=== PATIENT | male | born 1960 | race Caucasian/White ===

== ENCOUNTER 2017-08-10 14:02 | Emergency (ER) | payer SELFPAY ==
--- NOTE | 2017-08-10 14:16 | ER Document Report ---
ED Medical Screen (RME) - General Chief Complaint: Altered Mental Status Stated Complaint: HALLUCINATIONS Time Seen by Provider: 08/10/17 14:07 Notes: 56-year-old male patient brought to the emergency room by his daughters for confusion and hallucinations. By history he was admitted here in alcohol withdrawal in 2007. He has not had anything to drink since then. They note that since then his memory has been slowly getting worse. In the last week or so he has had episodes of seeing people walk into the counter at work and talking to them when other coworkers reported there was no one there. His daughters report that he has conversations with people that do not make any sense. He is aware of much of this. There is concerned that he may be developing early age onset dementia. His mother had dementia at an early age. I have greeted and performed a rapid initial assessment of this patient. A comprehensive ED assessment and evaluation of the patient, analysis of test results and completion of the medical decision making process will be conducted by additional ED providers. TRAVEL OUTSIDE OF THE [place].S. IN LAST 30 DAYS: No COUNTRY TRAVELED TO/FROM: [place] - Related Data Allergies/Adverse Reactions: Penicillins Adverse Reaction (Verified 08/10/17 14:06) Past Medical History Renal/ Medical History: Denies: Hx Peritoneal Dialysis Physical Exam - Vital signs Vitals: Temp Pulse Resp BP Pulse Ox 97.8 F 91 20 149/84 H 96 08/10/17 14:06 08/10/17 14:06 08/10/17 14:06 08/10/17 14:06 08/10/17 14:06 Course - Vital Signs Vital signs: Temp Pulse Resp BP Pulse Ox 97.8 F 91 20 149/84 H 96 08/10/17 14:06 08/10/17 14:06 08/10/17 14:06 08/10/17 14:06 08/10/17 14:06
--- NOTE | 2017-08-10 14:37 | ER Document Report ---
ED Neuro Symptoms/Deficit - General Chief Complaint: Altered Mental Status Stated Complaint: HALLUCINATIONS Time Seen by Provider: 08/10/17 14:07 Notes: The patient is a 56-year-old male, PMHx chronic lymphedema in his legs, who presents with 3 weeks of increasing visual hallucinations. He works in a scrap yard and started seeing people there that he knew were not actually present. He had similar episodes in 2007 when he was going through alcohol withdrawal and delirium tremens, but patient has not had any alcohol to drink and is not withdrawing. He is in the ER with his daughters, one who is a PCT, and they are concerned about early onset dementia because of increased forgetfulness. Patient denies headache, blurry vision, focal weakness, numbness, tingling, chest pain, shortness of breath, increased leg swelling, drug or alcohol use, fevers or neck stiffness. TRAVEL OUTSIDE OF THE [place].S. IN LAST 30 DAYS: No - Related Data Allergies/Adverse Reactions: Penicillins Adverse Reaction (Verified 08/10/17 14:06) Past Medical History - General Information source: Patient - Social History Smoking Status: Former Smoker Chew tobacco use (# tins/day): No Frequency of alcohol use: None Drug Abuse: None Family History: Reviewed & Not Pertinent - Past Medical History Cardiac Medical History: Reports: Hx Hypertension Renal/ Medical History: Denies: Hx Peritoneal Dialysis Past Surgical History: Reports: Hx Appendectomy - as child Review of Systems - Review of Systems Notes: REVIEW OF SYSTEMS: CONSTITUTIONAL: -fevers, -chills EENT: -eye pain, -difficulty swallowing, -nasal congestion CARDIOVASCULAR:-chest pain, -syncope. RESPIRATORY: -cough, -SOB GASTROINTESTINAL: -abdominal pain, -nausea, -vomiting, -diarrhea GENITOURINARY: -dysuria, -hematuria MUSCULOSKELETAL: -back pain, -neck pain, +B/L leg swelling SKIN: -rash or skin lesions. HEMATOLOGIC: -easy bruising or bleeding. LYMPHATIC: -swollen, enlarged glands. NEUROLOGICAL: -altered mental status or loss of consciousness, -headache PSYCHIATRIC: -anxiety, -depression, +hallucinations ALL OTHER SYSTEMS REVIEWED AND NEGATIVE. Physical Exam - Vital signs Vitals: Temp Pulse Resp BP Pulse Ox 97.8 F 91 20 149/84 H 96 08/10/17 14:06 08/10/17 14:06 08/10/17 14:06 08/10/17 14:06 08/10/17 14:06 - Notes Notes: PHYSICAL EXAMINATION: GENERAL: Well-appearing, well-nourished and in no acute distress. HEAD: Atraumatic, normocephalic. EYES: Pupils equal round and reactive to light, extraocular movements intact, sclera anicteric, conjunctiva are normal. ENT: nares patent, oropharynx clear without exudates. Moist mucous membranes. NECK: Normal range of motion, supple without lymphadenopathy LUNGS: Breath sounds clear to auscultation bilaterally and equal. No wheezes rales or rhonchi. HEART: Regular rate and rhythm without murmurs ABDOMEN: Soft, nontender, normoactive bowel sounds. No guarding, no rebound. No masses appreciated. EXTREMITIES: Diffuse swelling of bilateral legs. NEUROLOGICAL: Cranial nerves grossly intact. Normal speech, normal gait. Normal sensory and motor exams. PSYCH: Normal mood, normal affect. +visual hallucinations SKIN: Warm, Dry, normal turgor, no rashes or lesions noted. Course - Re-evaluation Re-evalutation: Patient appears well and is in no acute distress. His vital signs are stable and blood work and urine are unremarkable. Unfortunately, unable to obtain CT head due to weight limit of CT scanner at [place]. Patient has a completely normal neuro exam, other than the visual hallucinations. He is not suicidal or homicidal and has no psychiatric diagnoses. No history of drug use or alcohol withdrawal at this time. He follows at the [facility] and has an appointment next month. Patient also provided with an outpatient prescription for a head CT at [facility] if they are unable to obtain one through the [facility] with instructions to fax results to [facility] ER. - Vital Signs Vital signs: Temp Pulse Resp BP Pulse Ox 97.8 F 91 20 149/84 H 96 08/10/17 14:06 08/10/17 14:06 08/10/17 14:06 08/10/17 14:06 08/10/17 14:06 - Laboratory Result Diagrams: 08/10/17 14:40 08/10/17 14:40 Laboratory results interpreted by me: 08/10/17 08/10/17 14:40 16:07 RDW 15.8 H Urine Urobilinogen 2.0 H - EKG Interpretation by Me EKG shows normal: Sinus rhythm, Cyril, Intervals, QRS Complexes, ST-T Waves Rate: Normal Discharge - Discharge Clinical Impression: Hallucination, visual Condition: Stable Disposition: HOME, SELF-CARE Additional Instructions: Follow-up with the [facility] and Neuro[facility] clinic. You have an order for an outpatient head CT to be performed at [facility] if you are unable to obtain one through the [facility]. Return to the ER if you have worsening symptoms or any other concerns. Hallucinations You seem to be having hallucinations. Hallucinations are seeing, hearing, or feeling things that don't exist. You should return at once if your symptoms get worse, if you are having suicidal thoughts or thoughts about hurting others, or if you feel that you are in danger. Forms: Elevated Blood Pressure Referrals: JENNY DONG MD [Primary Care Provider] - Follow up as needed Lisa Valdes [Outside] - Follow up as needed
[2017-08-10 14:56] LABS: ABSOLUTE EOSINOPHILS # (AUTO) 0.1 10^3/uL (0.0-0.6); ABSOLUTE LYMPHOCYTES (AUTO) 1.8 10^3/uL (0.5-4.7); ABSOLUTE MONOCYTES (AUTO) 0.6 10^3/uL (0.1-1.4); ABSOLUTE NEUT (AUTO) 3.8 10^3/uL (1.7-8.2); BASOPHILS % (AUTO) 0.4 % (0-2); HEMATOCRIT 39.8 % (37.9-51.0); HEMOGLOBIN 13.5 g/dL (13.5-17.0); HGB HCT DIFFERENCE 0.7; LYMPHOCYTES % (AUTO) 28.6 % (13-45); MEAN CORPUSCULAR HEMOGLOBIN 28.1 pg (27.0-33.4); MEAN CORPUSCULAR HGB CONC 33.8 g/dL (32.0-36.0); MEAN CORPUSCULAR VOLUME 83 fl (80-97); MONOCYTES % (AUTO) 9.8 % (3-13); RED BLOOD COUNT 4.79 10^6/uL (4.35-5.55); RED CELL DISTRIBUTION WIDTH 15.8 % (11.5-14.0); SEGMENTED NEUTROPHILS % (AUTO) 59.2 % (42-78); WHITE BLOOD COUNT 6.4 10^3/uL (4.0-10.5)
[2017-08-10 15:15] LABS: ALANINE AMINOTRANSFERASE 34 U/L (21-72); ALBUMIN 3.7 g/dL (3.5-5.0); ALKALINE PHOSPHATASE 77 U/L (38-126); ANION GAP 11 (5-19); ASPARTATE AMINO TRANSFERASE 20 U/L (17-59); BILIRUBIN,DIRECT 0.4 mg/dL (0.0-0.4); BILIRUBIN,TOTAL 0.6 mg/dL (0.2-1.3); BLOOD UREA NITROGEN 19 mg/dL (7-20); CALCIUM 8.7 mg/dL (8.4-10.2); CARBON DIOXIDE 26 mmol/L (22-30); CHLORIDE 106 mmol/L (98-107); CREATININE RESULT 1.16 mg/dL (0.52-1.25); GLUCOSE 105 mg/dL (75-110); SODIUM 143.3 mmol/L (137-145)
[2017-08-10 16:23] LABS: APPEARANCE,URINE CLEAR; BILIRUBIN,URINE NEGATIVE (NEGATIVE); GLUCOSE, URINE NEGATIVE (NEGATIVE); KETONES,URINE NEGATIVE (NEGATIVE); LEUKOCYTE ESTERASE,URINE NEGATIVE (NEGATIVE); NITRITE,URINE NEGATIVE (NEGATIVE); PROTEIN,URINE NEGATIVE (NEGATIVE); URINE SPECIFIC GRAVITY 1.026
[2017-08-10 16:47] LABS: URINE BARBITURATES SCREEN NEGATIVE; URINE METHADONE SCREEN NEGATIVE; URINE OPIATES LOW NEGATIVE; URINE PHENCYCLIDINE SCREEN NEGATIVE
[2017-08-10 17:32] VITALS: BP 144/72
--- NOTE | 2017-08-10 20:33 | EKG REPORT ---
SEVERITY:- ABNORMAL ECG - SINUS RHYTHM PROBABLE LEFT ATRIAL ABNORMALITY NONSPECIFIC INTRAVENTRICULAR CONDUCTION DELAY : Confirmed by: Gwendolyn Nascimento MD 10-Aug-2017 20:32:32
== END 2017-08-10 17:24 | disposition home or self-care (01) ==
LOC: ER 14:02
DX: R44.1 Visual hallucinations (principal); R41.82 Altered mental status, unspecified; Z87.891 Personal history of nicotine dependence
CPT/HCPCS: 36415; 80053; 80307; 81001; 83735; 84443; 85025; 93005; 93010; 99285

== ENCOUNTER → 2017-09-30 | Outpatient (CLI) | payer OTHER ==
[2017-09-30 15:56] LABS: FOLATE 16.5 ng/mL (>2.76)
== END ==
LOC: CCC 13:10
DX: R44.3 Hallucinations, unspecified (principal)
CPT/HCPCS: 36415; 82607; 82746; 86592

== ENCOUNTER → 2017-11-11 | Outpatient (CLI) | payer OTHER | LOC: OD 10:23 | DX: R44.3 Hallucinations, unspecified (principal) | CPT/HCPCS: 36415; 83036 ==

== ENCOUNTER → 2018-05-25 | Outpatient (CLI) | payer OTHER ==
--- NOTE | 2018-05-25 14:20 | RADIOLOGY REPORT (SQ) ---
EXAM DESCRIPTION: MRI HEAD WITHOUT COMPLETED DATE/TIME: 05/25/2018 1:37 pm REASON FOR STUDY: SHORT TERM MEMORY LOSS (R41.3) R41.3 OTHER AMNESIA COMPARISON: CT brain 02/09/2008 TECHNIQUE: Multiplanar imaging includes non-contrasted T1, T2, FLAIR, and diffusion with ADC map seq uences. Images stored on PACS. LIMITATIONS: None. FINDINGS: ANATOMY: No anomalies. Normal vascular flow voids. Pituitary fossa normal. CSF SPACES: Normal in size and contour. No hemorrhage. CEREBRUM: Sulci and gyri normal in size and contour. Normal white matter signal on FLAIR imaging. No evidence of hemorrhage, mass, or extraaxial fluid collection. POSTERIOR FOSSA: No signal alteration. No hemorrhage. No edema, masses or mass effect. Internal misty tory canals, cerebello-pontine angles, mastoids normal. DIFFUSION IMAGING: Negative for acute or sub-acute infarction. ORBITS: No masses. Globes normal. PARANASAL SINUSES: No fluid levels. Mucosa normal. OTHER: No other significant finding. IMPRESSION: NORMAL MRI OF THE BRAIN WITHOUT INTRAVENOUS GADOLINIUM CONTRAST. EVIDENCE OF ACUTE STROKE: NO. TECHNICAL DOCUMENTATION: JOB ID: [id number] [employer]- All Rights Reserved Reading location - IP/workstation name: [email or web address]
== END ==
LOC: RAD 12:24
DX: R41.3 Other amnesia (principal)
CPT/HCPCS: 70551

== ENCOUNTER → 2018-09-22 | Outpatient (CLI) | payer OTHER ==
[2018-09-22 08:44] LABS: ABSOLUTE EOSINOPHILS # (AUTO) 0.1 10^3/uL (0.0-0.6); ABSOLUTE LYMPHOCYTES (AUTO) 1.5 10^3/uL (0.5-4.7); ABSOLUTE MONOCYTES (AUTO) 0.5 10^3/uL (0.1-1.4); ABSOLUTE NEUT (AUTO) 4.4 10^3/uL (1.7-8.2); BASOPHILS % (AUTO) 0.4 % (0-2); EOSINOPHILS % (AUTO) 1.4 % (0-6); HEMATOCRIT 43.9 % (37.9-51.0); HEMOGLOBIN 15.1 g/dL (13.5-17.0); LYMPHOCYTES % (AUTO) 22.8 % (13-45); MEAN CORPUSCULAR HEMOGLOBIN 30.2 pg (27.0-33.4); MEAN CORPUSCULAR HGB CONC 34.4 g/dL (32.0-36.0); MEAN CORPUSCULAR VOLUME 88 fl (80-97); MONOCYTES % (AUTO) 7.6 % (3-13); PLATELET COUNT 113 10^3/uL (150-450); RED BLOOD COUNT 5.02 10^6/uL (4.35-5.55); RED CELL DISTRIBUTION WIDTH 14.8 % (11.5-14.0); SEGMENTED NEUTROPHILS % (AUTO) 67.8 % (42-78); TOTAL CELLS COUNTED % (AUTO) 100 %; WHITE BLOOD COUNT 6.5 10^3/uL (4.0-10.5)
--- NOTE | 2018-09-22 08:53 | RADIOLOGY REPORT (SQ) ---
EXAM DESCRIPTION: U/S ABDOMEN COMPLETE W/O DOP COMPLETED DATE/TIME: 09/22/2018 8:28 am REASON FOR STUDY: VENTRAL HERNIA K43.9 VENTRAL HERNIA WITHOUT OBSTRUCTION OR GANGRENE COMPARISON: None. TECHNIQUE: Dynamic and static grayscale images acquired of the localized site of clinical concern an d recorded on PACS. Additional selected color Doppler and spectral images recorded. SITE OF CONCERN: Ventral abdominal wall superior to the umbilicus. LIMITATIONS: None. FINDINGS: SKIN AND SUBCUTANEOUS TISSUES: No masses. No fluid collections. No edema. No foreign asher s. DEEP SOFT TISSUES/MUSCLES: There is a ventral hernia, defect approaching 3 cm. Mild protrusion of stacey wel into the hernia with Valsalva. VASCULAR: No increased or decreased vascularity. No occlusions. OTHER: No other significant finding. IMPRESSION: Supraumbilical ventral hernia as above. TECHNICAL DOCUMENTATION: JOB ID: [id number] [employer]- All Rights Reserved Reading location - IP/workstation name: [email or web address]
[2018-09-22 09:12] LABS: ALANINE AMINOTRANSFERASE 25 U/L (21-72); ALBUMIN 3.8 g/dL (3.5-5.0); ALKALINE PHOSPHATASE 64 U/L (38-126); ANION GAP 11 (5-19); ASPARTATE AMINO TRANSFERASE 24 U/L (17-59); BILIRUBIN,DIRECT 0.2 mg/dL (0.0-0.4); BILIRUBIN,TOTAL 0.6 mg/dL (0.2-1.3); BLOOD UREA NITROGEN 19 mg/dL (7-20); CALCIUM 9.2 mg/dL (8.4-10.2); CARBON DIOXIDE 29 mmol/L (22-30); CHLORIDE 106 mmol/L (98-107); CHOLESTEROL 127.83 mg/dL (0-200); GLUCOSE 85 mg/dL (75-110); POTASSIUM 3.9 mmol/L (3.6-5.0); SODIUM 145.8 mmol/L (137-145); TOTAL PROTEIN 7.1 g/dL (6.3-8.2); TRIGLYCERIDES 63 mg/dL (<150); URIC ACID 5.7 mg/dL (3.5-8.5)
[2018-09-22 09:23] LABS: DIRECT LDL 88 mg/dL (<100)
== END ==
LOC: RAD 07:37
DX: Z00.00 Encounter for general adult medical examination without abnormal findings (principal); K43.9 Ventral hernia without obstruction or gangrene; E66.01 Morbid (severe) obesity due to excess calories; I89.0 Lymphedema, not elsewhere classified
CPT/HCPCS: 36415; 76700; 80053; 80061; 84436; 84443; 84550; 85025

== ENCOUNTER 2019-07-07 11:33 | Emergency (ER) | payer MEDICAID, OTHER ==
--- NOTE | 2019-07-07 12:16 | ER Document Report ---
ED General - General Chief Complaint: Leg Swelling Stated Complaint: LEG SWELLING Time Seen by Provider: 07/07/19 12:08 Primary Care Provider: [facility] [NO LOCAL MD] - Follow up as needed TRAVEL OUTSIDE OF THE U.S. IN LAST 30 DAYS: No - HPI Patient complains to provider of: Leg swelling Notes: 58-year-old man with history of lymphedema presents with increasing swelling in his left leg. Patient denies all the symptoms of pain. Family concerned he might possibly have a urinary tract infection or some cellulitis in the leg. Although patient denies any pain. Has history of urinary tract infection. Scheduled to see his PCP next week denies all of the symptoms. - Related Data Allergies/Adverse Reactions: Penicillins Adverse Reaction (Verified 07/07/19 11:37) Past Medical History - Social History Smoking Status: Unknown if Ever Smoked Family History: Reviewed & Not Pertinent - Past Medical History Cardiac Medical History: Reports: Hx Hypertension Renal/ Medical History: Denies: Hx Peritoneal Dialysis Past Surgical History: Reports: Hx Appendectomy - as child Review of Systems - Review of Systems Notes: REVIEW OF SYSTEMS: CONSTITUTIONAL: -fevers, -chills EENT: -eye pain, -difficulty swallowing, -nasal congestion CARDIOVASCULAR: -chest pain, -syncope. RESPIRATORY: -cough, -SOB GASTROINTESTINAL: -abdominal pain, -nausea, -vomiting, -diarrhea GENITOURINARY: -dysuria, -hematuria MUSCULOSKELETAL: Increasing swelling left leg SKIN: -rash or skin lesions. HEMATOLOGIC: -easy bruising or bleeding. NEUROLOGICAL: -altered mental status or loss of consciousness, -headache, - neurologic symptoms PSYCHIATRIC: -anxiety, -depression. ALL OTHER SYSTEMS REVIEWED AND NEGATIVE. Physical Exam - Vital signs Vitals: Temp Pulse Resp BP Pulse Ox 97.7 F 69 20 108/72 100 07/07/19 11:45 07/07/19 11:45 07/07/19 11:45 07/07/19 11:45 07/07/19 11:45 - Notes Notes: PHYSICAL EXAMINATION: GENERAL: Well-appearing, well-nourished and in no acute distress. HEAD: Atraumatic, normocephalic. EYES: Pupils equal round and reactive to light, extraocular movements intact, sclera anicteric, conjunctiva are normal. ENT: nares patent, oropharynx clear without exudates. Moist mucous membranes. NECK: Normal range of motion, supple without lymphadenopathy LUNGS: Breath sounds clear to auscultation bilaterally and equal. No wheezes rales or rhonchi. HEART: Regular rate and rhythm without murmurs ABDOMEN: Soft, nontender, normoactive bowel sounds. No guarding, no rebound. No masses appreciated. EXTREMITIES: Profound bilateral lower extremity swelling lymphedema, no warmth or erythema overlying either leg palpable pulses NEUROLOGICAL: Cranial nerves grossly intact. Normal speech, normal gait. Normal sensory and motor exams. PSYCH: Normal mood, normal affect. SKIN: Warm, Dry, normal turgor, no rashes or lesions noted. Course - Re-evaluation Re-evalutation: 07/07/19 13:46 Well-appearing man reassuring physical exam, afebrile stable vitals. Overlying skin does not look infected, urine shows no signs of infection.. Will be discharged home with oral antibiotics at the request of the family. Follow-up with your PCP next week. - Vital Signs Vital signs: Temp Pulse Resp BP Pulse Ox 97.7 F 69 20 108/72 100 07/07/19 11:45 07/07/19 11:45 07/07/19 11:45 07/07/19 11:45 07/07/19 11:45 - Laboratory Laboratory results interpreted by me: 07/07/19 12:45 Urine Urobilinogen 4.0 H Ur Leukocyte Esterase TRACE H Discharge - Discharge Clinical Impression: Left leg swelling Condition: Stable Disposition: HOME, SELF-CARE Prescriptions: Cefdinir [Omnicef 300 mg Capsule] 1 cap PO BID #14 capsule Ref[facility]: [facility] [NO LOCAL MD] - Follow up as needed
[2019-07-07 13:12] LABS: APPEARANCE,URINE SLIGHTLY-CLOUDY; BILIRUBIN,URINE NEGATIVE (NEGATIVE); COLOR,URINE AMBER; GLUCOSE, URINE NEGATIVE (NEGATIVE); KETONES,URINE NEGATIVE (NEGATIVE); LEUKOCYTE ESTERASE,URINE TRACE (NEGATIVE); NITRITE,URINE NEGATIVE (NEGATIVE); PROTEIN,URINE NEGATIVE (NEGATIVE)
[2019-07-07 14:12] VITALS: BP 96/65
== END 2019-07-07 14:11 | disposition home or self-care (01) ==
LOC: ER 11:33
DX: M79.89 Other specified soft tissue disorders (principal); I10 Essential (primary) hypertension; Z88.0 Allergy status to penicillin
CPT/HCPCS: 81001

== ENCOUNTER 2019-10-08 07:55 | Emergency (ER) | payer MEDICAID ==
--- NOTE | 2019-10-08 09:24 | ER Document Report ---
ED Head/Face/Scalp Injury - General Chief Complaint: Head Injury without LOC Stated Complaint: FALL/HEAD PAIN Time Seen by Provider: 10/08/19 09:18 Primary Care Provider: SARTHAK SANCHEZ FNP [Primary Care Provider] - Follow up as needed Notes: Patient is a 58-year-old male who had an episode of syncope with a fall during which she hit his head today. Patient has fallen out of bed now 3 times which is unusual for him. Per family, patient has a history of dementia. States that he has been walking hunched over over the last week but they thought it was from pain from a fall. He has a hernia. He has been eating and drinking. No nausea or vomiting. No foul-smelling urine or fever. No cough. No other concerns at they are aware of except for multiple falls and episode of syncope today. Patient takes Wellbutrin daily. He is otherwise not on any medications. He apparently does not sleep well. TRAVEL OUTSIDE OF THE [place] IN LAST 30 DAYS: No - Related Data Allergies/Adverse Reactions: Penicillins Allergy (Verified 10/08/19 08:07) Past Medical History - Social History Smoking Status: Never Smoker Chew tobacco use (# tins/day): No Frequency of alcohol use: None Drug Abuse: None Family History: Reviewed & Not Pertinent Patient has suicidal ideation: No Patient has homicidal ideation: No - Past Medical History Cardiac Medical History: Reports: Hx Hypertension Renal/ Medical History: Denies: Hx Peritoneal Dialysis Past Surgical History: Reports: Hx Appendectomy - as child Review of Systems - Review of Systems -: Yes All other systems reviewed and negative Physical Exam - Vital signs Vitals: Pulse Resp BP Pulse Ox 57 L 16 137/83 H 100 10/08/19 08:01 10/08/19 08:01 10/08/19 08:01 10/08/19 08:01 Interpretation: Bradycardic - General General appearance: Lethargic In distress: None - HEENT Head: Normocephalic, Ecchymosis, Other - Hematoma to forehead with small laceration Eyes: Normal Extraocular movements intact: Yes Pupils: PERRL Mucous membranes: Dry - Respiratory Respiratory status: No respiratory distress Chest status: Nontender Breath sounds: Normal - Cardiovascular Rhythm: Regular, Bradycardia - Abdominal Inspection: Other - Hernia Tenderness: Nontender - Back Back: Tender. No: Vertebra tenderness - Extremities General upper extremity: Normal ROM, Other - Multiple bruises to bilateral upper extremities with superficial abrasion over proximal left forearm. Bleeding controlled General lower extremity: Edema - Bilateral lymphedema - Neurological Cognition: Confused [place] Coma Scale Eye Opening: To Voice Elva Coma Scale Verbal: Confused [place] Coma Scale Motor: Obeys Commands [place] Coma Scale Total: 13 - Psychological Associated symptoms: Flat affect - Skin Skin Temperature: Warm Skin Moisture: Dry Course - Re-evaluation Re-evalutation: 10/08/19 10:47 Patient with falls over the last week that are new for him. Patient had an episode of syncope today that was witnessed by his family member in which he wound up hitting his head without trying to protect himself or face. Will get blood work and urine to evaluate further because of falls recently as there appears to be a possible underlying metabolic issue. 10/08/19 11:37 Called from radiologist that there is a small focus of blood in the lateral ventricle. Likely traumatic. Will contact trauma services at [place]. Family updated 10/08/19 12:[address] No acute findings on CT cervical spine. CT A/P with hernia, no obstruction or bony injuries. CXR wnl CBC wnl Lactic neg. CMP hemolyzed, will be redrawn. 10/08/19 12:02 Discussed with Amira Pena. Will be accepted as trauma [facility]. [facility] will arrange transportation. 10/08/19 12:21 Rubi catheter ordered. Blood work still pending. Family updated. Understand agree with transfer. 10/08/19 14:58 Transport is here for patient. Accu-Chek done showing blood sugar of 78. Patient is n.p.o. Will be started on D5 half-normal saline drip. Otherwise stable for medical transport. Of note, Troponin and chemistry within normal limits and urine with slight ketones with no evidence for infection. - Vital Signs Vital signs: Temp Pulse Resp BP Pulse Ox 97.4 F 57 L 17 102/69 100 10/08/19 14:01 10/08/19 08:08 10/08/19 14:01 10/08/19 14:01 10/08/19 14:01 - Laboratory Result Diagrams: 10/08/19 10:50 10/08/19 12:50 Laboratory results interpreted by me: 10/08/19 10/08/19 10/08/19 10:50 12:50 12:50 RDW 15.5 H APTT 36.5 H BUN 24 H Urine Ketones Urine Urobilinogen 10/08/19 13:01 RDW APTT BUN Urine Ketones TRACE H Urine Urobilinogen 4.0 H - Diagnostic Test Radiology reviewed: Image reviewed, Reports reviewed - EKG Interpretation by Me EKG shows normal: Sinus rhythm Rate: Bradycardia - 52 Heart block present: 1st Degree When compared to previous EKG there are: No significant change Discharge - Discharge Clinical Impression: Intracranial hemorrhage, Syncope and collapse, Bradycardia Condition: Stable Disposition: [facility] Referrals: SARTHAK SANCHEZ FNP [Primary Care Provider] - Follow up as needed
[2019-10-08 11:21] LABS: ABSOLUTE EOSINOPHILS # (AUTO) 0.1 10^3/uL (0.0-0.6); ABSOLUTE LYMPHOCYTES (AUTO) 1.8 10^3/uL (0.5-4.7); ABSOLUTE MONOCYTES (AUTO) 0.6 10^3/uL (0.1-1.4); ABSOLUTE NEUT (AUTO) 3.7 10^3/uL (1.7-8.2); BASOPHILS % (AUTO) 0.4 % (0-2); EOSINOPHILS % (AUTO) 1.1 % (0-6); HEMATOCRIT 44.7 % (37.9-51.0); HEMOGLOBIN 15.2 g/dL (13.5-17.0); MEAN CORPUSCULAR HEMOGLOBIN 30.7 pg (27.0-33.4); MEAN CORPUSCULAR HGB CONC 33.9 g/dL (32.0-36.0); MEAN CORPUSCULAR VOLUME 90 fl (80-97); MONOCYTES % (AUTO) 10.3 % (3-13); RED BLOOD COUNT 4.94 10^6/uL (4.35-5.55); RED CELL DISTRIBUTION WIDTH 15.5 % (11.5-14.0); SEGMENTED NEUTROPHILS % (AUTO) 59.2 % (42-78); TOTAL CELLS COUNTED % (AUTO) 100 %; WHITE BLOOD COUNT 6.2 10^3/uL (4.0-10.5)
--- NOTE | 2019-10-08 11:29 | RADIOLOGY REPORT (SQ) ---
EXAM DESCRIPTION: CHEST SINGLE VIEW COMPLETED DATE/TIME: 10/08/2019 10:23 am REASON FOR STUDY: AMS COMPARISON: None. EXAM PARAMETERS: NUMBER OF VIEWS: One view. TECHNIQUE: An AP view of the chest was obtained. RADIATION DOSE: NA LIMITATIONS: None. FINDINGS: LUNGS AND PLEURA: No consolidation, pleural effusion or pneumothorax. MEDIASTINUM AND HILAR STRUCTURES: No mediastinal or hilar contour abnormality. HEART AND VASCULAR STRUCTURES: The cardiac silhouette and pulmonary vasculature are within normal ayala its. BONES: No acute findings. HARDWARE: None in the chest. OTHER: No other finding. IMPRESSION: No acute cardiopulmonary process. TECHNICAL DOCUMENTATION: JOB ID: [id number] [employer]- All Rights Reserved Reading location - IP/workstation name: [email or web address]
--- NOTE | 2019-10-08 11:46 | RADIOLOGY REPORT (SQ) ---
EXAM DESCRIPTION: CT HEAD WITHOUT COMPLETED DATE/TIME: 10/08/2019 10:31 am REASON FOR STUDY: fall COMPARISON: CT of the head without contrast from 02/09/2008 and MRI of the brain without contrast fro 05/25/2018 TECHNIQUE: Axial images acquired through the brain without intravenous contrast. Images reviewed wi th bone, brain and subdural windows. Additional sagittal and coronal reconstructions were generated. Images stored on PACS. All CT scanners at this facility use dose modulation, iterative reconstruction, and/or weight based d osing when appropriate to reduce radiation dose to as low as reasonably achievable (ALARA). [facility]: Dose Right [facility]: CareDose [facility]: Dose Right [facility]: Teradose 4D [facility]: Smart Technologies RADIATION DOSE: CT Rad equipment meets quality standard of care and radiation dose reduction techniq ues were employed. CTDIvol: 23.1 mGy. DLP: 1020 mGy-cm. mGy. LIMITATIONS: Evaluation is limited due to motion artifact. FINDINGS: Evaluation is limited due to motion artifact. There is a focus of hyperdensity within the dependent portion of the occipital horn of the right lateral ventricle (image 26 of series 6). Ther e is no other area of intracranial hemorrhage. There is no vascular territorial infarct, extra-axial fluid collection, mass effect or midline shift. There is no effacement of the cerebral sulci or basal subarachnoid cisterns. The mejias-white matter differentiation is preserved. The caliber the ventricles is concordant with the degree of sulcation . There is a right frontal extracranial hematoma. There is no associated calvarial fracture. The orbi ts and globes are intact. There is no paranasal sinus air-fluid level. IMPRESSION: 1. Focus of hyperdensity within the dependent portion of the occipital horn of the right lateral ventricle (image 26 of series 6) could represent a traumatic intraventricular hemorrhage. A follow-up CT in 24 hours is recommended. 2. Right frontal extracranial hematoma. EVIDENCE OF ACUTE STROKE: NO. COMMENT: This report was called to the ED at11:39 on 10/08/2019. Quality ID # [id number]: Final reports with documentation of one or more dose reduction techniques (e.g., Au tomated exposure control, adjustment of the mA and/or kV according to patient size, use of iterative reconstruction technique) TECHNICAL DOCUMENTATION: JOB ID: [id number] [employer]- All Rights Reserved Reading location - IP/workstation name: [email or web address]
--- NOTE | 2019-10-08 11:53 | RADIOLOGY REPORT (SQ) ---
EXAM DESCRIPTION: CT ABD/PELVIS NO ORAL OR IV COMPLETED DATE/TIME: 10/08/2019 10:31 am REASON FOR STUDY: fall, pain COMPARISON: 1150 mGy cm TECHNIQUE: CT scan of the abdomen and pelvis performed without intravenous or oral contrast. Images reviewed with lung, soft tissue, and bone windows. Reconstructed coronal and sagittal MPR images revi ewed. All images stored on PACS. All CT scanners at this facility use dose modulation, iterative reconstruction, and/or weight based d osing when appropriate to reduce radiation dose to as low as reasonably achievable (ALARA). [facility]: Dose Right [facility]: CareDose [facility]: Dose Right [facility]: Teradose 4D [facility]: Diarize RADIATION DOSE: CT Rad equipment meets quality standard of care and radiation dose reduction techniq ues were employed. CTDIvol: 20.8 mGy. DLP: 1150 mGy-cm.mGy. LIMITATIONS: Lack of intravenous contrast, patient arm positioning and related streak artifact. FINDINGS: LOWER CHEST: No significant findings. No nodules or infiltrates. NON-CONTRASTED LIVER, SPLEEN, ADRENALS: Evaluation limited by lack of IV contrast. No identified sign ificant masses. PANCREAS: No masses. No peripancreatic inflammatory changes. GALLBLADDER: Calcified gallstone in the dependent gallbladder near the gallbladder neck. . No inflam matory changes to suggest cholecystitis. RIGHT KIDNEY AND URETER: No solid masses. Small nonobstructive inferior pole calculus. No hydroneph rosis or hydroureter. LEFT KIDNEY AND URETER: Very atrophic, dysplastic, or surgically absent left kidney. AORTA AND RETROPERITONEUM: No aneurysm. No retroperitoneal masses or adenopathy. Calcific atheroscle rosis. Bold BOWEL AND PERITONEAL CAVITY: No obvious masses or inflammatory changes. No free fluid. APPENDIX: Normal. PELVIS, BLADDER, AND ABDOMINAL WALL:No abnormal masses. No free fluid. Bladder normal. There is a lo w midline ventral hernia containing fat and transverse colon. No evidence of bowel obstruction. BONES: No significant findings. OTHER: No other significant finding. IMPRESSION: 1. No noncontrast CT evidence of acute traumatic injury to the abdomen or pelvis. Exam ination is significantly limited by lack of intravenous contrast and patient arm positioning across t he abdomen with associated streak artifact. 2. There is a low midline ventral hernia containing fat and transverse colon. No evidence of bowel ob struction. 3. Nonobstructive right nephrolithiasis. 4. Very atrophic, dysplastic, or surgically absent left kidney. 5. Cholelithiasis. TECHNICAL DOCUMENTATION: JOB ID: [id number] Quality ID # [id number]: Final reports with documentation of one or more dose reduction techniques (e.g., Au tomated exposure control, adjustment of the mA and/or kV according to patient size, use of iterative reconstruction technique) 2010 [employer]- All Rights Reserved Reading location - IP/workstation name: [email or web address]
[2019-10-08 11:55] LABS: PLATELET COUNT 245 10^3/uL (150-450)
--- NOTE | 2019-10-08 11:56 | RADIOLOGY REPORT (SQ) ---
EXAM DESCRIPTION: CT CERVICAL SPINE WITHOUT COMPLETED DATE/TIME: 10/08/2019 10:31 am REASON FOR STUDY: fall COMPARISON: None. TECHNIQUE: Axial images acquired through the cervical spine without intravenous contrast. Images re viewed with lung, soft tissue and bone windows. Reconstructed coronal and sagittal MPR images review ed. Images stored on PACS. All CT scanners at this facility use dose modulation, iterative reconstruction, and/or weight based d osing when appropriate to reduce radiation dose to as low as reasonably achievable (ALARA). [facility]: Dose Right [facility]: CareDose [facility]: Dose Right [facility]: Teradose 4D [facility]: [email or web address] RADIATION DOSE: CT Rad equipment meets quality standard of care and radiation dose reduction techniq ues were employed. CTDIvol: 20.2 mGy. DLP: 830 mGy-cm. LIMITATIONS: Evaluation is limited due to motion artifact. FINDINGS: ALIGNMENT: There is reversal of the normal lordotic curvature of the cervical spine. Ther e is no craniocervical or atlantoaxial dissociation. MINERALIZATION: Normal. VERTEBRAL BODIES: The cervical vertebral body heights are preserved. There is no fracture. DISCS: The intervertebral disc spaces from C3-C4 to C7-T1 are narrowed and there is associated endpla te irregularity and osteophyte formation ; in addition, at these levels there are posterior disc oste ophyte complexes that encroach on the ventral aspect of the thecal sac without gross mass effect on t he cord. FACETS, LATERAL MASSES, POSTERIOR ELEMENTS: No fracture or malalignment. There is mild bilateral ost eophytic foraminal stenosis due to uncovertebral hypertrophy from C3-C4 to C6-C7. HARDWARE: None in the spine. VISUALIZED RIBS: No fractures. LUNG APICES AND SOFT TISSUES: No pre or paravertebral hematoma. There are several subcentimeter hypo dense nodules in the thyroid gland that are nonspecific. OTHER: No other finding. IMPRESSION: No acute fracture or malalignment of the cervical spine. TECHNICAL DOCUMENTATION: JOB ID: [id number] Quality ID # [id number]: Final reports with documentation of one or more dose reduction techniques (e.g., Au tomated exposure control, adjustment of the mA and/or kV according to patient size, use of iterative reconstruction technique) 2010 [employer]- All Rights Reserved Reading location - IP/workstation name: [email or web address]
[2019-10-08] MEDS ORDERED: NORMAL SALINE 1000 ML 1,000 ML IV ONE (11:59)
[2019-10-08 13:10] LABS: VENOUS BLOOD BASE EXCESS 1.4 mmol/L; VENOUS BLOOD HCO3 28.4 mmol/L (20-32); VENOUS BLOOD PH 7.34 (7.30-7.42)
[2019-10-08 13:23] LABS: PROTHROMBIN TIME 15.3 SEC (11.4-15.4)
[2019-10-08 13:28] LABS: ALBUMIN 4.1 g/dL (3.5-5.0); ALKALINE PHOSPHATASE 76 U/L (38-126); ANION GAP 9 (5-19); ASPARTATE AMINO TRANSFERASE 43 U/L (17-59); BILIRUBIN,DIRECT 0.2 mg/dL (0.0-0.4); BILIRUBIN,TOTAL 0.8 mg/dL (0.2-1.3); BLOOD UREA NITROGEN 24 mg/dL (7-20); CALCIUM 9.5 mg/dL (8.4-10.2); CARBON DIOXIDE 29 mmol/L (22-30); CHLORIDE 103 mmol/L (98-107); GLUCOSE 80 mg/dL (75-110); POTASSIUM 3.8 mmol/L (3.6-5.0); TOTAL PROTEIN 7.7 g/dL (6.3-8.2)
[2019-10-08 13:50] LABS: APPEARANCE,URINE CLEAR; BILIRUBIN,URINE NEGATIVE (NEGATIVE); COLOR,URINE YELLOW; GLUCOSE, URINE NEGATIVE (NEGATIVE); KETONES,URINE TRACE mg/dL (NEGATIVE); PROTEIN,URINE NEGATIVE (NEGATIVE)
[2019-10-08] MEDS ORDERED: DEXTROSE 5%-1/2 NORMAL SALINE 1,000 ML IV ONE (14:58)
[2019-10-08 15:34] VITALS: BP 110/62
--- NOTE | 2019-10-08 16:47 | EKG REPORT ---
SEVERITY:- ABNORMAL ECG - SINUS RHYTHM FIRST DEGREE AV BLOCK NONSPECIFIC INTRAVENTRICULAR CONDUCTION DELAY : Confirmed by: Jess Lai 08-Oct-2019 16:46:49
== END 2019-10-08 15:32 | disposition short-term general hospital (02) ==
LOC: ER 07:55
DX: I61.5 Nontraumatic intracerebral hemorrhage, intraventricular (principal); S01.81XA Laceration without foreign body of other part of head, initial encounter; S40.022A Contusion of left upper arm, initial encounter; S40.021A Contusion of right upper arm, initial encounter; S50.812A Abrasion of left forearm, initial encounter; W06.XXXA Fall from bed, initial encounter; R55 Syncope and collapse; R00.1 Bradycardia, unspecified; R29.6 Repeated falls; K43.9 Ventral hernia without obstruction or gangrene; I10 Essential (primary) hypertension; I44.0 Atrioventricular block, first degree; I89.0 Lymphedema, not elsewhere classified; Z79.899 Other long term (current) drug therapy; Z88.0 Allergy status to penicillin
CPT/HCPCS: 93005; 99285; 51702; 36415; 87040; 82962; 85025; 85610; 85730; 80053; 81001; 84484; 82803; 83605; 71045; 70450; 72125; 74176; 93010; C1758

== ENCOUNTER 2019-11-10 16:51 | Inpatient (IN) | payer MEDICAID ==
[2019-11-10 17:49] LABS: ABSOLUTE LYMPHOCYTES (AUTO) 1.1 10^3/uL (0.5-4.7); ABSOLUTE MONOCYTES (AUTO) 1.4 10^3/uL (0.1-1.4); ABSOLUTE NEUT (AUTO) 12.4 10^3/uL (1.7-8.2); BASOPHILS % (AUTO) 0.2 % (0-2); LYMPHOCYTES % (AUTO) 7.2 % (13-45); MEAN CORPUSCULAR HEMOGLOBIN 30.9 pg (27.0-33.4); MEAN CORPUSCULAR HGB CONC 33.4 g/dL (32.0-36.0); MEAN CORPUSCULAR VOLUME 93 fl (80-97); MONOCYTES % (AUTO) 9.6 % (3-13); PLATELET COUNT 160 10^3/uL (150-450); RED BLOOD COUNT 5.51 10^6/uL (4.35-5.55); RED CELL DISTRIBUTION WIDTH 16.6 % (11.5-14.0); TOTAL CELLS COUNTED % (AUTO) 100 %
[2019-11-10 18:06] LABS: ALBUMIN 3.6 g/dL (3.5-5.0); ALKALINE PHOSPHATASE 73 U/L (38-126); ANION GAP 9 (5-19); ASPARTATE AMINO TRANSFERASE 294 U/L (17-59); BILIRUBIN,DIRECT 0.1 mg/dL (0.0-0.4); BILIRUBIN,TOTAL 1.2 mg/dL (0.2-1.3); BLOOD UREA NITROGEN 56 mg/dL (7-20); CALCIUM 9.4 mg/dL (8.4-10.2); CARBON DIOXIDE 26 mmol/L (22-30); CHLORIDE 108 mmol/L (98-107); GLUCOSE 110 mg/dL (75-110); POTASSIUM 4.9 mmol/L (3.6-5.0); TOTAL PROTEIN 7.1 g/dL (6.3-8.2)
--- NOTE | 2019-11-10 18:47 | RADIOLOGY REPORT (SQ) ---
EXAM DESCRIPTION: CHEST SINGLE VIEW COMPLETED DATE/TIME: 11/10/2019 6:25 pm REASON FOR STUDY: ams COMPARISON: 10/08/2019 EXAM PARAMETERS: NUMBER OF VIEWS: One view. TECHNIQUE: Single frontal radiographic view of the chest acquired. RADIATION DOSE: NA LIMITATIONS: Suboptimal patient positioning. FINDINGS: LUNGS AND PLEURA: No opacities, masses or pneumothorax. No pleural effusion. MEDIASTINUM AND HILAR STRUCTURES: No masses. Contour normal. HEART AND VASCULAR STRUCTURES: Heart normal in size. Normal vasculature. BONES: No acute findings. HARDWARE: None in the chest. OTHER: No other significant finding. IMPRESSION: Limited examination. No evidence of acute cardiopulmonary abnormality. TECHNICAL DOCUMENTATION: JOB ID: [id number] [employer]- All Rights Reserved Reading location - IP/workstation name: [email or web address]
[2019-11-10] MEDS ORDERED: NORMAL SALINE 1000 ML 1,000 ML IV ONE ×2 (18:49)
--- NOTE | 2019-11-10 18:49 | RADIOLOGY REPORT (SQ) ---
EXAM DESCRIPTION: CT HEAD WITHOUT COMPLETED DATE/TIME: 11/10/2019 6:33 pm REASON FOR STUDY: ams COMPARISON: 10/08/2019. TECHNIQUE: Axial images acquired through the brain without intravenous contrast. Images reviewed wi th bone, brain and subdural windows. Additional sagittal and coronal reconstructions were generated. Images stored on PACS. All CT scanners at this facility use dose modulation, iterative reconstruction, and/or weight based d osing when appropriate to reduce radiation dose to as low as reasonably achievable (ALARA). [facility]: Dose Right [facility]: CareDose [facility]: Dose Right [facility]: Teradose 4D [facility]: [email or web address] RADIATION DOSE: CT Rad equipment meets quality standard of care and radiation dose reduction techniq ues were employed. CTDIvol: 55.2 mGy. DLP: 1056 mGy-cm. mGy. LIMITATIONS: None. FINDINGS: VENTRICLES: Prominent. CEREBRUM: No masses. No hemorrhage. No midline shift. No evidence for acute infarction. Normal gra y/white matter differentiation. No areas of low density in the white matter. CEREBELLUM: No masses. No hemorrhage. No alteration of density. No evidence for acute infarction. EXTRAAXIAL SPACES: No fluid collections. No masses. ORBITS AND GLOBE: No intra- or extraconal masses. Normal contour of globe without masses. CALVARIUM: No fracture. PARANASAL SINUSES: No fluid or mucosal thickening. SOFT TISSUES: No mass or hematoma. OTHER: No other significant finding. IMPRESSION: NORMAL BRAIN CT WITHOUT CONTRAST. EVIDENCE OF ACUTE STROKE: NO. COMMENT: Quality ID # 436: Final reports with documentation of one or more dose reduction techniques (e.g., Automated exposure control, adjustment of the mA and/or kV according to patient size, use of iterative reconstruction technique) TECHNICAL DOCUMENTATION: JOB ID: [id number] [employer]- All Rights Reserved Reading location - IP/workstation name: [email or web address]
[2019-11-10] MEDS ORDERED: AZTREONAM INJ 1 GM VIAL IV ONE (19:23)
[2019-11-10] MEDS ORDERED: VANCOMYCIN HCL INJ 1000 MG VIAL IV ONE (19:25)
[2019-11-10] MEDS ORDERED: SULFAMETHOX/TRIMETH 800-160 MG/10 ML VIAL IV ONE (19:26)
[2019-11-10 19:47] LABS: ARTERIAL BLOOD BASE EXCESS 1.3 mmol/L; ARTERIAL BLOOD H2CO3 1.43 mmol/L (1.05-1.35); ARTERIAL BLOOD HCO3 27.2 mmol/L (20-24); ARTERIAL BLOOD O2 SATURATION 77.6 % (94-98); ARTERIAL BLOOD PCO2 47.5 mmHg (35-45); ARTERIAL BLOOD PH 7.38 (7.35-7.45); ARTERIAL BLOOD PO2 43.2 mmHg (80-100); ARTERIAL BLOOD TOTAL CO2 28.7 mmol/L (23-27)
[2019-11-10 19:51] LABS: ARTERIAL BLOOD FIO2 2L
[2019-11-10 20:18] LABS: APPEARANCE,URINE SLIGHTLY-CLOUDY; BILIRUBIN,URINE NEGATIVE (NEGATIVE); COLOR,URINE AMBER; GLUCOSE, URINE NEGATIVE (NEGATIVE); KETONES,URINE NEGATIVE (NEGATIVE); PROTEIN,URINE 30 mg/dL (NEGATIVE); URINE SPECIFIC GRAVITY 1.027
[2019-11-10 21:30] LABS: INTERNATIONAL RATION (INR) 1.39; PROTHROMBIN TIME 17.2 SEC (11.4-15.4)
--- NOTE | 2019-11-10 22:10 | ER Document Report ---
ED General - General Chief Complaint: Altered Mental Status Stated Complaint: ALTERED MENTAL STATUS Time Seen by Provider: 11/10/19 17:44 Primary Care Provider: SARTHAK SANCHEZ FNP [Primary Care Provider] - Follow up as needed Mode of Arrival: Ambulatory Information source: Relative TRAVEL OUTSIDE OF THE [place] IN LAST 30 DAYS: No - HPI Notes: Patient is brought in by family for altered mental status. Patient has a history of chronic dementia and is primarily bedridden. Family states that patient has been less responsive over the last 24 to 48 hours. There is been no known fevers or vomiting. No known problems with urine or stool. Patient has not had any significant cough or congestion that they know of. No known trauma. Patient's mental status has been significantly depressed per family. The symptoms have been severe. Nothing makes them better or worse that they know of. There is no known radiation of the symptoms. Patient does not interact to give any history and cannot characterize the symptoms. - Related Data Allergies/Adverse Reactions: Penicillins Allergy (Verified 10/08/19 08:07) Past Medical History - General Information source: Relative - Social History Smoking Status: Former Smoker Frequency of alcohol use: None Drug Abuse: None Family History: Reviewed & Not Pertinent Patient has suicidal ideation: No Patient has homicidal ideation: No - Past Medical History Cardiac Medical History: Reports: Hx Hypertension Renal/ Medical History: Denies: Hx Peritoneal Dialysis Past Surgical History: Reports: Hx Appendectomy - as child Review of Systems - Review of Systems -: Yes ROS unobtainable due to patient's medical condition - Due to patient's altered mental status review of symptoms is not obtainable Physical Exam - Vital signs Vitals: BP 143/105 H 11/10/19 16:57 Interpretation: Other - General General appearance: Appears well, Alert - HEENT Head: Normocephalic, Atraumatic Eyes: Normal Pupils: PERRL Mucous membranes: Dry Pharynx: Normal Neck: Normal - Respiratory Respiratory status: No respiratory distress Chest status: Nontender Breath sounds: Normal Chest palpation: Normal - Cardiovascular Rhythm: Regular Heart sounds: Normal auscultation Murmur: No - Abdominal Inspection: Normal Distension: No distension Bowel sounds: Normal Tenderness: Other - Has a ventral hernia that is minimally tender but easily reducible. There are no signs of incarceration. Organomegaly: No organomegaly - Genitourinary Inspection: Other - Inspection shows some mild erythema otherwise unremarkable - Back Back: Normal, Nontender - Extremities General upper extremity: Normal inspection, Nontender, Normal color General lower extremity: Nontender, Other - Patient has a large abrasion to the left upper lateral thigh. No crepitus or induration is appreciated. No: Joe an's sign - Neurological Cognition: Confused Orientation: Disoriented to person, Disoriented to place, Disoriented to time [place] Coma Scale Eye Opening: To Voice [place] Coma Scale Verbal: Incomprehensible [place] Coma Scale Motor: Obeys Commands [place] Coma Scale Total: 11 - Psychological Associated symptoms: Confused, Uncooperative - Skin Skin Temperature: Warm Skin Moisture: Dry Skin Color: Other - Large abrasion on left thigh -erythema in inguinal area Course - Re-evaluation Re-evalutation: 11/10/19 22:15 Patient is brought in by family due to altered mental status. On arrival patient was significantly obtunded. He was a GCS approximately 8 with a questionable gag reflex. I had a discussion with the family about intubation. Family felt due to his chronic dementia and medical conditions that they would like him to be DNR and would like to not have the patient intubated at this time. Patient was then placed on BiPAP and resuscitated with IV fluids. After receiving the BiPAP and IV fluids patient is significantly more alert now and is responsive to voice and follows commands. Patient's vital signs have been stab le throughout. Initial ABG showed some hypoxia and hypercapnia. This is why the BiPAP was started. It may be that this was a venous gas however patient has had such a significant response to BiPAP that I have continued with it. Patient's initial lactate was elevated, but no infection has been appreciated. Patient has a normal urine, normal chest x-ray, and no evidence of any type of infected wounds or sores. Therefore only 1 dose of empiric antibiotics been given. Patient does have significant dehydration based on his dark urine and elevated creatinine has been given 3 L of fluid. Lactate is better now. Patient could possibly have rhabdo as his urine is very dark but the CPK is not back yet. Fluids would obviously be the treatment of choice for this. I have discussed the case with ICU and with the hospitalist. It is felt the patient will best be treated on the medical floor. I doubt the patient has meningitis but this is not been ruled out yet. Patient has been covered with cultures as well as antibiotics. If this continues to be a concern patient will require interventional radiology to obtain some CSF. I have had discussion about meningitis and all of the above medical problems multiple times with the family. - Vital Signs Vital signs: Temp Pulse Resp BP Pulse Ox 96.9 F L 82 16 108/84 100 11/10/19 20:01 11/10/19 17:15 11/10/19 20:01 11/10/19 19:00 11/10/19 20:01 - Laboratory Result Diagrams: 11/10/19 17:24 11/10/19 17:24 Laboratory results interpreted by me: 11/10/19 11/10/19 11/10/19 17:24 17:24 19:37 WBC 15.0 H RDW 16.6 H Lymph % (Auto) 7.2 L Absolute Neuts (auto) 12.4 H Seg Neutrophils % 83.0 H PT Carbonic Acid 1.43 H ABG pCO2 47.5 H ABG pO2 43.2 L ABG HCO3 27.2 H ABG Total CO2 28.7 H ABG O2 Saturation 77.6 L Chloride 108 H BUN 56 H Creatinine 2.07 H Est GFR ( Amer) 40 L Est GFR (MDRD) Non-Af 33 L POC Glucose AST 294 H Urine Protein Urine Blood Urine Urobilinogen 11/10/19 11/10/19 11/10/19 19:43 19:51 21:07 WBC RDW Lymph % (Auto) Absolute Neuts (auto) Seg Neutrophils % PT 17.2 H Carbonic Acid ABG pCO2 ABG pO2 ABG HCO3 ABG Total CO2 ABG O2 Saturation Chloride BUN Creatinine Est GFR ( Amer) Est GFR (MDRD) Non-Af POC Glucose 134 H AST Urine Protein 30 H Urine Blood MODERATE H Urine Urobilinogen 4.0 H - Diagnostic Test Radiology reviewed: Image reviewed, Reports reviewed - EKG Interpretation by Me EKG shows normal: Sinus rhythm Rate: Normal - 74 Rhythm: NSR [place]/QRS: No: Right axis deviation, Left axis deviation Critical Care Note - Critical Care Note Total time excluding time spent on procedures (mins): 80 Comments: 80 minutes of critical care time were spent on this patient approximately. This was spent doing multiple reassessments. I had multiple discussions with the family. I had multiple discussions with consultants. I reviewed old records. I reviewed x-rays imaging and laboratories. Discharge - Discharge Clinical Impression: Obtunded, DNR (do not resuscitate) discussion, Dehydration Acute renal failure Qualifiers: Acute renal failure type: unspecified Qualified Code(s): N17.9 - Acute kidney failure, unspecified Condition: Critical Disposition: ADMITTED INPATIENT Unit Admitted: Medical Floor Referrals: SARTHAK SANCHEZ FNP [Primary Care Provider] - Follow up as needed
[2019-11-10] MEDS ORDERED: MAGNESIUM HYDROXIDE SUSP 30 ML UDCUP PO PRN (23:30)
[2019-11-10] MEDS ORDERED: MAG HYDROX/AL HYDROX/SIMETH SUSP 30 ML UDCUP PO PRN (23:30)
[2019-11-10] MEDS ORDERED: ONDANSETRON HCL INJ/PF 4 MG/2 ML SDV IV PRN (23:30)
[2019-11-10] MEDS ORDERED: METOPROLOL TARTRATE PF/INJ 5 MG/5 ML SDV IV PRN (23:45)
[2019-11-10] MEDS ORDERED: LORAZEPAM INJ 2 MG/1 ML VIAL IV PRN (23:45)
[2019-11-11] MEDS ORDERED: FAMOTIDINE 20 MG TABLET PO ONE (00:30)
[2019-11-11] MEDS ORDERED: LEVOFLOXACIN 750 MG/D5W RTU 750 MG/150 ML RTUPB IV ONE (01:00)
[2019-11-11] MEDS ORDERED: INFLUENZA QUAD (6MOS+) 2019-20 VAC 0.5 ML SYR IM ONE (01:21)
--- NOTE | 2019-11-11 02:37 | PDOC H&P ---
History of Present Illness Admission Date/PCP: 11/10/2019 22:53 SARY MORRIS Patient complains of: Altered mental status History of Present Illness: KRYSTEN BANDA is a 58 year old male who was brought to the emergency room by his daughters with a 2-day history of altered mental status. The family reports that the patient has become gradually more obtunded over the last 2 days and a rouse there is concern when he was poorly responsive today. He is bedridden and has severe dementia thus rendering him unable to contribute in his medical care. He has been noted by the family to have decreased oral intake over the last 2 days associated with his progressively decreasing mental status. The patient's family denies other associated or accompanying signs and symptoms and have not identified any aggravating or ameliorating factors for his altered mental status. The family denies prior similar episodes. In the emergency room he was found to have hypoxia and hypercapnia responding to BiPAP with marked improvement in his obtunded status. He was noted to be initially hypothermic and had a lactic acid of 5 which dropped to 1.9 with IV fluids. He was noted to have a mild leukocytosis with an abrasion of his left thigh and mild erythema noted in his inguinal region. IV antibiotics were initiated in the emergency room. Patient was subsequently admitted to the hospital for further evaluation and treatment. Past Medical History Past Medical History: Patient has severe dementia and is unable to provide historical input for his past medical history, past surgical history, social history and family medical history. Presented here is the most reliable information obtained from the best available source. Cardiac Medical History: Reports: Hypertension Denies: Coronary Artery Disease, Myocardial Infarction Pulmonary Medical History: Denies: Asthma, Chronic Obstructive Pulmonary Disease (COPD) EENT Medical History: Denies: Cataracts, Ears - Hearing aids Neurological Medical History: Reports: Other - Early onset Alzheimer's dementia Denies: Hemorrhagic CVA, Ischemic CVA Endocrine Medical History: Denies: Diabetes Mellitus Type 1, Diabetes Mellitus Type 2, Hyperthyroidism, Hypothyroidism Renal/ Medical History: Denies: Chronic Kidney Disease, Nephrolithiasis Malignancy Medical History: Reports: None GI Medical History: Reports: Cirrhosis - Alcoholic cirrhosis Denies: Gastroesophageal Reflux Disease, Hepatitis, Peptic Ulcer Disease Musculoskeltal Medical History: Denies: Arthritis, Gout Skin Medical History: Denies: Eczema, Psoriasis Psychiatric Medical History: Reports: Alcohol Dependency, Dementia, Substance Abuse, Tobacco Dependency Traumatic Medical History: Reports: None Hematology: Denies: Anemia, Bleeding Tendencies Infectious Medical History: Reports: None Past Surgical History Past Surgical History: Patient has severe dementia and is unable to provide historical input for his past medical history, past surgical history, social history and family medical history. Presented here is the most reliable information obtained from the best available source. Past Surgical History: Reports: Appendectomy Social History Information Source: Relative, [facility] Records Lives with: Family Smoking Status: Former Smoker Electronic Cigarette use?: No Frequency of Alcohol Use: None - Formerly a very heavy drinker prior to onset of his dementia Hx Recreational Drug Use: No - History of remote substance abuse including phenobarbital. Drugs: None Hx Prescription Drug Abuse: No Past Social History Note: Patient has severe dementia and is unable to provide historical input for his past medical history, past surgical history, social history and family medical history. Presented here is the most reliable information obtained from the best available source. - Advance Directive Resuscitation Status: Do Not Resuscitate Surrogate healthcare decision maker:: Diana Wallis Family History Family History: denies: CAD, DM, Hypertension, Malignancy Family History: Patient has severe dementia and is unable to provide historical input for his past medical history, past surgical history, social history and family medical history. Presented here is the most reliable information obtained from the best available source. Parental Family History Reviewed: Yes Children Family History Reviewed: No Sibling(s) Family History Reviewed.: Yes Medication/Allergy Home Medications: Bupropion HCl [Bupropion Xl] 150 mg PO DAILY 10/08/19 Allergies/Adverse Reactions: Penicillins Allergy (Verified 10/08/19 08:07) Review of Systems ROS unobtainable: Due to mental status Physical Exam Vital Signs: Temp Pulse Resp BP Pulse Ox 96.9 F L 82 16 108/84 100 11/10/19 20:01 11/10/19 17:15 11/10/19 20:01 11/10/19 19:00 11/10/19 20:01 Intake & Output 11/08/19 11/09/19 11/10/19 23:59 23:59 23:59 Intake Total 1999 Balance 1999 General appearance: PRESENT: no acute distress, cooperative, obese Head exam: PRESENT: atraumatic, normocephalic Eye exam: PRESENT: conjunctiva pink. ABSENT: conjunctival injection, scleral icterus Ear exam: PRESENT: normal external ear exam. ABSENT: bleeding, drainage Mouth exam: PRESENT: dry mucosa, neck supple Neck exam: ABSENT: thyromegaly, tracheal deviation Respiratory exam: PRESENT: clear to auscultation jose, symmetrical, unlabored Cardiovascular exam: PRESENT: RRR. ABSENT: clicks, gallop, rubs Pulses: PRESENT: normal radial pulses, normal dorsalis pedis pul Vascular exam: PRESENT: normal capillary refill. ABSENT: pallor GI/Abdominal exam: PRESENT: hernia - Large ventral hernias noted, normal bowel sounds, soft Rectal exam: PRESENT: deferred Gentrourinary exam: PRESENT: erythema - Bilateral inguinal regions with tinea intertrigo. ABSENT: testicular tenderness, urethral discharge Extremities exam: PRESENT: pedal edema, other - Massive lymphedema of the bilateral lower extremities with multiple areas of abrasions Musculoskeletal exam: ABSENT: ambulatory, deformity, dislocation Neurological exam: PRESENT: alert, awake, CN II-XII grossly intact, other - Follows some simple commands. ABSENT: motor sensory deficit Psychiatric exam: PRESENT: appropriate affect, normal mood, other - Confused and disoriented Skin exam: PRESENT: abrasion - Abrasion of the left lateral thigh is noted, dry, rash - Bilateral tinea intertrigo of the inguinal regions, warm. ABSENT: jaundice, urticaria Results Laboratory Results: 11/10/19 17:24 11/10/19 17:24 11/10/19 11/10/19 11/10/19 17:24 17:24 17:24 WBC 15.0 H RBC 5.51 Hgb 17.0 Hct 51.0 MCV 93 MCH 30.9 MCHC 33.4 RDW 16.6 H Plt Count 160 Seg Neutrophils % 83.0 H Carbonic Acid HCO3/H2CO3 Ratio ABG pH ABG pCO2 ABG pO2 ABG HCO3 ABG O2 Saturation ABG Base Excess FiO2 Sodium 143.3 Potassium 4.9 Chloride 108 H Carbon Dioxide 26 Anion Gap 9 BUN 56 H Creatinine 2.07 H Est GFR ( Amer) 40 L Glucose 110 Lactic Acid Cancelled Calcium 9.4 Total Bilirubin 1.2 AST 294 H Alkaline Phosphatase 73 Total Protein 7.1 Albumin 3.6 Urine Color Urine Appearance Urine pH Ur Specific [place] Urine Protein Urine Glucose (UA) Urine Ketones Urine Blood Urine RBC (Auto) 11/10/19 11/10/19 11/10/19 19:37 19:51 21:07 WBC RBC Hgb Hct MCV MCH MCHC RDW Plt Count Seg Neutrophils % Carbonic Acid 1.43 H HCO3/H2CO3 Ratio 19:1 ABG pH 7.38 ABG pCO2 47.5 H ABG pO2 43.2 L ABG HCO3 27.2 H ABG O2 Saturation 77.6 L ABG Base Excess 1.3 FiO2 2L Sodium Potassium Chloride Carbon Dioxide Anion Gap BUN Creatinine Est GFR ( Amer) Glucose Lactic Acid 1.9 Calcium Total Bilirubin AST Alkaline Phosphatase Total Protein Albumin Urine Color HUNG Urine Appearance SLIGHTLY-CLOUDY Urine pH 5.0 Ur Specific [place] 1.027 Urine Protein 30 H Urine Glucose (UA) NEGATIVE Urine Ketones NEGATIVE Urine Blood MODERATE H Urine RBC (Auto) 2 11/10/19 17:24 Troponin I 0.070 Impressions: Chest X-Ray 11/10/19 17:54 IMPRESSION: Limited examination. No evidence of acute cardiopulmonary abnormality. Head CT 11/10/19 17:54 IMPRESSION: NORMAL BRAIN CT WITHOUT CONTRAST. EVIDENCE OF ACUTE STROKE: NO. Assessment and Plan - Diagnosis (1) Acute metabolic encephalopathy Is this a current diagnosis for this admission?: Yes (2) Acute respiratory failure with hypoxia and hypercapnia Is this a current diagnosis for this admission?: Yes (3) Hypothermia Qualifiers: Encounter type: initial encounter Qualified Code(s): T68.XXXA - Hypothermia, initial encounter Is this a current diagnosis for this admission?: Yes (4) Acute nontraumatic kidney injury Is this a current diagnosis for this admission?: Yes (5) Abrasion of left thigh Qualifiers: Encounter type: initial encounter Qualified Code(s): S70.312A - Abrasion, left thigh, initial encounter Is this a current diagnosis for this admission?: Yes (6) Elevated lactic acid level Is this a current diagnosis for this admission?: Yes (7) Alzheimer's dementia without behavioral disturbance Qualifiers: Alzheimer's disease onset: early-onset Qualified Code(s): G30.0 - Alzheimer's disease with early onset; F02.80 - Dementia in other diseases classified elsewhere without behavioral disturbance Is this a current diagnosis for this admission?: Yes (8) Tinea of groin Is this a current diagnosis for this admission?: Yes (9) Lymphedema of both lower extremities Is this a current diagnosis for this admission?: Yes - Plan Summary Summary: The patient is admitted to the medical floor where he will receive routine supportive and symptomatic cares. Patient will be DNR status per family request. Patient received IV fluids and will be maintained on BiPAP as long as needed followed by supplemental oxygen via nasal cannula to maintain adequate O2 saturation. He will receive Ativan 1 mg IV every 4 hours as needed anxiety or restlessness. He will have serial laboratory evaluations of his CBC, metabolic profile, magnesium levels and lactic acid levels as appropriate. - Time Time Spent with patient: 15-24 minutes Medications reviewed and adjusted accordingly: Yes Anticipated discharge: SNF - Inpatient Certification Based on my medical assessment, after consideration of the patient's comorbidities, presenting symptoms, or acuity I expect that the services needed warrant INPATIENT care.: Yes I certify that my determination is in accordance with my understanding of Medicare's requirements for reasonable and necessary INPATIENT services [42 CFR 412.3e].: Yes Medical Necessity: Need Close Monitoring Due to Risk of Patient Decompensation, Need For IV Fluids, Need for Neurological Checks, Need for IV Antibiotics
[2019-11-11] MEDS: HEPARIN SOD (PORCINE) 5,000 UNIT/ML 1 ML VIAL SUBCUT SCH ×3 (05:07→22:02)
[2019-11-11] MEDS: DEXTROSE 5%-LACTATED RINGERS 1,000 ML IV PRN ×2 (05:08→13:56)
[2019-11-11 07:04] LABS: HEMATOCRIT 39.8 % (37.9-51.0); HEMOGLOBIN 13.4 g/dL (13.5-17.0); MEAN CORPUSCULAR HEMOGLOBIN 30.8 pg (27.0-33.4); MEAN CORPUSCULAR HGB CONC 33.7 g/dL (32.0-36.0); MEAN CORPUSCULAR VOLUME 91 fl (80-97); PLATELET COUNT 135 10^3/uL (150-450); RED BLOOD COUNT 4.36 10^6/uL (4.35-5.55); WHITE BLOOD COUNT 14.6 10^3/uL (4.0-10.5)
[2019-11-11 07:28] LABS: ALBUMIN 2.4 g/dL (3.5-5.0); ALKALINE PHOSPHATASE 56 U/L (38-126); ANION GAP 7 (5-19); ASPARTATE AMINO TRANSFERASE 184 U/L (17-59); BILIRUBIN,DIRECT 0.2 mg/dL (0.0-0.4); BILIRUBIN,TOTAL 0.8 mg/dL (0.2-1.3); BLOOD UREA NITROGEN 54 mg/dL (7-20); CALCIUM 8.2 mg/dL (8.4-10.2); CARBON DIOXIDE 27 mmol/L (22-30); CHLORIDE 108 mmol/L (98-107); GLUCOSE 98 mg/dL (75-110); TOTAL PROTEIN 5.4 g/dL (6.3-8.2)
[2019-11-11 07:44] LABS: POTASSIUM 3.6 mmol/L (3.6-5.0)
--- NOTE | 2019-11-11 07:48 | EKG REPORT ---
SEVERITY:- ABNORMAL ECG - SINUS RHYTHM PROBABLE LEFT ATRIAL ABNORMALITY NONSPECIFIC INTRAVENTRICULAR CONDUCTION DELAY : Confirmed by: Laith Joe MD 11-Nov-2019 07:48:15
[2019-11-11] MEDS: FAMOTIDINE 20 MG TABLET PO SCH ×2 (09:50→22:02)
[2019-11-11] MEDS: DOCUSATE SODIUM 100 MG CAPSULE PO SCH ×2 (09:50→17:10)
[2019-11-11] MEDS ORDERED: VANCOMYCIN HCL INJ 1000 MG VIAL IV SCH (10:00)
[2019-11-11] MEDS: NYSTATIN TOPICAL POWDER 15 GM TP SCH ×2 (10:47→17:10)
[2019-11-11] MEDS ORDERED: VANCOMYCIN HCL 750 MG in DEXTROSE 5%-WATER 250 ML IV SCH (11:00)
[2019-11-11] MEDS ORDERED: ONDANSETRON HCL INJ/PF 4 MG/2 ML SDV IV PRN (14:30)
--- NOTE | 2019-11-11 15:22 | RADIOLOGY REPORT (SQ) ---
EXAM DESCRIPTION: MRI HEAD WITHOUT COMPLETED DATE/TIME: 11/11/2019 3:09 pm REASON FOR STUDY: suspected CVA COMPARISON: None. TECHNIQUE: Multiplanar imaging includes non-contrasted T1, T2, FLAIR, and diffusion with ADC map seq uences. Images stored on PACS. LIMITATIONS: None. FINDINGS: ANATOMY: No anomalies. Normal vascular flow voids. Pituitary fossa normal. CSF SPACES: Normal in size and contour. No hemorrhage. CEREBRUM: Sulci and gyri normal in size and contour. Normal white matter signal on FLAIR imaging. No evidence of hemorrhage, mass, or extraaxial fluid collection. POSTERIOR FOSSA: No signal alteration. No hemorrhage. No edema, masses or mass effect. Internal misty tory canals, cerebello-pontine angles, mastoids normal. DIFFUSION IMAGING: Negative for acute or sub-acute infarction. ORBITS: No masses. Globes normal. PARANASAL SINUSES: No fluid levels. Mucosa normal. OTHER: No other significant finding. IMPRESSION: NORMAL MRI OF THE BRAIN WITHOUT INTRAVENOUS GADOLINIUM CONTRAST. EVIDENCE OF ACUTE STROKE: NO. TECHNICAL DOCUMENTATION: JOB ID: [id number] [employer]- All Rights Reserved Reading location - IP/workstation name: [email or web address]
--- NOTE | 2019-11-11 15:29 | RADIOLOGY REPORT (SQ) ---
EXAM DESCRIPTION: HIP LEFT AP/LATERAL COMPLETED DATE/TIME: 11/11/2019 3:16 pm REASON FOR STUDY: fall, possible hip fx COMPARISON: None. NUMBER OF VIEWS: Two views. TECHNIQUE: AP pelvis and additional frog-leg view of the left hip. LIMITATIONS: None. FINDINGS: MINERALIZATION: Normal. LEFT HIP: No fracture or dislocation. No worrisome bone lesions. RIGHT HIP: No fracture or dislocation. No worrisome bone lesions. PUBIS AND ISCHIUM: No fracture. PELVIS: No fracture. SACRUM: No fracture or dislocation. No worrisome bone lesions. LOWER LUMBAR SPINE: No fracture or dislocation. No worrisome bone lesions. Degenerative disc disease . SOFT TISSUES: No findings. OTHER: No other significant finding. IMPRESSION: NEGATIVE STUDY OF THE LEFT HIP AND PELVIS. NO RADIOGRAPHIC EVIDENCE OF ACUTE INJURY. TECHNICAL DOCUMENTATION: JOB ID: [id number] [employer]- All Rights Reserved Reading location - IP/workstation name: [email or web address]
--- NOTE | 2019-11-11 16:44 | PDOC PROGRESS REPORT ---
Subjective Progress Note for:: 11/11/19 Subjective:: Patient is a 58-year-old white male who was admitted for persistent metabolic encephalopathy progressive over 2 days, poor oral intake, and shaking tremors. Patient was brought in by family where he is found to have markedly elevated CPK, acute kidney injury, lactic acidosis. Of note, patient's only home medication is Wellbutrin which is well known to lower seizure threshold which is of particular importance in this patient that has had falls in the past with i ntracranial hemorrhage which likely put him at increased risk for seizures. Wellbutrin was discontinued on admission and he has not had any further seizure or seizure-like activity, significantly improving his mentation back to his baseline dementia per family. Per discussion with daughter, when patient had intracranial hemorrhage at outside hospital it was recommended that he may need AED to be started, however this was never done per family. CT head did not show a acute bleed. Reason For Visit: ACUTE RESPIRATORY FAILURE WITH HYPOXIA AND Physical Exam Vital Signs: Temp Pulse Resp BP Pulse Ox 97.8 F 76 17 107/61 100 11/11/19 15:51 11/11/19 15:51 11/11/19 15:51 11/11/19 15:51 11/11/19 15:51 Intake & Output 11/10/19 11/11/19 11/12/19 06:59 06:59 06:59 Intake Total 2150 1735 Output Total 500 Balance 2150 1235 Weight 109 kg 109 kg General appearance: PRESENT: no acute distress, well-developed, well-nourished Head exam: PRESENT: atraumatic, normocephalic Eye exam: PRESENT: conjunctiva pink Mouth exam: PRESENT: moist Respiratory exam: PRESENT: clear to auscultation jose. ABSENT: rales, rhonchi, wheezes Cardiovascular exam: PRESENT: RRR. ABSENT: diastolic murmur, rubs, systolic murmur GI/Abdominal exam: PRESENT: normal bowel sounds, soft. ABSENT: distended, guarding, mass, organolmegaly, rebound, tenderness Extremities exam: PRESENT: pedal edema, other - Massive severe bilateral lower extremity lymphedema with numerous scabbed wounds Neurological exam: PRESENT: alert, awake, oriented to person, oriented to place, oriented to situation Psychiatric exam: PRESENT: appropriate affect, normal mood Skin exam: PRESENT: dry, intact, warm Results Laboratory Results: 11/11/19 06:07 11/11/19 06:07 11/10/19 11/10/19 11/10/19 17:24 17:24 17:24 WBC 15.0 H RBC 5.51 Hgb 17.0 Hct 51.0 MCV 93 MCH 30.9 MCHC 33.4 RDW 16.6 H Plt Count 160 Seg Neutrophils % 83.0 H Carbonic Acid HCO3/H2CO3 Ratio ABG pH ABG pCO2 ABG pO2 ABG HCO3 ABG O2 Saturation ABG Base Excess FiO2 Sodium 143.3 Potassium 4.9 Chloride 108 H Carbon Dioxide 26 Anion Gap 9 BUN 56 H Creatinine 2.07 H Est GFR ( Amer) 40 L Glucose 110 Lactic Acid Cancelled Calcium 9.4 Magnesium Total Bilirubin 1.2 AST 294 H Alkaline Phosphatase 73 Total Protein 7.1 Albumin 3.6 TSH Urine Color Urine Appearance Urine pH Ur Specific [place] Urine Protein Urine Glucose (UA) Urine Ketones Urine Blood Urine RBC (Auto) 11/10/19 11/10/19 11/10/19 19:37 19:51 21:07 WBC RBC Hgb Hct MCV MCH MCHC RDW Plt Count Seg Neutrophils % Carbonic Acid 1.43 H HCO3/H2CO3 Ratio 19:1 ABG pH 7.38 ABG pCO2 47.5 H ABG pO2 43.2 L ABG HCO3 27.2 H ABG O2 Saturation 77.6 L ABG Base Excess 1.3 FiO2 2L Sodium Potassium Chloride Carbon Dioxide Anion Gap BUN Creatinine Est GFR ( Amer) Glucose Lactic Acid 1.9 Calcium Magnesium Total Bilirubin AST Alkaline Phosphatase Total Protein Albumin TSH Urine Color HUNG Urine Appearance SLIGHTLY-CLOUDY Urine pH 5.0 Ur Specific [place] 1.027 Urine Protein 30 H Urine Glucose (UA) NEGATIVE Urine Ketones NEGATIVE Urine Blood MODERATE H Urine RBC (Auto) 2 11/11/19 11/11/19 11/11/19 00:27 06:07 06:07 WBC 14.6 H RBC 4.36 Hgb 13.4 L D Hct 39.8 MCV 91 MCH 30.8 MCHC 33.7 RDW 16.0 H Plt Count 135 L Seg Neutrophils % Carbonic Acid HCO3/H2CO3 Ratio ABG pH ABG pCO2 ABG pO2 ABG HCO3 ABG O2 Saturation ABG Base Excess FiO2 Sodium 142.0 Potassium 3.6 D Chloride 108 H Carbon Dioxide 27 Anion Gap 7 BUN 54 H Creatinine 1.89 H Est GFR ( Amer) 45 L Glucose 98 Lactic Acid 1.8 Calcium 8.2 L Magnesium 2.2 Total Bilirubin 0.8 AST 184 H Alkaline Phosphatase 56 Total Protein 5.4 L Albumin 2.4 L TSH Urine Color Urine Appearance Urine pH Ur Specific [place] Urine Protein Urine Glucose (UA) Urine Ketones Urine Blood Urine RBC (Auto) 11/11/19 06:07 WBC RBC Hgb Hct MCV MCH MCHC RDW Plt Count Seg Neutrophils % Carbonic Acid HCO3/H2CO3 Ratio ABG pH ABG pCO2 ABG pO2 ABG HCO3 ABG O2 Saturation ABG Base Excess FiO2 Sodium Potassium Chloride Carbon Dioxide Anion Gap BUN Creatinine Est GFR ( Amer) Glucose Lactic Acid Calcium Magnesium Total Bilirubin AST Alkaline Phosphatase Total Protein Albumin TSH 2.55 Urine Color Urine Appearance Urine pH Ur Specific [place] Urine Protein Urine Glucose (UA) Urine Ketones Urine Blood Urine RBC (Auto) 11/10/19 11/10/19 11/11/19 17:24 17:24 09:47 Creatine Kinase 5644 H 1323 H Troponin I 0.070 Impressions: Chest X-Ray 11/10/19 17:54 IMPRESSION: Limited examination. No evidence of acute cardiopulmonary abnormality. Head CT 11/10/19 17:54 IMPRESSION: NORMAL BRAIN CT WITHOUT CONTRAST. EVIDENCE OF ACUTE STROKE: NO. Head MRI 11/11/19 00:00 IMPRESSION: NORMAL MRI OF THE BRAIN WITHOUT INTRAVENOUS GADOLINIUM CONTRAST. EVIDENCE OF ACUTE STROKE: NO. Hip X-Ray 11/11/19 00:00 IMPRESSION: NEGATIVE STUDY OF THE LEFT HIP AND PELVIS. NO RADIOGRAPHIC EVIDENCE OF ACUTE INJURY. Assessment and Plan - Diagnosis (1) Seizure-like activity Is this a current diagnosis for this admission?: Yes Plan: Highly suspect the patient had isolated seizure activity precipitated by Wellbutrin and poor p.o. intake Stop Wellbutrin, this will not be restarted No indication for AED at this time unless he has further seizure activity despite stopping offending medication No indication for EEG as patient has returned to baseline mentation per family; does need to follow-up with his outpatient neurologist in [place] whom he has an appointment with in November CT head negative for bleed MRI brain negative for any acute findings (2) Lactic acidosis Is this a current diagnosis for this admission?: Yes Plan: Likely secondary to seizure activity Resolved/resolving IV fluids (3) Rhabdomyolysis Is this a current diagnosis for this admission?: Yes Plan: Likely due to seizure activity Trending CPK down IV fluids Trend BMP (4) SHELBIE (acute kidney injury) Is this a current diagnosis for this admission?: Yes Plan: Likely due to dehydration and rhabdomyolysis CPK trending down IV fluids continued Trend BMP (5) Acute metabolic encephalopathy Is this a current diagnosis for this admission?: Yes Plan: Resolving/resolved to baseline mentation which is severe dementia per family Brain imaging reviewed as above (6) Alzheimer's dementia without behavioral disturbance Qualifiers: Alzheimer's disease onset: early-onset Qualified Code(s): G30.0 - Alzheimer's disease with early onset; F02.80 - Dementia in other diseases classified elsewhere without behavioral disturbance Is this a current diagnosis for this admission?: Yes (7) Lymphedema of both lower extremities Is this a current diagnosis for this admission?: Yes Plan: Must have follow-up with wound clinic - Plan Summary Summary: The patient is admitted to the medical floor where he will receive routine supportive and symptomatic cares. Patient will be DNR status per family request. Patient received IV fluids and will be maintained on BiPAP as long as needed followed by supplemental oxygen via nasal cannula to maintain adequate O2 saturation. He will receive Ativan 1 mg IV every 4 hours as needed anxiety or restlessness. He will have serial laboratory evaluations of his CBC, metabolic profile, magnesium levels and lactic acid levels as appropriate. - Time Time Spent with patient: 35 or more minutes Anticipated discharge: Home with Homehealth Within: within 72 hours - Inpatient Certification Medical Necessity: Significant Comorbidiites Make Outpatient Treatment Too Risky, Need Close Monitoring Due to Risk of Patient Decompensation, Need For IV Fluids, Need for IV Antibiotics
[2019-11-11] MEDS: RINGERS SOLUTION,LACTATED 1,000 ML IV PRN (17:11)
[2019-11-12 05:14] LABS: HEMATOCRIT 36.4 % (37.9-51.0); HEMOGLOBIN 12.5 g/dL (13.5-17.0); MEAN CORPUSCULAR HGB CONC 34.3 g/dL (32.0-36.0); MEAN CORPUSCULAR VOLUME 91 fl (80-97); PLATELET COUNT 120 10^3/uL (150-450); RED BLOOD COUNT 4.02 10^6/uL (4.35-5.55); WHITE BLOOD COUNT 9.9 10^3/uL (4.0-10.5)
[2019-11-12] MEDS: HEPARIN SOD (PORCINE) 5,000 UNIT/ML 1 ML VIAL SUBCUT SCH ×3 (06:09→21:39)
[2019-11-12] MEDS: RINGERS SOLUTION,LACTATED 1,000 ML IV PRN ×2 (06:09→20:28)
[2019-11-12] MEDS ORDERED: LEVOFLOXACIN 750 MG/D5W RTU 750 MG/150 ML RTUPB IV SCH (08:00)
[2019-11-12] MEDS: DOCUSATE SODIUM 100 MG CAPSULE PO SCH ×2 (10:03→17:22)
[2019-11-12] MEDS: FAMOTIDINE 20 MG TABLET PO SCH ×2 (10:04→21:37)
[2019-11-12] MEDS: NYSTATIN TOPICAL POWDER 15 GM TP SCH ×2 (11:58→17:22)
--- NOTE | 2019-11-12 18:06 | PDOC PROGRESS REPORT ---
Subjective Progress Note for:: 11/12/19 Subjective:: Patient is a 58-year-old white male who was admitted for persistent metabolic encephalopathy progressive over 2 days, poor oral intake, and shaking tremors. Patient was brought in by family where he is found to have markedly elevated CPK, acute kidney injury, lactic acidosis. Of note, patient's only home medication is Wellbutrin which is well known to lower seizure threshold which is of particular importance in this patient that has had falls in the past with i ntracranial hemorrhage which likely put him at increased risk for seizures. Wellbutrin was discontinued on admission and he has not had any further seizure or seizure-like activity, significantly improving his mentation back to his baseline dementia per family. Per discussion with daughter, when patient had intracranial hemorrhage at outside hospital it was recommended that he may need AED to be started, however this was never done per family. CT head did not show a acute bleed. 11/12: Patient with significant improvement in mentation, ability to feed self, memory. Likely approaching baseline now. He has no signs or symptoms of any acute infection. His lab abnormalities are resolved/resolving off of antibiotics and this is consistent with the notion he had a seizure rather than infectious etiology. No new complaints today. Reason For Visit: ACUTE RESPIRATORY FAILURE WITH HYPOXIA AND Physical Exam Vital Signs: Temp Pulse Resp BP Pulse Ox 97.8 F 65 17 107/59 L 97 11/12/19 16:10 11/12/19 16:10 11/12/19 16:10 11/12/19 16:10 11/12/19 16:10 Intake & Output 11/11/19 11/12/19 11/13/19 06:59 06:59 06:59 Intake Total 2150 3488 240 Output Total 1400 1000 Balance 2150 2088 -760 Weight 109 kg 111.9 kg General appearance: PRESENT: no acute distress, well-developed, well-nourished Head exam: PRESENT: atraumatic, normocephalic Eye exam: PRESENT: conjunctiva pink Mouth exam: PRESENT: moist Respiratory exam: PRESENT: clear to auscultation jose. ABSENT: rales, rhonchi, wheezes Cardiovascular exam: PRESENT: RRR. ABSENT: diastolic murmur, rubs, systolic murmur GI/Abdominal exam: PRESENT: normal bowel sounds, soft. ABSENT: distended, guarding, mass, organolmegaly, rebound, tenderness Extremities exam: PRESENT: +2 edema - Chronic severe lymphedema unchanged Neurological exam: PRESENT: alert, awake, oriented to person Psychiatric exam: PRESENT: appropriate affect, normal mood Skin exam: PRESENT: dry, intact, warm Results Laboratory Results: 11/12/19 04:37 11/12/19 10:52 11/12/19 11/12/19 11/12/19 04:37 04:37 10:52 WBC 9.9 RBC 4.02 L Hgb 12.5 L Hct 36.4 L MCV 91 MCH 31.0 MCHC 34.3 RDW 16.0 H Plt Count 120 L Creatinine 1.26 H Est GFR ( Amer) > 60 Magnesium 2.1 11/10/19 11/10/19 11/11/19 17:24 17:24 09:47 Creatine Kinase 5644 H 1323 H Troponin I 0.070 11/11/19 22:14 Creatine Kinase 956 H Troponin I Impressions: Chest X-Ray 11/10/19 17:54 IMPRESSION: Limited examination. No evidence of acute cardiopulmonary abnormality. Head CT 11/10/19 17:54 IMPRESSION: NORMAL BRAIN CT WITHOUT CONTRAST. EVIDENCE OF ACUTE STROKE: NO. Head MRI 11/11/19 00:00 IMPRESSION: NORMAL MRI OF THE BRAIN WITHOUT INTRAVENOUS GADOLINIUM CONTRAST. EVIDENCE OF ACUTE STROKE: NO. Hip X-Ray 11/11/19 00:00 IMPRESSION: NEGATIVE STUDY OF THE LEFT HIP AND PELVIS. NO RADIOGRAPHIC EVIDENCE OF ACUTE INJURY. Assessment and Plan - Diagnosis (1) Seizure-like activity Is this a current diagnosis for this admission?: Yes Plan: Highly suspect the patient had isolated seizure activity precipitated by Wellbutrin and poor p.o. intake Stop Wellbutrin, this will not be restarted No indication for AED at this time unless he has further seizure activity despite stopping offending medication No indication for EEG as patient has returned to baseline mentation per family; does need to follow-up with his outpatient neurologist in [place] whom he has an appointment with in November CT head negative for bleed MRI brain negative for any acute findings No further seizure activity since admission, lactate back to normal, WBC normal, afebrile, mentation back at baseline (2) Lactic acidosis Is this a current diagnosis for this admission?: Yes Plan: Likely secondary to seizure activity Resolved IV fluids (3) Rhabdomyolysis Is this a current diagnosis for this admission?: Yes Plan: Likely due to seizure activity Trending CPK, resolved IV fluids Trend BMP (4) SHELBIE (acute kidney injury) Is this a current diagnosis for this admission?: Yes Plan: Likely due to dehydration and rhabdomyolysis CPK trending down IV fluids continued Trend BMP Near/at baseline creatinine (5) Acute metabolic encephalopathy Is this a current diagnosis for this admission?: Yes (6) Alzheimer's dementia without behavioral disturbance Qualifiers: Alzheimer's disease onset: early-onset Qualified Code(s): G30.0 - Alzheimer's disease with early onset; F02.80 - Dementia in other diseases classified elsewhere without behavioral disturbance Is this a current diagnosis for this admission?: Yes (7) Lymphedema of both lower extremities Is this a current diagnosis for this admission?: Yes - Plan Summary Summary: The patient is admitted to the medical floor where he will receive routine supportive and symptomatic cares. Patient will be DNR status per family request . Patient received IV fluids and will be maintained on BiPAP as long as needed followed by supplemental oxygen via nasal cannula to maintain adequate O2 saturation. He will receive Ativan 1 mg IV every 4 hours as needed anxiety or restlessness. He will have serial laboratory evaluations of his CBC, metabolic profile, magnesium levels and lactic acid levels as appropriate. - Time Time Spent with patient: 15-24 minutes Anticipated discharge: Home with Homehealth Within: within 24 hours - Inpatient Certification Medical Necessity: Significant Comorbidiites Make Outpatient Treatment Too Risky, Need Close Monitoring Due to Risk of Patient Decompensation
[2019-11-13] MEDS: HEPARIN SOD (PORCINE) 5,000 UNIT/ML 1 ML VIAL SUBCUT SCH ×4 (05:10→21:04)
[2019-11-13 07:07] LABS: HEMATOCRIT 37.2 % (37.9-51.0); HEMOGLOBIN 12.8 g/dL (13.5-17.0); MEAN CORPUSCULAR HEMOGLOBIN 31.3 pg (27.0-33.4); MEAN CORPUSCULAR HGB CONC 34.3 g/dL (32.0-36.0); MEAN CORPUSCULAR VOLUME 91 fl (80-97); PLATELET COUNT 102 10^3/uL (150-450); RED BLOOD COUNT 4.08 10^6/uL (4.35-5.55); RED CELL DISTRIBUTION WIDTH 15.6 % (11.5-14.0); WHITE BLOOD COUNT 7.3 10^3/uL (4.0-10.5)
[2019-11-13] MEDS: DOCUSATE SODIUM 100 MG CAPSULE PO SCH ×2 (10:30→18:10)
[2019-11-13] MEDS: NYSTATIN TOPICAL POWDER 15 GM TP SCH ×2 (10:30→18:11)
[2019-11-13] MEDS: FAMOTIDINE 20 MG TABLET PO SCH ×2 (10:30→21:04)
[2019-11-13] MEDS: RINGERS SOLUTION,LACTATED 1,000 ML IV PRN ×2 (10:33→23:19)
--- NOTE | 2019-11-13 17:57 | PDOC PROGRESS REPORT ---
Subjective Progress Note for:: 11/13/19 Subjective:: Patient is a 58-year-old white male who was admitted for persistent metabolic encephalopathy progressive over 2 days, poor oral intake, and shaking tremors. Patient was brought in by family where he is found to have markedly elevated CPK, acute kidney injury, lactic acidosis. Of note, patient's only home medication is Wellbutrin which is well known to lower seizure threshold which is of particular importance in this patient that has had falls in the past with i ntracranial hemorrhage which likely put him at increased risk for seizures. Wellbutrin was discontinued on admission and he has not had any further seizure or seizure-like activity, significantly improving his mentation back to his baseline dementia per family. Per discussion with daughter, when patient had intracranial hemorrhage at outside hospital it was recommended that he may need AED to be started, however this was never done per family. CT head did not show a acute bleed. 11/12: Patient with significant improvement in mentation, ability to feed self, memory. Likely approaching baseline now. He has no signs or symptoms of any acute infection. His lab abnormalities are resolved/resolving off of antibiotics and this is consistent with the notion he had a seizure rather than infectious etiology. No new complaints today. 11/13: I suspect that the patient's family has not been completely honest with us about his activity prior to admission. Unfortunately, they may have brought patient to hospital with the intention of arranging other care for him in addition to his altered mental status when he got here. I highly suspect that patient has not been ambulatory for weeks or even months based on the pressure ulcers present on admission reported to me by nursing and his overall severe weakness and debility, clearly unable to walk. Disposition changed to SNF. Will need social work to arrange a bed for him. Otherwise, patient is doing quite well mentation at baseline, eating and drinking. Reason For Visit: ACUTE RESPIRATORY FAILURE WITH HYPOXIA AND Physical Exam Vital Signs: Temp Pulse Resp BP Pulse Ox 97.9 F 71 18 110/60 100 11/13/19 15:00 11/13/19 15:00 11/13/19 15:00 11/13/19 15:00 11/13/19 15:00 Intake & Output 11/12/19 11/13/19 11/14/19 06:59 06:59 06:59 Intake Total 3488 2970 1390 Output Total 1400 3825 950 Balance 2088 -219 440 Weight 111.9 kg 111.9 kg General appearance: PRESENT: no acute distress, cooperative, well-developed, well-nourished Head exam: PRESENT: atraumatic, normocephalic Eye exam: PRESENT: conjunctiva pink Mouth exam: PRESENT: moist Respiratory exam: PRESENT: clear to auscultation jose. ABSENT: rales, rhonchi, wheezes Cardiovascular exam: PRESENT: RRR. ABSENT: diastolic murmur, rubs, systolic murmur GI/Abdominal exam: PRESENT: normal bowel sounds, soft. ABSENT: distended, guarding, mass, organolmegaly, rebound, tenderness Extremities exam: PRESENT: pedal edema, +2 edema - Chronic severe lymphedema unchanged Neurological exam: PRESENT: alert, awake Psychiatric exam: PRESENT: appropriate affect, normal mood Skin exam: PRESENT: dry, warm, other - Chronic appearing pressure ulcers on sacrum/shoulder/posterior legs of various stages present on admission Results Laboratory Results: 11/13/19 05:34 11/12/19 10:52 11/13/19 11/13/19 05:34 05:34 WBC 7.3 RBC 4.08 L Hgb 12.8 L Hct 37.2 L MCV 91 MCH 31.3 MCHC 34.3 RDW 15.6 H Plt Count 102 L Magnesium 2.1 11/10/19 11/10/19 11/11/19 17:24 17:24 09:47 Creatine Kinase 5644 H 1323 H Troponin I 0.070 11/11/19 22:14 Creatine Kinase 956 H Troponin I Impressions: Chest X-Ray 11/10/19 17:54 IMPRESSION: Limited examination. No evidence of acute cardiopulmonary abnormality. Head CT 11/10/19 17:54 IMPRESSION: NORMAL BRAIN CT WITHOUT CONTRAST. EVIDENCE OF ACUTE STROKE: NO. Head MRI 11/11/19 00:00 IMPRESSION: NORMAL MRI OF THE BRAIN WITHOUT INTRAVENOUS GADOLINIUM CONTRAST. EVIDENCE OF ACUTE STROKE: NO. Hip X-Ray 11/11/19 00:00 IMPRESSION: NEGATIVE STUDY OF THE LEFT HIP AND PELVIS. NO RADIOGRAPHIC EVIDENCE OF ACUTE INJURY. Assessment and Plan - Diagnosis (1) Seizure-like activity Is this a current diagnosis for this admission?: Yes Plan: Highly suspect the patient had isolated seizure activity precipitated by Wellbutrin and poor p.o. intake Stop Wellbutrin, this will not be restarted No indication for AED at this time unless he has further seizure activity despite stopping offending medication No indication for EEG as patient has returned to baseline mentation per family; does need to follow-up with his outpatient neurologist in [place] whom he has an appointment with in November CT head negative for bleed MRI brain negative for any acute findings No further seizure activity since admission, lactate back to normal, WBC normal, afebrile, mentation back at baseline Resolved (2) Lactic acidosis Is this a current diagnosis for this admission?: Yes Plan: Likely secondary to seizure activity Resolved IV fluids (3) Rhabdomyolysis Is this a current diagnosis for this admission?: Yes (4) SHELBIE (acute kidney injury) Is this a current diagnosis for this admission?: Yes (5) Acute metabolic encephalopathy Is this a current diagnosis for this admission?: Yes (6) Alzheimer's dementia without behavioral disturbance Qualifiers: Alzheimer's disease onset: early-onset Qualified Code(s): G30.0 - Alzheimer's disease with early onset; F02.80 - Dementia in other diseases classified elsewhere without behavioral disturbance Is this a current diagnosis for this admission?: Yes (7) Lymphedema of both lower extremities Is this a current diagnosis for this admission?: Yes Plan: Must have follow-up with wound clinic PT/OT consulted: Recommended SNF Patient has severe longstanding debility and disability; suspect he has not walked in a very long time given the pressure ulcers he came in the hospital with on admission (8) Pressure ulcer Qualifiers: Pressure injury location: sacral region Pressure injury stage: stage 1 Qualified Code(s): L89.151 - Pressure ulcer of sacral region, stage 1 Is this a current diagnosis for this admission?: Yes Plan: Multiple pressure ulcers: Left shoulder, posterior calves, sacrum Stage I-II per nursing Wound care dressings Present on admission - Plan Summary Summary: The patient is admitted to the medical floor where he will receive routine supportive and symptomatic cares. Patient will be DNR status per family request. Patient received IV fluids and will be maintained on BiPAP as long as needed followed by supplemental oxygen via nasal cannula to maintain adequate O2 saturation. He will receive Ativan 1 mg IV every 4 hours as needed anxiety or restlessness. He will have serial laboratory evaluations of his CBC, metabolic profile, magnesium levels and lactic acid levels as appropriate. - Time Time Spent with patient: 15-24 minutes Medications reviewed and adjusted accordingly: Yes Anticipated discharge: SNF Within: within 48 hours - Inpatient Certification Medical Necessity: Need Close Monitoring Due to Risk of Patient Decompensation
[2019-11-14] MEDS: HEPARIN SOD (PORCINE) 5,000 UNIT/ML 1 ML VIAL SUBCUT SCH ×3 (05:12→21:34)
[2019-11-14] MEDS: NYSTATIN TOPICAL POWDER 15 GM TP SCH ×2 (09:27→17:15)
[2019-11-14] MEDS: DOCUSATE SODIUM 100 MG CAPSULE PO SCH ×2 (09:27→17:15)
[2019-11-14] MEDS: FAMOTIDINE 20 MG TABLET PO SCH ×2 (09:27→21:36)
[2019-11-14] MEDS: RINGERS SOLUTION,LACTATED 1,000 ML IV PRN (14:58)
--- NOTE | 2019-11-14 15:11 | PDOC PROGRESS REPORT ---
Subjective Progress Note for:: 11/14/19 Subjective:: Patient is a 58-year-old white male who was admitted for persistent metabolic encephalopathy progressive over 2 days, poor oral intake, and shaking tremors. Patient was brought in by family where he is found to have markedly elevated CPK, acute kidney injury, lactic acidosis. Of note, patient's only home medication is Wellbutrin which is well known to lower seizure threshold which is of particular importance in this patient that has had falls in the past with i ntracranial hemorrhage which likely put him at increased risk for seizures. Wellbutrin was discontinued on admission and he has not had any further seizure or seizure-like activity, significantly improving his mentation back to his baseline dementia per family. Per discussion with daughter, when patient had intracranial hemorrhage at outside hospital it was recommended that he may need AED to be started, however this was never done per family. CT head did not show a acute bleed. 11/12: Patient with significant improvement in mentation, ability to feed self, memory. Likely approaching baseline now. He has no signs or symptoms of any acute infection. His lab abnormalities are resolved/resolving off of antibiotics and this is consistent with the notion he had a seizure rather than infectious etiology. No new complaints today. 11/13: I suspect that the patient's family has not been completely honest with us about his activity prior to admission. Unfortunately, they may have brought patient to hospital with the intention of arranging other care for him in addition to his altered mental status when he got here. I highly suspect that patient has not been ambulatory for weeks or even months based on the pressure ulcers present on admission reported to me by nursing and his overall severe weakness and debility, clearly unable to walk. Disposition changed to SNF. Will need social work to arrange a bed for him. Otherwise, patient is doing quite well mentation at baseline, eating and drinking. 11/14: Patient is mentating very well, appears to be at baseline mentation. Due to his chronic memory problems, he is unclear about if and when he ambulates at home. He does state that he spends nearly all of his time in bed on his back after asking him in multiple different ways. He has no new complaints. We await a SNF bed. Reason For Visit: ACUTE RESPIRATORY FAILURE WITH HYPOXIA AND Physical Exam Vital Signs: Temp Pulse Resp BP Pulse Ox 98.1 F 87 20 100/73 99 11/14/19 11:19 11/14/19 11:19 11/14/19 11:19 11/14/19 11:19 11/14/19 11:19 Intake & Output 11/13/19 11/14/19 11/15/19 06:59 06:59 06:59 Intake Total 2970 3570 1240 Output Total 3825 3575 1500 Balance -855 -5 -260 Weight 111.9 kg 122.3 kg General appearance: PRESENT: no acute distress, well-developed, well-nourished Head exam: PRESENT: atraumatic, normocephalic Eye exam: PRESENT: conjunctiva pink Mouth exam: PRESENT: moist Respiratory exam: PRESENT: clear to auscultation jose. ABSENT: rales, rhonchi, wheezes Cardiovascular exam: PRESENT: RRR. ABSENT: diastolic murmur, rubs, systolic murmur GI/Abdominal exam: PRESENT: normal bowel sounds, soft. ABSENT: distended, guarding, mass, organolmegaly, rebound, tenderness Extremities exam: PRESENT: +2 edema - Chronic bilateral lymphedema lower extremities Neurological exam: PRESENT: alert, awake, oriented to person Psychiatric exam: PRESENT: appropriate affect, normal mood Skin exam: PRESENT: dry, warm, other - Various decubitus ulcers unstageable and I-II as previously mentioned, present on admission Results Laboratory Results: 11/13/19 05:34 11/12/19 10:52 11/10/19 11/10/19 11/11/19 17:24 17:24 09:47 Creatine Kinase 5644 H 1323 H Troponin I 0.070 11/11/19 22:14 Creatine Kinase 956 H Troponin I Impressions: Chest X-Ray 11/10/19 17:54 IMPRESSION: Limited examination. No evidence of acute cardiopulmonary abnormality. Head CT 11/10/19 17:54 IMPRESSION: NORMAL BRAIN CT WITHOUT CONTRAST. EVIDENCE OF ACUTE STROKE: NO. Head MRI 11/11/19 00:00 IMPRESSION: NORMAL MRI OF THE BRAIN WITHOUT INTRAVENOUS GADOLINIUM CONTRAST. EVIDENCE OF ACUTE STROKE: NO. Hip X-Ray 11/11/19 00:00 IMPRESSION: NEGATIVE STUDY OF THE LEFT HIP AND PELVIS. NO RADIOGRAPHIC EVIDENCE OF ACUTE INJURY. Assessment and Plan - Diagnosis (1) Seizure-like activity Is this a current diagnosis for this admission?: Yes (2) Lactic acidosis Is this a current diagnosis for this admission?: Yes (3) Rhabdomyolysis Is this a current diagnosis for this admission?: Yes Plan: Likely due to seizure activity Trending CPK, resolved IV fluids Trend BMP Needs SNF placement for rehab (4) SHELBIE (acute kidney injury) Is this a current diagnosis for this admission?: Yes (5) Acute metabolic encephalopathy Is this a current diagnosis for this admission?: Yes (6) Alzheimer's dementia without behavioral disturbance Qualifiers: Alzheimer's disease onset: early-onset Qualified Code(s): G30.0 - Alzheimer's disease with early onset; F02.80 - Dementia in other diseases classified elsewhere without behavioral disturbance Is this a current diagnosis for this admission?: Yes (7) Lymphedema of both lower extremities Is this a current diagnosis for this admission?: Yes (8) Pressure ulcer Qualifiers: Pressure injury location: sacral region Pressure injury stage: stage 1 Qualified Code(s): L89.151 - Pressure ulcer of sacral region, stage 1 Is this a current diagnosis for this admission?: Yes - Plan Summary Summary: The patient is admitted to the medical floor where he will receive routine supp ortive and symptomatic cares. Patient will be DNR status per family request. Patient received IV fluids and will be maintained on BiPAP as long as needed followed by supplemental oxygen via nasal cannula to maintain adequate O2 saturation. He will receive Ativan 1 mg IV every 4 hours as needed anxiety or restlessness. He will have serial laboratory evaluations of his CBC, metabolic profile, magnesium levels and lactic acid levels as appropriate. - Time Time Spent with patient: 15-24 minutes Medications reviewed and adjusted accordingly: Yes Anticipated discharge: SNF Within: within 48 hours - Inpatient Certification Medical Necessity: Risk of Complication if Not Cared For in Hospital
[2019-11-14] MEDS ORDERED: TRAZODONE HCL 50 MG TABLET PO PRN (20:31)
[2019-11-15] MEDS: HEPARIN SOD (PORCINE) 5,000 UNIT/ML 1 ML VIAL SUBCUT SCH ×3 (05:20→22:00)
[2019-11-15] MEDS: NYSTATIN TOPICAL POWDER 15 GM TP SCH ×2 (09:55→17:25)
[2019-11-15] MEDS: DOCUSATE SODIUM 100 MG CAPSULE PO SCH ×2 (10:48→17:24)
[2019-11-15] MEDS: FAMOTIDINE 20 MG TABLET PO SCH ×2 (10:48→22:04)
--- NOTE | 2019-11-15 14:35 | PDOC DISCHARGE SUMMARY ---
Impression - Admit/DC Date/PCP Admission Date/Primary Care Provider: 11/10/19 23:04 SARY MORRIS Discharge Date: 11/13/19 - Additional Information Resuscitation Status: Do Not Resuscitate Discharge Activity: Activity As Tolerated Referrals: SARTHAK SANCHEZ FNP [Primary Care Provider] - (A voice mail was left with Harper at the [facility] Medicine office to contact you to arrange follow-up care.) History of Present Illiness History of Present Illness: Per H&P by Dr. Posey: KRYSTEN BANDA is a 58 year old male who was brought to the emergency room by his daughters with a 2-day history of altered mental status. The family reports that the patient has become gradually more obtunded over the last 2 days and arouse there is concern when he was poorly responsive today. He is bedridden and has severe dementia thus rendering him unable to contribute in his medical care. He has been noted by the family to have decreased oral intake over the last 2 days associated with his progressively decreasing mental status. The patient's family denies other associated or accompanying signs and symptoms and have not identified any aggravating or ameliorating factors for his altered mental status. The family denies prior similar episodes. In the emergency room he was found to have hypoxia and hypercapnia responding to BiPAP with marked improvement in his obtunded status. He was noted to be initially hypothermic and had a lactic acid of 5 which dropped to 1.9 with IV fluids. He was noted to have a mild leukocytosis with an abrasion of his left thigh and mild erythema noted in his inguinal region. IV antibiotics were initiated in the emergency room. Patient was subsequently admitted to the hospital for further evaluation and treatment. Hospital Course Hospital Course: The patient was admitted to the medical floor and supported with supplemental oxygen and BiPAP as needed. He was provided IV fluids for correction of his dehydration and resultant SHELBIE. The patient did experience seizure-like activity; likely due to dehydration and Wellbutrin. He subsequently developed mild rhabdomyolysis. As his SHELBIE improved and rhabdomyolysis resolved, his mentation returned to his baseline. Due to seizure activity prior to admission, the patient's Wellbutrin was discontinued. There was no indication for starting AEDs as he had no further seizure activity upon stopping the offending medication. Further evaluation of his acute metabolic encephalopathy and seizure was unremarkable with a normal head CT and MRI. EEG was considered but not obtained as the patient rapidly returned to his baseline. The patient has significant bilateral lymphedema; should follow-up with the wound care clinic. He was also admitted with multiple pressure ulcers to his left shoulder, posterior calves, and sacrum suggesting that the patient has not been ambulatory for a significant amount of time. His other chronic medical conditions have remained stable. At this time, the patient has no ongoing acute medical issues, has returned to his baseline mentation, and is stable for discharge to home in the care of family members. He is advised to follow up with his primary care provider within 1 week. Strongly advised patient and family members to continue seeking assistance through certified social workers in health care and obtaining increased healthcare coverage. Patient would benefit from ultimately transitioning to a long-term care setting. He should take medications as prescribed and return to the emergency department as needed for concerning symptoms. Physical Exam Vital Signs: Temp Pulse Resp BP Pulse Ox 97.6 F 75 17 119/62 99 11/15/19 12:00 11/15/19 12:00 11/15/19 12:00 11/15/19 12:00 11/15/19 12:00 Intake & Output 11/14/19 11/15/19 11/16/19 06:59 06:59 06:59 Intake Total 3570 1840 476 Output Total 3575 5050 325 Balance -5 -3210 151 Weight 122.3 kg 117.8 kg General appearance: PRESENT: no acute distress, well-developed, well-nourished Head exam: PRESENT: atraumatic, normocephalic Eye exam: PRESENT: conjunctiva pink, EOMI, PERRLA. ABSENT: scleral icterus Ear exam: PRESENT: normal external ear exam Mouth exam: PRESENT: moist, tongue midline Respiratory exam: PRESENT: clear to auscultation jose, symmetrical, unlabored, other - room air. ABSENT: rales, rhonchi, wheezes Cardiovascular exam: PRESENT: RRR, +S1, +S2. ABSENT: diastolic murmur, rubs, systolic murmur Pulses: PRESENT: normal dorsalis pedis pul Vascular exam: PRESENT: normal capillary refill GI/Abdominal exam: PRESENT: normal bowel sounds, soft. ABSENT: distended, guarding, mass, organolmegaly, rebound, tenderness Rectal exam: PRESENT: deferred Extremities exam: PRESENT: full ROM, +2 edema - Chronic bilateral lymphedema lower extremities. ABSENT: calf tenderness, clubbing, pedal edema Neurological exam: PRESENT: alert, awake, oriented to person, CN II-XII grossly intact, other - Answers all questions, "yeah." At baseline mentation per family.. ABSENT: motor sensory deficit Psychiatric exam: PRESENT: appropriate affect, normal mood. ABSENT: homicidal ideation, suicidal ideation Skin exam: PRESENT: dry, warm, other - Various decubitus ulcers unstageable and I-II (POA). ABSENT: cyanosis, intact, rash Results Laboratory Results: WBC 7.3 10^3/uL (4.0-10.5) 11/13/19 05:34 RBC 4.08 10^6/uL (4.35-5.55) L 11/13/19 05:34 Hgb 12.8 g/dL (13.5-17.0) L 11/13/19 05:34 Hct 37.2 % (37.9-51.0) L 11/13/19 05:34 MCV 91 fl (80-97) 11/13/19 05:34 MCH 31.3 pg (27.0-33.4) 11/13/19 05:34 MCHC 34.3 g/dL (32.0-36.0) 11/13/19 05:34 RDW 15.6 % (11.5-14.0) H 11/13/19 05:34 Plt Count 102 10^3/uL (150-450) L 11/13/19 05:34 Lymph % (Auto) 7.2 % (13-45) L 11/10/19 17:24 [place] % (Auto) 9.6 % (3-13) 11/10/19 17:24 Eos % (Auto) 0.0 % (0-6) 11/10/19 17:24 Baso % (Auto) 0.2 % (0-2) 11/10/19 17:24 Absolute Neuts (auto) 12.4 10^3/uL (1.7-8.2) H 11/10/19 17:24 Absolute Lymphs (auto) 1.1 10^3/uL (0.5-4.7) 11/10/19 17:24 Absolute Monos (auto) 1.4 10^3/uL (0.1-1.4) 11/10/19 17:24 Absolute Eos (auto) 0.0 10^3/uL (0.0-0.6) 11/10/19 17:24 Absolute Basos (auto) 0.0 10^3/uL (0.0-0.2) 11/10/19 17:24 Seg Neutrophils % 83.0 % (42-78) H 11/10/19 17:24 PT 17.2 SEC (11.4-15.4) H 11/10/19 21:07 INR 1.39 11/10/19 21:07 Carbonic Acid 1.43 mmol/L (1.05-1.35) H 11/10/19 19:37 HCO3/H2CO3 Ratio 19:1 11/10/19 19:37 ABG pH 7.38 (7.35-7.45) 11/10/19 19:37 ABG pCO2 47.5 mmHg (35-45) H 11/10/19 19:37 ABG pO2 43.2 mmHg (80-100) L 11/10/19 19:37 ABG HCO3 27.2 mmol/L (20-24) H 11/10/19 19:37 ABG Total CO2 28.7 mmol/L (23-27) H 11/10/19 19:37 ABG O2 Saturation 77.6 % (94-98) L 11/10/19 19:37 ABG Base Excess 1.3 mmol/L 11/10/19 19:37 FiO2 2L 11/10/19 19:37 Sodium 142.0 mmol/L (137-145) 11/11/19 06:07 Potassium 3.6 mmol/L (3.6-5.0) D 11/11/19 06:07 Chloride 108 mmol/L (98-107) H 11/11/19 06:07 Carbon Dioxide 27 mmol/L (22-30) 11/11/19 06:07 Anion Gap 7 (5-19) 11/11/19 06:07 BUN 54 mg/dL (7-20) H 11/11/19 06:07 Creatinine 1.26 mg/dL (0.52-1.25) H 11/12/19 10:52 Est GFR ( Amer) > 60 (>60) 11/12/19 10:52 Est GFR (MDRD) Non-Af 59 (>60) L 11/12/19 10:52 Glucose 98 mg/dL (75-110) 11/11/19 06:07 POC Glucose 134 mg/dL (70-110) H 11/10/19 19:43 Lactic Acid 1.8 mmol/L (0.7-2.1) 11/11/19 00:27 Calcium 8.2 mg/dL (8.4-10.2) L 11/11/19 06:07 Magnesium 2.1 mg/dL (1.6-2.3) 11/13/19 05:34 Total Bilirubin 0.8 mg/dL (0.2-1.3) 11/11/19 06:07 Direct Bilirubin 0.2 mg/dL (0.0-0.4) 11/11/19 06:07 Neonat Total Bilirubin Not Reportable 11/11/19 06:07 Neonat Direct Bilirubin Not Reportable 11/11/19 06:07 Neonat Indirect Bili Not Reportable 11/11/19 06:07 AST 184 U/L (17-59) H 11/11/19 06:07 ALT 99 U/L (<50) 11/11/19 06:07 Alkaline Phosphatase 56 U/L (38-126) 11/11/19 06:07 Creatine Kinase 956 U/L (55-170) H 11/11/19 22:14 Troponin I 0.070 ng/mL 11/10/19 17:24 Total Protein 5.4 g/dL (6.3-8.2) L 11/11/19 06:07 Albumin 2.4 g/dL (3.5-5.0) L 11/11/19 06:07 TSH 2.55 uIU/mL (0.47-4.68) 11/11/19 06:07 Urine Color HUNG 11/10/19 19:51 Urine Appearance SLIGHTLY-CLOUDY 11/10/19 19:51 Urine pH 5.0 (5.0-9.0) 11/10/19 19:51 Ur Specific Oakes 1.027 11/10/19 19:51 Urine Protein 30 mg/dL (NEGATIVE) H 11/10/19 19:51 Urine Glucose (UA) NEGATIVE mg/dL (NEGATIVE) 11/10/19 19:51 Urine Ketones NEGATIVE mg/dL (NEGATIVE) 11/10/19 19:51 Urine Blood MODERATE (NEGATIVE) H 11/10/19 19:51 Urine Nitrite (Reflex) NEGATIVE (NEGATIVE) 11/10/19 19:51 Urine Bilirubin NEGATIVE (NEGATIVE) 11/10/19 19:51 Urine Urobilinogen 4.0 mg/dL (<2.0) H 11/10/19 19:51 Leukocyte Esterase Rfl NEGATIVE (NEGATIVE) 11/10/19 19:51 Urine RBC (Auto) 2 /HPF 11/10/19 19:51 Urine WBC (Reflex) 2 /HPF 11/10/19 19:51 Squamous Epi Cells Auto 3 /HPF 11/10/19 19:51 Urine Ascorbic Acid NEGATIVE (NEGATIVE) 11/10/19 19:51 11/10/19 17:24 Troponin I 0.070 Impressions: Chest X-Ray 11/10/19 17:54 IMPRESSION: Limited examination. No evidence of acute cardiopulmonary abnormality. Head CT 11/10/19 17:54 IMPRESSION: NORMAL BRAIN CT WITHOUT CONTRAST. EVIDENCE OF ACUTE STROKE: NO. Head MRI 11/11/19 00:00 IMPRESSION: NORMAL MRI OF THE BRAIN WITHOUT INTRAVENOUS GADOLINIUM CONTRAST. EVIDENCE OF ACUTE STROKE: NO. Hip X-Ray 11/11/19 00:00 IMPRESSION: NEGATIVE STUDY OF THE LEFT HIP AND PELVIS. NO RADIOGRAPHIC EVIDENCE OF ACUTE INJURY. Plan Plan of Treatment: The patient is discharged to home into the care of family members. Recommend that the patient follow-up with his primary care provider within 1 week. Also strongly recommend that the patient and family members work with [facility] certified social workers in health care to obtain improved healthcare coverage and social support in the home. Recommend arrangements be undertaken to have the patient transition to a long- term care facility. Take medications as prescribed. Return to the emergency department as needed for concerning symptoms. Time Spent: Greater than 30 Minutes Stroke Is this a Stroke Patient?: No Acute Heart Failure - Is this a Heart Failure Patient?: No
[2019-11-15] MEDS: BUSPIRONE HCL 10 MG TABLET PO SCH (22:04)
[2019-11-16] MEDS: ACETAMINOPHEN 325 MG TABLET PO PRN (02:18)
[2019-11-16] MEDS: HEPARIN SOD (PORCINE) 5,000 UNIT/ML 1 ML VIAL SUBCUT SCH ×3 (05:40→21:18)
[2019-11-16] MEDS: DOCUSATE SODIUM 100 MG CAPSULE PO SCH ×2 (10:29→18:04)
[2019-11-16] MEDS: FAMOTIDINE 20 MG TABLET PO SCH ×2 (10:29→21:18)
[2019-11-16] MEDS: NYSTATIN TOPICAL POWDER 15 GM TP SCH ×2 (10:30→18:04)
[2019-11-16] MEDS: BUSPIRONE HCL 10 MG TABLET PO SCH (21:18)
[2019-11-17] MEDS: HEPARIN SOD (PORCINE) 5,000 UNIT/ML 1 ML VIAL SUBCUT SCH ×3 (05:51→21:36)
[2019-11-17] MEDS: DOCUSATE SODIUM 100 MG CAPSULE PO SCH ×2 (09:32→18:58)
[2019-11-17] MEDS: NYSTATIN TOPICAL POWDER 15 GM TP SCH ×2 (09:35→19:58)
[2019-11-17] MEDS: FAMOTIDINE 20 MG TABLET PO SCH ×2 (09:44→21:36)
[2019-11-17] MEDS: BUSPIRONE HCL 10 MG TABLET PO SCH (21:36)
[2019-11-18] MEDS: HEPARIN SOD (PORCINE) 5,000 UNIT/ML 1 ML VIAL SUBCUT SCH ×3 (06:37→21:44)
[2019-11-18] MEDS: FAMOTIDINE 20 MG TABLET PO SCH ×2 (09:34→21:50)
[2019-11-18] MEDS: DOCUSATE SODIUM 100 MG CAPSULE PO SCH ×2 (09:34→18:22)
[2019-11-18] MEDS: BUSPIRONE HCL 10 MG TABLET PO SCH (21:50)
[2019-11-19] MEDS: HEPARIN SOD (PORCINE) 5,000 UNIT/ML 1 ML VIAL SUBCUT SCH ×3 (05:37→21:22)
[2019-11-19] MEDS: FAMOTIDINE 20 MG TABLET PO SCH ×2 (09:25→21:32)
[2019-11-19] MEDS: DOCUSATE SODIUM 100 MG CAPSULE PO SCH ×2 (09:25→17:56)
[2019-11-19] MEDS: BUSPIRONE HCL 10 MG TABLET PO SCH (21:32)
[2019-11-19] MEDS: MELATONIN 5 MG TABLET PO SCH (21:32)
[2019-11-20] MEDS: HEPARIN SOD (PORCINE) 5,000 UNIT/ML 1 ML VIAL SUBCUT SCH ×3 (05:46→21:15)
[2019-11-20] MEDS: FAMOTIDINE 20 MG TABLET PO SCH ×2 (09:26→21:14)
[2019-11-20] MEDS: DOCUSATE SODIUM 100 MG CAPSULE PO SCH ×2 (09:26→17:45)
[2019-11-20] MEDS ORDERED: DIVALPROEX SODIUM 250 MG TAB.SR.24H PO ONE (20:00)
[2019-11-20] MEDS: MELATONIN 5 MG TABLET PO SCH (21:14)
[2019-11-20] MEDS: BUSPIRONE HCL 10 MG TABLET PO SCH (21:15)
[2019-11-21] MEDS: HEPARIN SOD (PORCINE) 5,000 UNIT/ML 1 ML VIAL SUBCUT SCH ×3 (05:09→21:25)
[2019-11-21] MEDS: DOCUSATE SODIUM 100 MG CAPSULE PO SCH ×2 (09:07→17:34)
[2019-11-21] MEDS: FAMOTIDINE 20 MG TABLET PO SCH ×2 (09:07→21:22)
[2019-11-21] MEDS: DIVALPROEX SODIUM 250 MG TAB.SR.24H PO SCH ×2 (09:07→17:34)
[2019-11-21] MEDS: BUSPIRONE HCL 10 MG TABLET PO SCH (21:21)
[2019-11-21] MEDS: MELATONIN 5 MG TABLET PO SCH (21:21)
[2019-11-21] MEDS: ACETAMINOPHEN 325 MG TABLET PO PRN (21:22)
[2019-11-22] MEDS: HEPARIN SOD (PORCINE) 5,000 UNIT/ML 1 ML VIAL SUBCUT SCH ×3 (05:56→21:01)
[2019-11-22] MEDS: DIVALPROEX SODIUM 250 MG TAB.SR.24H PO SCH ×2 (09:45→17:25)
[2019-11-22] MEDS: DOCUSATE SODIUM 100 MG CAPSULE PO SCH ×2 (09:45→17:25)
[2019-11-22] MEDS: FAMOTIDINE 20 MG TABLET PO SCH ×2 (09:45→21:04)
[2019-11-22] MEDS: MELATONIN 5 MG TABLET PO SCH (21:04)
[2019-11-22] MEDS: BUSPIRONE HCL 10 MG TABLET PO SCH (21:04)
[2019-11-23] MEDS: ACETAMINOPHEN 325 MG TABLET PO PRN ×2 (04:18→21:18)
[2019-11-23] MEDS: HEPARIN SOD (PORCINE) 5,000 UNIT/ML 1 ML VIAL SUBCUT SCH ×3 (05:11→21:17)
[2019-11-23] MEDS: DOCUSATE SODIUM 100 MG CAPSULE PO SCH ×2 (10:06→17:40)
[2019-11-23] MEDS: DIVALPROEX SODIUM 250 MG TAB.SR.24H PO SCH ×2 (10:07→17:39)
[2019-11-23] MEDS: FAMOTIDINE 20 MG TABLET PO SCH ×2 (10:07→21:18)
[2019-11-23] MEDS: MELATONIN 5 MG TABLET PO SCH (21:19)
[2019-11-23] MEDS: BUSPIRONE HCL 10 MG TABLET PO SCH (21:19)
[2019-11-24] MEDS: HEPARIN SOD (PORCINE) 5,000 UNIT/ML 1 ML VIAL SUBCUT SCH ×3 (05:01→21:19)
[2019-11-24] MEDS: DIVALPROEX SODIUM 250 MG TAB.SR.24H PO SCH ×2 (09:06→17:40)
[2019-11-24] MEDS: DOCUSATE SODIUM 100 MG CAPSULE PO SCH ×2 (09:06→17:40)
[2019-11-24] MEDS: FAMOTIDINE 20 MG TABLET PO SCH ×2 (09:06→21:17)
[2019-11-24] MEDS: ACETAMINOPHEN 325 MG TABLET PO PRN (17:40)
[2019-11-24] MEDS: BUSPIRONE HCL 10 MG TABLET PO SCH (21:17)
[2019-11-24] MEDS: MELATONIN 5 MG TABLET PO SCH (21:17)
[2019-11-25] MEDS: HEPARIN SOD (PORCINE) 5,000 UNIT/ML 1 ML VIAL SUBCUT SCH ×2 (05:12→14:29)
[2019-11-25] MEDS: FAMOTIDINE 20 MG TABLET PO SCH ×2 (09:11→21:21)
[2019-11-25] MEDS: DOCUSATE SODIUM 100 MG CAPSULE PO SCH ×2 (09:11→17:18)
[2019-11-25] MEDS: DIVALPROEX SODIUM 250 MG TAB.SR.24H PO SCH ×2 (09:11→17:18)
--- NOTE | 2019-11-25 16:51 | Progress Note ---
Provider Note Provider Note: Patient has been discharged and is here on a social hold. The nurse was changing his dressings earlier and noticed that the sacral wound that was present on admission looked worse than when she had seen it previously. Dr. Dhaliwal happened to be nearby and he stopped and take a look. He thought the wound needed to be debrided. He gave orders to make the patient n.p.o. and to put him on some fluids and that he was cannot take him to the operating room sometime this evening for debridement.
[2019-11-25] MEDS ORDERED: GLUCAGON,HUMAN RECOMB 1 MG INJ SUBCUT PRN (17:24)
[2019-11-25] MEDS ORDERED: DEXTROSE 40% GEL 15 GM TUBE PO PRN ×2 (17:24)
[2019-11-25] MEDS ORDERED: DEXTROSE 50%-WATER 25 GM/50 ML DISP.SYRIN IV PRN ×2 (17:24)
--- NOTE | 2019-11-25 17:24 | PDOC CONSULTATION ---
Consultation Consult Date: 11/25/19 Provider Consulted: MIGUEL GRIGGS Consult reason:: Bilateral perirectal abscess and pressure sore History of Present Illness Admission Date/PCP: 11/10/19 23:04 SARY MORRIS History of Present Illness: KRYSTEN BANDA is a 58 year old male,bedridden and has severe dementia thus rendering him unable to contribute in his medical care. He has been noted by the family to have decreased oral intake associated with his progressively decreasing mental status. The patient was admitted for evaluation and found to have severe dehydration with kidney injury and encephalopathy. He eventually recovered. However, he remained bedridden since then and he has developed a large bilateral perirectal area of redness and swelling with odor. Past Medical History Cardiac Medical History: Reports: Hypertension Denies: Coronary Artery Disease, Myocardial Infarction Pulmonary Medical History: Denies: Asthma, Chronic Obstructive Pulmonary Disease (COPD) EENT Medical History: Denies: Cataracts, Ears - Hearing aids Neurological Medical History: Reports: Other - Early onset Alzheimer's dementia Denies: Hemorrhagic CVA, Ischemic CVA Endocrine Medical History: Denies: Diabetes Mellitus Type 1, Diabetes Mellitus Type 2, Hyperthyroidism, Hypothyroidism Renal/ Medical History: Denies: Chronic Kidney Disease, Nephrolithiasis Malignancy Medical History: Reports: None GI Medical History: Reports: Cirrhosis - Alcoholic cirrhosis Denies: Gastroesophageal Reflux Disease, Hepatitis, Peptic Ulcer Disease Musculoskeltal Medical History: Denies: Arthritis, Gout Skin Medical History: Denies: Eczema, Psoriasis Psychiatric Medical History: Reports: Alcohol Dependency, Dementia, Substance Abuse, Tobacco Dependency Traumatic Medical History: Reports: None Hematology: Denies: Anemia, Bleeding Tendencies Infectious Medical History: Reports: None Past Surgical History Past Surgical History: Reports: Appendectomy Social History Lives with: Family Smoking Status: Former Smoker Electronic Cigarette use?: No Frequency of Alcohol Use: None - Formerly a very heavy drinker prior to onset of his dementia Hx Recreational Drug Use: No - History of remote substance abuse including phenobarbital. Drugs: None Hx Prescription Drug Abuse: No - Advance Directive Resuscitation Status: Do Not Resuscitate Family History Family History: denies: CAD, DM, Hypertension, Malignancy Parental Family History Reviewed: No Children Family History Reviewed: No Sibling(s) Family History Reviewed.: No Medication/Allergy Allergies/Adverse Reactions: Penicillins Allergy (Verified 10/08/19 08:07) Physical Exam Vital Signs: Temp Pulse Resp BP Pulse Ox 98.2 F 65 16 98/60 L 100 11/25/19 12:00 11/25/19 12:00 11/25/19 12:00 11/25/19 12:00 11/25/19 12:00 Intake & Output 11/24/19 11/25/19 11/26/19 06:59 06:59 06:59 Intake Total 1726 1906 Balance 1726 1906 Weight 109.7 kg 111.2 kg General appearance: PRESENT: obese, other - Demented and poorly responsive, however the patient is awake Head exam: PRESENT: atraumatic, normocephalic Eye exam: PRESENT: EOMI Mouth exam: PRESENT: neck supple Teeth exam: PRESENT: poor dentation Respiratory exam: PRESENT: clear to auscultation jose Cardiovascular exam: PRESENT: RRR GI/Abdominal exam: PRESENT: soft Rectal exam: PRESENT: other - Perirectal area = bilateral redness, fullness, with foul smell, no drainage noted, tender on palpation Musculoskeletal exam: PRESENT: other - Please lower extremity range of motion Neurological exam: PRESENT: alert, altered Results Laboratory Results: 11/13/19 05:34 11/12/19 10:52 11/10/19 11/10/19 11/11/19 17:24 17:24 09:47 Creatine Kinase 5644 H 1323 H Troponin I 0.070 11/11/19 22:14 Creatine Kinase 956 H Troponin I Impressions: Chest X-Ray 11/10/19 17:54 IMPRESSION: Limited examination. No evidence of acute cardiopulmonary abnormality. Head CT 11/10/19 17:54 IMPRESSION: NORMAL BRAIN CT WITHOUT CONTRAST. EVIDENCE OF ACUTE STROKE: NO. Head MRI 11/11/19 00:00 IMPRESSION: NORMAL MRI OF THE BRAIN WITHOUT INTRAVENOUS GADOLINIUM CONTRAST. EVIDENCE OF ACUTE STROKE: NO. Hip X-Ray 11/11/19 00:00 IMPRESSION: NEGATIVE STUDY OF THE LEFT HIP AND PELVIS. NO RADIOGRAPHIC EVIDENCE OF ACUTE INJURY. Assessment & Plan - Plan Summary Plan Summary: Assessment: Patient recently admitted for decrease in mental status, encephalopathy secondary to dehydration The patient is remained bedridden since today admission Physical exam reveals bilateral perirectal erythema with fullness fluctuation and tenderness as per bilateral perirectal abscess Foul smell from the perirectal area Plan CT scan pelvis to better define the extent of the perirectal abscess Blood work CBC and BMP Perioperative EKG N.p.o. after midnight IV fluids Consent for bilateral perirectal abscess incision and drainage and debridement. Procedure, risks benefits, complication would be discussed with the family they understand they decide to proceed.
[2019-11-25] MEDS: LEVOFLOXACIN 500 MG/D5W RTU 500 MG/100 ML RTUPB IV SCH (19:30)
[2019-11-25] MEDS: NORMAL SALINE 1000 ML 1,000 ML IV PRN (19:31)
--- NOTE | 2019-11-25 19:37 | EKG REPORT ---
SEVERITY:- ABNORMAL ECG - SINUS TACHYCARDIA VENTRICULAR PREMATURE COMPLEX INTERPOLATED VENTRICULAR PREMATURE COMPLEX NONSPECIFIC INTRAVENTRICULAR CONDUCTION DELAY : Confirmed by: Gwendolyn Nascimento MD 25-Nov-2019 19:36:14
[2019-11-25] MEDS ORDERED: METRONIDAZOLE 500 MG/NS RTU 500 MG/100 ML RTUPB IV SCH (20:00)
[2019-11-25] MEDS: BUSPIRONE HCL 10 MG TABLET PO SCH (21:21)
[2019-11-25] MEDS: ACETAMINOPHEN 325 MG TABLET PO PRN (21:21)
[2019-11-25] MEDS: MELATONIN 5 MG TABLET PO SCH (21:21)
--- NOTE | 2019-11-25 23:45 | RADIOLOGY REPORT (SQ) ---
EXAM DESCRIPTION: CT scan of the pelvis with contrast CLINICAL HISTORY: 58 years Male; evaluate extent bilateral perirectal abscess TECHNIQUE: CT of the abdomen and pelvis with intravenous contrast. All CT scans at this facility use dose modulation, iterative reconstruction, and/or weight based dosing when appropriate to reduce radiation dose to as low as reasonably achievable. This exam was performed according to our department optimization program which includes automated exposure control, adjustment of the mA and/or kv according to patient size and/or use of iterative reconstruction technique. COMPARISON: CT scan of the abdomen and pelvis without contrast 10/08/2019 FINDINGS: Pelvis: General: Midline abdominal wall hernia is seen which contains multiple loops of bowel. No definitive bowel obstruction. There is a large amount of formed stool in the colon and there is thickening of the rectal wall. Inflammation extends posteriorly from the anal verge and distal rectum into the right medial buttocks cheek. There is associated air and fluid which tracks superiorly and extends to the coccyx. The coccyx may be exposed. There is a probable associated fluid collection which measures 4.9 x 3.7 x 4.6 cm. No definitive periosteal destruction or reaction is seen in the coccyx to suggest osteomyelitis.. No intra-abdominal extension of the process Lymph nodes: Nonspecific inguinal lymphadenopathy is noted. Bladder: Unremarkable. Pelvis: Diffuse subcutaneous edema is seen in the abdominal wall and upper thighs consistent with anasarca. Bones: No acute bone findings. IMPRESSION: 1. Large volume of stool in the colon. The rectal vault is distended with stool and there is wall thickening. Inflammation is seen extending from the anal verge/distal rectum into the soft tissues of the right buttocks with a focal fluid collection measuring 4.9 x 3.7 x 4.6 cm consistent with an abscess. No abscess is seen on the left. This process also involves the tip of the coccyx. 2. No intra-abdominal extension. 3. Midline ventral hernia containing multiple bowel loops. No obstruction. THIS REPORT CONTAINS FINDINGS THAT MAY BE CRITICAL TO PATIENT CARE: The findings were verbally discussed via telephone conference with MIGUEL GRIGGS MD at 10:41 PM UNIT MANAGER on 11/25/2019 .
[2019-11-26] MEDS: METRONIDAZOLE 500 MG/NS RTU 500 MG/100 ML RTUPB IV SCH ×3 (01:42→20:18)
[2019-11-26] MEDS: NORMAL SALINE 1000 ML 1,000 ML IV PRN (06:31)
[2019-11-26 09:30] LABS: ABSOLUTE MONOCYTES (AUTO) 1.1 10^3/uL (0.1-1.4); ABSOLUTE NEUT (AUTO) 10.1 10^3/uL (1.7-8.2); BASOPHILS % (AUTO) 0.2 % (0-2); EOSINOPHILS % (AUTO) 0.2 % (0-6); HEMATOCRIT 31.8 % (37.9-51.0); HEMOGLOBIN 10.9 g/dL (13.5-17.0); LYMPHOCYTES % (AUTO) 8.1 % (13-45); MEAN CORPUSCULAR HEMOGLOBIN 31.3 pg (27.0-33.4); MEAN CORPUSCULAR HGB CONC 34.4 g/dL (32.0-36.0); MEAN CORPUSCULAR VOLUME 91 fl (80-97); MONOCYTES % (AUTO) 9.1 % (3-13); PLATELET COUNT 143 10^3/uL (150-450); RED BLOOD COUNT 3.49 10^6/uL (4.35-5.55); RED CELL DISTRIBUTION WIDTH 14.9 % (11.5-14.0); SEGMENTED NEUTROPHILS % (AUTO) 82.4 % (42-78); TOTAL CELLS COUNTED % (AUTO) 100 %; WHITE BLOOD COUNT 12.3 10^3/uL (4.0-10.5)
[2019-11-26 09:55] LABS: ANION GAP 9 (5-19); BLOOD UREA NITROGEN 21 mg/dL (7-20); CALCIUM 7.6 mg/dL (8.4-10.2); CARBON DIOXIDE 25 mmol/L (22-30); CHLORIDE 103 mmol/L (98-107); GLUCOSE 75 mg/dL (75-110); POTASSIUM 3.6 mmol/L (3.6-5.0)
--- NOTE | 2019-11-26 14:51 | EKG REPORT ---
SEVERITY:- OTHERWISE NORMAL ECG - SINUS RHYTHM LOW VOLTAGE IN FRONTAL LEADS : Confirmed by: Gwendolyn Nascimento MD 26-Nov-2019 14:49:45
--- NOTE | 2019-11-26 15:52 | PDOC PROGRESS REPORT ---
Subjective Progress Note for:: 11/26/19 Subjective:: No adverse events overnight. Patient went down for incision and drainage of perirectal abscess along with debridement of his numerous pressure sores which were present on admission. Otherwise his condition remains unchanged Reason For Visit: ACUTE RESPIRATORY FAILURE WITH HYPOXIA AND Physical Exam Vital Signs: Temp Pulse Resp BP Pulse Ox 98.1 F 81 20 119/64 99 11/26/19 09:04 11/26/19 09:04 11/26/19 09:04 11/26/19 08:00 11/26/19 09:04 Intake & Output 11/25/19 11/26/19 11/27/19 06:59 06:59 06:59 Intake Total 1905 1897 Balance 1905 1897 Weight 111.2 kg 113.1 kg General appearance: PRESENT: no acute distress, well-developed, well-nourished Respiratory exam: PRESENT: clear to auscultation jose. ABSENT: rales, rhonchi, wheezes Cardiovascular exam: PRESENT: RRR. ABSENT: diastolic murmur, rubs, systolic murmur GI/Abdominal exam: PRESENT: normal bowel sounds, soft. ABSENT: distended, guarding, mass, organolmegaly, rebound, tenderness Extremities exam: PRESENT: +2 edema - Chronic bilateral lymphedema lower extremities Neurological exam: PRESENT: alert, awake, oriented to person Skin exam: PRESENT: dry, warm, other - Various decubitus ulcers of various stages, elephantiasis skin changes of lower extremities due to chronic lymphedema Results Laboratory Results: 11/26/19 09:09 11/26/19 09:09 11/26/19 11/26/19 09:09 09:09 WBC 12.3 H RBC 3.49 L Hgb 10.9 L Hct 31.8 L MCV 91 MCH 31.3 MCHC 34.4 RDW 14.9 H Plt Count 143 L Seg Neutrophils % 82.4 H Sodium 136.7 L Potassium 3.6 Chloride 103 Carbon Dioxide 25 Anion Gap 9 BUN 21 H Creatinine 0.66 Est GFR ( Amer) > 60 Glucose 75 Calcium 7.6 L 11/10/19 11/10/19 11/11/19 17:24 17:24 09:47 Creatine Kinase 5644 H 1323 H Troponin I 0.070 11/11/19 22:14 Creatine Kinase 956 H Troponin I Impressions: Chest X-Ray 11/10/19 17:54 IMPRESSION: Limited examination. No evidence of acute cardiopulmonary abnormality. Head CT 11/10/19 17:54 IMPRESSION: NORMAL BRAIN CT WITHOUT CONTRAST. EVIDENCE OF ACUTE STROKE: NO. Head MRI 11/11/19 00:00 IMPRESSION: NORMAL MRI OF THE BRAIN WITHOUT INTRAVENOUS GADOLINIUM CONTRAST. EVIDENCE OF ACUTE STROKE: NO. Hip X-Ray 11/11/19 00:00 IMPRESSION: NEGATIVE STUDY OF THE LEFT HIP AND PELVIS. NO RADIOGRAPHIC EVIDENCE OF ACUTE INJURY. Pelvis CT 11/25/19 00:00 IMPRESSION: 1. Large volume of stool in the colon. The rectal vault is distended with stool and there is wall thickening. Inflammation is seen extending from the anal verge/distal rectum into the soft tissues of the right buttocks with a focal fluid collection measuring 4.9 x 3.7 x 4.6 cm consistent with an abscess. No abscess is seen on the left. This process also involves the tip of the coccyx. 2. No intra-abdominal extension. 3. Midline ventral hernia containing multiple bowel loops. No obstruction. THIS REPORT CONTAINS FINDINGS THAT MAY BE CRITICAL TO PATIENT CARE: The findings were verbally discussed via telephone conference with MIGUEL GRIGGS MD at 10:41 PM RN RADIOLOGY on 11/25/2019 . Assessment and Plan - Diagnosis (1) Alzheimer's dementia without behavioral disturbance Qualifiers: Alzheimer's disease onset: early-onset Qualified Code(s): G30.0 - Alzheimer's disease with early onset; F02.80 - Dementia in other diseases classified elsewhere without behavioral disturbance Is this a current diagnosis for this admission?: Yes Plan: Stable (2) Bilateral perirectal abscess Is this a current diagnosis for this admission?: Yes Plan: Surgery consulted for incision and drainage (3) SHELBIE (acute kidney injury) Is this a current diagnosis for this admission?: Yes Plan: Resolved (4) Acute metabolic encephalopathy Is this a current diagnosis for this admission?: Yes Plan: Resolved (5) Lymphedema of both lower extremities Is this a current diagnosis for this admission?: Yes Plan: Chronic and stable (6) Rhabdomyolysis Qualifiers: Rhabdomyolysis type: non-traumatic Qualified Code(s): M62.82 - Rhabdomyolysis Is this a current diagnosis for this admission?: Yes Plan: Resolved - Time Time Spent with patient: 15-24 minutes
[2019-11-26] MEDS ORDERED: PROPOFOL INJ 200 MG/20 ML VIAL IV ONE (16:34)
[2019-11-26] MEDS ORDERED: MIDAZOLAM 2 MG/2 ML INJ ONE (16:34)
[2019-11-26] MEDS ORDERED: FENTANYL CITRATE INJ/PF 100 MCG/2 ML AMPUL ONE (16:34)
[2019-11-26] MEDS ORDERED: KETAMINE HCL INJ 500 MG/10 ML VIAL ONE (16:34)
[2019-11-26] MEDS: DOCUSATE SODIUM 100 MG CAPSULE PO SCH ×2 (16:35→20:17)
[2019-11-26] MEDS: FAMOTIDINE 20 MG TABLET PO SCH ×2 (16:36→21:07)
[2019-11-26] MEDS: DIVALPROEX SODIUM 250 MG TAB.SR.24H PO SCH ×2 (16:36→20:18)
[2019-11-26] MEDS ORDERED: MORPHINE SULFATE 10 MG/ML INJ IV PRN (17:13)
[2019-11-26] MEDS ORDERED: FENTANYL CITRATE INJ/PF 100 MCG/2 ML AMPUL IV PRN ×3 (17:13)
[2019-11-26] MEDS ORDERED: DIPHENHYDRAMINE HCL 50 MG/ML VIAL IV PRN (17:13)
[2019-11-26] MEDS ORDERED: MEPERIDINE HCL/PF INJ 25 MG/1 ML DISP.SYRIN IV PRN (17:13)
[2019-11-26] MEDS ORDERED: PROMETHAZINE HCL INJ 25 MG/1 ML VIAL IV PRN (17:13)
--- NOTE | 2019-11-26 18:23 | Operative Report ---
Nonrecallable Operative Report DATE OF SURGERY: 11/26/19 PREOPERATIVE DIAGNOSIS: sacral pressure sore, right gluteal abscess POSTOPERATIVE DIAGNOSIS: sacral prssure sore grade 4; right gluteal abscess OPERATION: sacral pressure full thickness debridment to bone; incision drainage of right gluteal abscess SURGEON: MIGUEL GRIGGS ANESTHESIA: LMAC TISSUE REMOVED OR ALTERED: grade 4 sacral pressure sore necrotic tissue and right gluteal abscess cavity tissue COMPLICATIONS: none ESTIMATED BLOOD LOSS: 50 mL INTRAOPERATIVE FINDINGS: grade 4 sacral pressure sore measuring 10 cm in diameter and 5 cm deep; large right gluteal abscess cavity connected to the sacral pressure sore PROCEDURE: The procedure was done in the operating room, MAC anesthesia was induced by the anesthesiologist, the patient was placed in a lateral decubitus, the area of interest was prepped and draped in usual fashion. A surgical marker was used to outline the proposed incision just outside the skin edges of the sacral pressure sore, this was made with a Bovie and deepened through the healthy tissue until good bleeding was obtained. The dissection was then continued to completely excise the area of interest previously outlined well as the underlying tissue which reached the sacral bone. The debrided area was irrigated with normal saline until clear. Local bleeders were cauterized with Bovie. The right gluteal abscess was found to be connected to the sacral pressure sore therefore the dissection was continued so to connected to cavities into a single one. During the procedure, a moderate amount of pus was obtained. This was sent for aerobic anaerobic culture and Gram stain. After this, a fing er was inserted inside the wound and directed inferiorly toward the lowest point of the abscess cavity. Local bleeders were cauterized. A counterincision of the right gluteus skin was made faraway from the sacral area and two 1/2 inch Hector drain were threaded through both incision into the sacral pressure sore and tied to itself with a 2-0 nylon suture. The abscess cavity was packed with Betadine soaked 4 x 4's, ABDs, and tape were applied. The patient tolerated procedure well and transferred to the recovery room in satisfactory conditions.
[2019-11-26] MEDS: LEVOFLOXACIN 500 MG/D5W RTU 500 MG/100 ML RTUPB IV SCH (20:19)
[2019-11-26] MEDS ORDERED: NORMAL SALINE 500 ML IV PRN (21:00)
[2019-11-26] MEDS: MELATONIN 5 MG TABLET PO SCH (21:07)
[2019-11-26] MEDS: BUSPIRONE HCL 10 MG TABLET PO SCH (21:07)
[2019-11-27] MEDS: METRONIDAZOLE 500 MG/NS RTU 500 MG/100 ML RTUPB IV SCH ×3 (02:11→19:50)
[2019-11-27 07:03] LABS: APPEARANCE,URINE SLIGHTLY-CLOUDY; BILIRUBIN,URINE NEGATIVE (NEGATIVE); COLOR,URINE AMBER; GLUCOSE, URINE NEGATIVE (NEGATIVE); KETONES,URINE TRACE mg/dL (NEGATIVE); LEUKOCYTE ESTERASE,URINE TRACE (NEGATIVE); NITRITE,URINE NEGATIVE (NEGATIVE); PROTEIN,URINE NEGATIVE (NEGATIVE); URINE SPECIFIC GRAVITY 1.029
[2019-11-27] MEDS: ENOXAPARIN SODIUM INJ 40 MG/0.4 ML DISP.SYRIN SUBCUT SCH (09:26)
[2019-11-27] MEDS: DOCUSATE SODIUM 100 MG CAPSULE PO SCH ×2 (09:32→17:45)
[2019-11-27] MEDS: FAMOTIDINE 20 MG TABLET PO SCH ×2 (09:33→21:11)
[2019-11-27] MEDS: DIVALPROEX SODIUM 250 MG TAB.SR.24H PO SCH ×2 (09:33→17:45)
--- NOTE | 2019-11-27 10:43 | PDOC PROGRESS REPORT ---
Subjective Progress Note for:: 11/27/19 Subjective:: Decubiti ulcer Reason For Visit: ACUTE RESPIRATORY FAILURE WITH HYPOXIA AND Physical Exam Vital Signs: Temp Pulse Resp BP Pulse Ox 97.6 F 77 20 123/74 98 11/27/19 08:24 11/27/19 08:24 11/27/19 08:24 11/27/19 08:24 11/27/19 08:24 Intake & Output 11/26/19 11/27/19 11/28/19 06:59 06:59 06:59 Intake Total 5124 062 5385 Output Total 445 Balance 0706 632 1844 Weight 113.1 kg 113.2 kg General appearance: PRESENT: no acute distress Head exam: PRESENT: normocephalic Eye exam: PRESENT: EOMI Ear exam: PRESENT: normal external ear exam Mouth exam: PRESENT: moist Teeth exam: PRESENT: poor dentation Neck exam: PRESENT: full ROM Respiratory exam: PRESENT: clear to auscultation jose Cardiovascular exam: PRESENT: RRR Pulses: PRESENT: normal carotid pulses, normal radial pulses, normal femoral pulses Vascular exam: PRESENT: normal capillary refill GI/Abdominal exam: PRESENT: soft Rectal exam: PRESENT: other - The rectum and buttock area were examined the previous dressing was removed from the debridement of the decubitus ulcer that is low sacrum there is a large amount of clot in the wound which was removed. The wound itself is clean now with 2 Hector drains tied to each other packing is been removed and the wound is been repacked with a wet-to-dry dressing. Gentrourinary exam: PRESENT: other Extremities exam: PRESENT: pedal edema, other - Lateral lower extremity lymphedema Musculoskeletal exam: PRESENT: other - Nonambulatory secondary to lower extremity lymphedema Neurological exam: PRESENT: alert, awake Skin exam: PRESENT: dry Results Laboratory Results: 11/26/19 09:09 11/26/19 09:09 11/27/19 05:45 Urine Color HUNG Urine Appearance SLIGHTLY-CLOUDY Urine pH 5.0 Ur Specific [place] 1.029 Urine Protein NEGATIVE Urine Glucose (UA) NEGATIVE Urine Ketones TRACE H Urine Blood NEGATIVE Urine Nitrite NEGATIVE Ur Leukocyte Esterase TRACE H Urine WBC (Auto) 4 Urine RBC (Auto) 2 11/10/19 11/10/19 11/11/19 17:24 17:24 09:47 Creatine Kinase 5644 H 1323 H Troponin I 0.070 01/23/20 22:14 Creatine Kinase 956 H Troponin I Impressions: Chest X-Ray 11/10/19 17:54 IMPRESSION: Limited examination. No evidence of acute cardiopulmonary abnormality. Head CT 11/10/19 17:54 IMPRESSION: NORMAL BRAIN CT WITHOUT CONTRAST. EVIDENCE OF ACUTE STROKE: NO. Head MRI 11/11/19 00:00 IMPRESSION: NORMAL MRI OF THE BRAIN WITHOUT INTRAVENOUS GADOLINIUM CONTRAST. EVIDENCE OF ACUTE STROKE: NO. Hip X-Ray 11/11/19 00:00 IMPRESSION: NEGATIVE STUDY OF THE LEFT HIP AND PELVIS. NO RADIOGRAPHIC EVIDENCE OF ACUTE INJURY. Pelvis CT 11/25/19 00:00 IMPRESSION: 1. Large volume of stool in the colon. The rectal vault is distended with stool and there is wall thickening. Inflammation is seen extending from the anal verge/distal rectum into the soft tissues of the right buttocks with a focal fluid collection measuring 4.9 x 3.7 x 4.6 cm consistent with an abscess. No abscess is seen on the left. This process also involves the tip of the coccyx. 2. No intra-abdominal extension. 3. Midline ventral hernia containing multiple bowel loops. No obstruction. THIS REPORT CONTAINS FINDINGS THAT MAY BE CRITICAL TO PATIENT CARE: The findings were verbally discussed via telephone conference with MIGUEL GRIGGS MD at 10:41 PM WELL REACTIVATOR OPERATOR on 11/25/2019 . Assessment & Plan - Time Time Spent with patient: 35 or more minutes - Plan Summary Plan Summary: Pression large sacral decubiti status post debridement yesterday. We will commence with wet-to-dry dressings with normal saline twice daily. Consider VAC placement in the next 1 to 2 days.
--- NOTE | 2019-11-27 16:34 | PDOC PROGRESS REPORT ---
Subjective Progress Note for:: 11/27/19 Subjective:: No adverse events overnight. Mental status waxes and wanes regarding his memory and clarity of thought. His appetite is been fair. Reason For Visit: ACUTE RESPIRATORY FAILURE WITH HYPOXIA AND Physical Exam Vital Signs: Temp Pulse Resp BP Pulse Ox 97.6 F 77 20 123/74 98 11/27/19 08:24 11/27/19 08:24 11/27/19 08:24 11/27/19 08:24 11/27/19 08:24 Intake & Output 11/26/19 11/27/19 11/28/19 06:59 06:59 06:59 Intake Total 5825 477 8811 Output Total 445 Balance 3281 526 5307 Weight 113.1 kg 113.2 kg General appearance: PRESENT: no acute distress, well-developed, well-nourished Respiratory exam: PRESENT: clear to auscultation jose. ABSENT: rales, rhonchi, wheezes Cardiovascular exam: PRESENT: RRR. ABSENT: diastolic murmur, rubs, systolic murmur GI/Abdominal exam: PRESENT: normal bowel sounds, soft. ABSENT: distended, guar ding, mass, organolmegaly, rebound, tenderness Extremities exam: PRESENT: +2 edema - Chronic bilateral lymphedema lower extremities Neurological exam: PRESENT: alert, awake, oriented to person Skin exam: PRESENT: dry, warm, other - Various decubitus ulcers of various stages, elephantiasis skin changes of lower extremities due to chronic lymphedema Results Laboratory Results: 11/26/19 09:09 11/26/19 09:09 11/27/19 05:45 Urine Color HUNG Urine Appearance SLIGHTLY-CLOUDY Urine pH 5.0 Ur Specific [place] 1.029 Urine Protein NEGATIVE Urine Glucose (UA) NEGATIVE Urine Ketones TRACE H Urine Blood NEGATIVE Urine Nitrite NEGATIVE Ur Leukocyte Esterase TRACE H Urine WBC (Auto) 4 Urine RBC (Auto) 2 11/10/19 11/10/19 11/11/19 17:24 17:24 09:47 Creatine Kinase 5644 H 1323 H Troponin I 0.070 11/11/19 22:14 Creatine Kinase 956 H Troponin I Impressions: Chest X-Ray 11/10/19 17:54 IMPRESSION: Limited examination. No evidence of acute cardiopulmonary abn ormality. Head CT 11/10/19 17:54 IMPRESSION: NORMAL BRAIN CT WITHOUT CONTRAST. EVIDENCE OF ACUTE STROKE: NO. Head MRI 11/11/19 00:00 IMPRESSION: NORMAL MRI OF THE BRAIN WITHOUT INTRAVENOUS GADOLINIUM CONTRAST. EVIDENCE OF ACUTE STROKE: NO. Hip X-Ray 11/11/19 00:00 IMPRESSION: NEGATIVE STUDY OF THE LEFT HIP AND PELVIS. NO RADIOGRAPHIC EVIDENCE OF ACUTE INJURY. Pelvis CT 11/25/19 00:00 IMPRESSION: 1. Large volume of stool in the colon. The rectal vault is distended with stool and there is wall thickening. Inflammation is seen extending from the anal verge/distal rectum into the soft tissues of the right buttocks with a focal fluid collection measuring 4.9 x 3.7 x 4.6 cm consistent with an abscess. No abscess is seen on the left. This process also involves the tip of the coccyx. 2. No intra-abdominal extension. 3. Midline ventral hernia containing multiple bowel loops. No obstruction. THIS REPORT CONTAINS FINDINGS THAT MAY BE CRITICAL TO PATIENT CARE: The findings were verbally discussed via telephone conference with MIGUEL GRIGGS MD at 10:41 PM FUSION OPERATOR on 11/25/2019 . Assessment and Plan - Diagnosis (1) Alzheimer's dementia without behavioral disturbance Qualifiers: Alzheimer's disease onset: early-onset Qualified Code(s): G30.0 - Alzh eimer's disease with early onset; F02.80 - Dementia in other diseases classified elsewhere without behavioral disturbance Is this a current diagnosis for this admission?: Yes Plan: Stable (2) Bilateral perirectal abscess Is this a current diagnosis for this admission?: Yes Plan: Surgery consulted for incision and drainage, on empiric antibiotics, cultures are pending (3) SHELBIE (acute kidney injury) Is this a current diagnosis for this admission?: Yes Plan: Resolved (4) Acute metabolic encephalopathy Is this a current diagnosis for this admission?: Yes Plan: Resolved (5) Lymphedema of both lower extremities Is this a current diagnosis for this admission?: Yes Plan: Chronic and stable (6) Rhabdomyolysis Qualifiers: Rhabdomyolysis type: non-traumatic Qualified Code(s): M62.82 - Rhabdomyolys is Is this a current diagnosis for this admission?: Yes Plan: Resolved - Time Time Spent with patient: 15-24 minutes
[2019-11-27] MEDS: LEVOFLOXACIN 500 MG/D5W RTU 500 MG/100 ML RTUPB IV SCH (17:45)
[2019-11-27] MEDS: ACETAMINOPHEN 325 MG TABLET PO PRN (20:18)
[2019-11-27] MEDS: BUSPIRONE HCL 10 MG TABLET PO SCH (21:11)
[2019-11-27] MEDS: MELATONIN 5 MG TABLET PO SCH (21:11)
[2019-11-28] MEDS: METRONIDAZOLE 500 MG/NS RTU 500 MG/100 ML RTUPB IV SCH ×3 (02:08→17:25)
[2019-11-28] MEDS: ACETAMINOPHEN 325 MG TABLET PO PRN ×3 (05:48→16:18)
[2019-11-28] MEDS: DIVALPROEX SODIUM 250 MG TAB.SR.24H PO SCH ×2 (09:47→17:25)
[2019-11-28] MEDS: DOCUSATE SODIUM 100 MG CAPSULE PO SCH ×2 (09:47→17:25)
[2019-11-28] MEDS: FAMOTIDINE 20 MG TABLET PO SCH ×2 (09:47→23:23)
[2019-11-28] MEDS: ENOXAPARIN SODIUM INJ 40 MG/0.4 ML DISP.SYRIN SUBCUT SCH (09:53)
--- NOTE | 2019-11-28 13:39 | PDOC PROGRESS REPORT ---
Subjective Progress Note for:: 11/28/19 Subjective:: No adverse events overnight. Vital signs been stable. This morning he was apparently in some duress, and appeared to be concentrating hard, and it turned out he was violently masturbating. When I spoke to him, he stopped for a brief moment, was very disoriented as is his baseline and then he resumed the aforementioned activity. Reason For Visit: ACUTE RESPIRATORY FAILURE WITH HYPOXIA AND Physical Exam Vital Signs: Temp Pulse Resp BP Pulse Ox 97.4 F 73 18 105/59 L 100 11/28/19 11:15 11/28/19 11:15 11/28/19 11:15 11/28/19 11:15 11/28/19 11:15 Intake & Output 11/27/19 11/28/19 11/29/19 06:59 06:59 06:59 Intake Total 950 2984 Output Total 445 850 Balance 505 2134 Weight 113.2 kg 112.2 kg General appearance: PRESENT: no acute distress, well-developed, well-nourished Respiratory exam: PRESENT: clear to auscultation jose. ABSENT: rales, rhonchi, wheezes Cardiovascular exam: PRESENT: RRR. ABSENT: diastolic murmur, rubs, systolic murmur GI/Abdominal exam: PRESENT: normal bowel sounds, soft. ABSENT: distended, guarding, mass, organolmegaly, rebound, tenderness Extremities exam: PRESENT: +2 edema - Chronic bilateral lymphedema lower extremities Neurological exam: PRESENT: alert, awake, oriented to person Skin exam: PRESENT: dry, warm, other - Various decubitus ulcers of various stages, elephantiasis skin changes of lower extremities due to chronic lymphedema Results Laboratory Results: 11/26/19 09:09 11/26/19 09:09 11/10/19 11/10/19 11/11/19 17:24 17:24 09:47 Creatine Kinase 5644 H 1323 H Troponin I 0.070 11/11/19 22:14 Creatine Kinase 956 H Troponin I Impressions: Chest X-Ray 11/10/19 17:54 IMPRESSION: Limited examination. No evidence of acute cardiopulmonary abnormality. Head CT 11/10/19 17:54 IMPRESSION: NORMAL BRAIN CT WITHOUT CONTRAST. EVIDENCE OF ACUTE STROKE: NO. Head MRI 11/11/19 00:00 IMPRESSION: NORMAL MRI OF THE BRAIN WITHOUT INTRAVENOUS GADOLINIUM CONTRAST. EVIDENCE OF ACUTE STROKE: NO. Hip X-Ray 11/11/19 00:00 IMPRESSION: NEGATIVE STUDY OF THE LEFT HIP AND PELVIS. NO RADIOGRAPHIC EVIDENCE OF ACUTE INJURY. Pelvis CT 11/25/19 00:00 IMPRESSION: 1. Large volume of stool in the colon. The rectal vault is distended with stool and there is wall thickening. Inflammation is seen extending from the anal verge/distal rectum into the soft tissues of the right buttocks with a focal fluid collection measuring 4.9 x 3.7 x 4.6 cm consistent with an abscess. No abscess is seen on the left. This process also involves the tip of the coccyx. 2. No intra-abdominal extension. 3. Midline ventral hernia containing multiple bowel loops. No obstruction. THIS REPORT CONTAINS FINDINGS THAT MAY BE CRITICAL TO PATIENT CARE: The findings were verbally discussed via telephone conference with MIGUEL GRIGGS MD at 10:41 PM BUSINESS PROCESS MODELER on 11/25/2019 . Assessment and Plan - Diagnosis (1) Alzheimer's dementia without behavioral disturbance Qualifiers: Alzheimer's disease onset: early-onset Qualified Code(s): G30.0 - Alzheimer's disease with early onset; F02.80 - Dementia in other diseases classified elsewhere without behavioral disturbance Is this a current diagnosis for this admission?: Yes Plan: Stable and at baseline (2) Bilateral perirectal abscess Is this a current diagnosis for this admission?: Yes Plan: Surgery consulted for incision and drainage, on empiric antibiotics, cultures are pending (3) SHELBIE (acute kidney injury) Is this a current diagnosis for this admission?: Yes Plan: Resolved (4) Acute metabolic encephalopathy Is this a current diagnosis for this admission?: Yes Plan: Resolved (5) Lymphedema of both lower extremities Is this a current diagnosis for this admission?: Yes Plan: Chronic and stable (6) Rhabdomyolysis Qualifiers: Rhabdomyolysis type: non-traumatic Qualified Code(s): M62.82 - Rhabdomyolysis Is this a current diagnosis for this admission?: Yes Plan: Resolved - Time Time Spent with patient: 15-24 minutes
[2019-11-28] MEDS: HYDROCODONE/ACETAMINOPHEN 5-325 MG TABLET PO PRN (18:10)
[2019-11-28] MEDS: LEVOFLOXACIN 500 MG/D5W RTU 500 MG/100 ML RTUPB IV SCH (18:37)
[2019-11-28] MEDS: BUSPIRONE HCL 10 MG TABLET PO SCH (23:22)
[2019-11-28] MEDS: MELATONIN 5 MG TABLET PO SCH (23:22)
[2019-11-29] MEDS: METRONIDAZOLE 500 MG/NS RTU 500 MG/100 ML RTUPB IV SCH ×3 (02:42→17:49)
[2019-11-29 06:33] LABS: HEMATOCRIT 21.7 % (37.9-51.0); MEAN CORPUSCULAR HGB CONC 34.3 g/dL (32.0-36.0); MEAN CORPUSCULAR VOLUME 90 fl (80-97); PLATELET COUNT 248 10^3/uL (150-450); RED CELL DISTRIBUTION WIDTH 14.8 % (11.5-14.0); WHITE BLOOD COUNT 6.7 10^3/uL (4.0-10.5)
[2019-11-29 06:44] LABS: HEMOGLOBIN 7.4 g/dL (13.5-17.0)
[2019-11-29 06:48] LABS: BLOOD UREA NITROGEN 21 mg/dL (7-20); CALCIUM 7.4 mg/dL (8.4-10.2); CHLORIDE 107 mmol/L (98-107); GLUCOSE 82 mg/dL (75-110); POTASSIUM 3.6 mmol/L (3.6-5.0)
[2019-11-29 06:51] LABS: CARBON DIOXIDE 27 mmol/L (22-30)
[2019-11-29 07:32] LABS: ANION GAP 3 (5-19)
[2019-11-29] MEDS: FAMOTIDINE 20 MG TABLET PO SCH ×2 (10:20→21:28)
[2019-11-29] MEDS: DOCUSATE SODIUM 100 MG CAPSULE PO SCH ×2 (10:20→17:49)
[2019-11-29] MEDS: DIVALPROEX SODIUM 250 MG TAB.SR.24H PO SCH ×2 (10:20→17:49)
[2019-11-29] MEDS: ENOXAPARIN SODIUM INJ 40 MG/0.4 ML DISP.SYRIN SUBCUT SCH (10:20)
--- NOTE | 2019-11-29 13:34 | PDOC PROGRESS REPORT ---
Subjective Progress Note for:: 11/29/19 Subjective:: Patient confused, alert, but cooperative, nontoxic Reason For Visit: ACUTE RESPIRATORY FAILURE WITH HYPOXIA AND Physical Exam Vital Signs: Temp Pulse Resp BP Pulse Ox 97.5 F 84 20 106/68 100 11/29/19 11:06 11/29/19 11:06 11/29/19 11:06 11/29/19 11:06 11/29/19 11:06 Intake & Output 11/28/19 11/29/19 11/30/19 06:59 06:59 06:59 Intake Total 2984 1180 100 Output Total 850 900 Balance 2134 280 100 Weight 112.2 kg 112.6 kg General appearance: PRESENT: no acute distress, cooperative, obese Rectal exam: PRESENT: other - Sacral area = surgery debrided pressure sore and abscess are granulating, no odor, minimal drainage, no erythema of the edges Skin exam: PRESENT: warm Results Laboratory Results: 11/29/19 05:49 11/29/19 05:49 11/29/19 11/29/19 05:49 05:49 WBC 6.7 RBC 2.40 L Hgb 7.4 L D Hct 21.7 L MCV 90 MCH 31.0 MCHC 34.3 RDW 14.8 H Plt Count 248 Sodium 137.3 Potassium 3.6 Chloride 107 Carbon Dioxide 27 Anion Gap 3 L BUN 21 H Creatinine 0.82 Est GFR ( Amer) > 60 Glucose 82 Calcium 7.4 L 11/26/19 17:30 Coccyx - Decubitis Ulcer Gram Stain - Final 11/26/19 17:30 Coccyx - Decubitis Ulcer Wound Culture - Final Group B Beta Streptococcus Bacteroides Fragilis Group Peptostreptococcus Species 11/10/19 11/10/19 11/11/19 17:24 17:24 09:47 Creatine Kinase 5644 H 1323 H Troponin I 0.070 11/11/19 22:14 Creatine Kinase 956 H Troponin I Impressions: Chest X-Ray 11/10/19 17:54 IMPRESSION: Limited examination. No evidence of acute cardiopulmonary abnormality. Head CT 11/10/19 17:54 IMPRESSION: NORMAL BRAIN CT WITHOUT CONTRAST. EVIDENCE OF ACUTE STROKE: NO. Head MRI 11/11/19 00:00 IMPRESSION: NORMAL MRI OF THE BRAIN WITHOUT INTRAVENOUS GADOLINIUM CONTRAST. EVIDENCE OF ACUTE STROKE: NO. Hip X-Ray 11/11/19 00:00 IMPRESSION: NEGATIVE STUDY OF THE LEFT HIP AND PELVIS. NO RADIOGRAPHIC EVIDENCE OF ACUTE INJURY. Pelvis CT 11/25/19 00:00 IMPRESSION: 1. Large volume of stool in the colon. The rectal vault is distended with stool and there is wall thickening. Inflammation is seen extending from the anal verge/distal rectum into the soft tissues of the right buttocks with a focal fluid collection measuring 4.9 x 3.7 x 4.6 cm consistent with an abscess. No abscess is seen on the left. This process also involves the tip of the coccyx. 2. No intra-abdominal extension. 3. Midline ventral hernia containing multiple bowel loops. No obstruction. THIS REPORT CONTAINS FINDINGS THAT MAY BE CRITICAL TO PATIENT CARE: The findings were verbally discussed via telephone conference with MIGUEL GRIGGS MD at 10:41 PM MECHANIC HELPER on 11/25/2019 . Assessment & Plan - Diagnosis (1) Bilateral perirectal abscess Is this a current diagnosis for this admission?: Yes - Time Time Spent with patient: 15-24 minutes - Plan Summary Plan Summary: Assessment: Postoperative day #2 following debridement of infected sacral decubitus stage IV Surgical site granulating without odor or signs of infection Intraoperative culture significant for multiple organisms (patient currently on Flagyl and Levaquin) Plan: Apply wound VAC to the site with white and mejias sponges today
--- NOTE | 2019-11-29 17:44 | PDOC PROGRESS REPORT ---
Subjective Progress Note for:: 11/29/19 Subjective:: No adverse events overnight. He had his mitts off and was eating breakfast this morning, but the staff informed me that they had to put them back on because he continued to engage in the rather embarrassing activity which was described yesterday. His vital signs have remained stable. He has been afebrile. Reason For Visit: ACUTE RESPIRATORY FAILURE WITH HYPOXIA AND Physical Exam Vital Signs: Temp Pulse Resp BP Pulse Ox 97.5 F 84 20 106/68 100 11/29/19 11:06 11/29/19 11:06 11/29/19 11:06 11/29/19 11:06 11/29/19 11:06 Intake & Output 11/28/19 11/29/19 11/30/19 06:59 06:59 06:59 Intake Total 2984 1180 840 Output Total 850 900 Balance 2134 280 840 Weight 112.2 kg 112.6 kg General appearance: PRESENT: no acute distress, well-developed, well-nourished Respiratory exam: PRESENT: clear to auscultation jose. ABSENT: rales, rhonchi, wheezes Cardiovascular exam: PRESENT: RRR. ABSENT: diastolic murmur, rubs, systolic murmur GI/Abdominal exam: PRESENT: normal bowel sounds, soft. ABSENT: distended, guarding, mass, organolmegaly, rebound, tenderness Extremities exam: PRESENT: +2 edema - Chronic bilateral lymphedema lower extremities Neurological exam: PRESENT: alert, awake, oriented to person Skin exam: PRESENT: dry, warm, other - Various decubitus ulcers of various stages, elephantiasis skin changes of lower extremities due to chronic lymphe effie Results Laboratory Results: 11/29/19 05:49 11/29/19 05:49 11/29/19 11/29/19 05:49 05:49 WBC 6.7 RBC 2.40 L Hgb 7.4 L D Hct 21.7 L MCV 90 MCH 31.0 MCHC 34.3 RDW 14.8 H Plt Count 248 Sodium 137.3 Potassium 3.6 Chloride 107 Carbon Dioxide 27 Anion Gap 3 L BUN 21 H Creatinine 0.82 Est GFR ( Amer) > 60 Glucose 82 Calcium 7.4 L 11/26/19 17:30 Coccyx - Decubitis Ulcer Gram Stain - Final 11/26/19 17:30 Coccyx - Decubitis Ulcer Wound Culture - Final Group B Beta Streptococcus Bacteroides Fragilis Group Peptostreptococcus Species 11/10/19 11/10/19 11/11/19 17:24 17:24 09:47 Creatine Kinase 5644 H 1323 H Troponin I 0.070 11/11/19 22:14 Creatine Kinase 956 H Troponin I Impressions: Chest X-Ray 11/10/19 17:54 IMPRESSION: Limited examination. No evidence of acute cardiopulmonary ab normality. Head CT 11/10/19 17:54 IMPRESSION: NORMAL BRAIN CT WITHOUT CONTRAST. EVIDENCE OF ACUTE STROKE: NO. Head MRI 11/11/19 00:00 IMPRESSION: NORMAL MRI OF THE BRAIN WITHOUT INTRAVENOUS GADOLINIUM CONTRAST. EVIDENCE OF ACUTE STROKE: NO. Hip X-Ray 11/11/19 00:00 IMPRESSION: NEGATIVE STUDY OF THE LEFT HIP AND PELVIS. NO RADIOGRAPHIC EVIDENCE OF ACUTE INJURY. Pelvis CT 11/25/19 00:00 IMPRESSION: 1. Large volume of stool in the colon. The rectal vault is distended with stool and there is wall thickening. Inflammation is seen extending from the anal verge/distal rectum into the soft tissues of the right buttocks with a focal fluid collection measuring 4.9 x 3.7 x 4.6 cm consistent with an abscess. No abscess is seen on the left. This process also involves the tip of the coccyx. 2. No intra-abdominal extension. 3. Midline ventral hernia containing multiple bowel loops. No obstruction. THIS REPORT CONTAINS FINDINGS THAT MAY BE CRITICAL TO PATIENT CARE: The findings were verbally discussed via telephone conference with MIGUEL GRIGGS MD at 10:41 PM PRIMARY CARE PROVIDER on 11/25/2019 . Assessment and Plan - Diagnosis (1) Alzheimer's dementia without behavioral disturbance Qualifiers: Alzheimer's disease onset: early-onset Qualified Code(s): G30.0 - Alz heimer's disease with early onset; F02.80 - Dementia in other diseases classified elsewhere without behavioral disturbance Is this a current diagnosis for this admission?: Yes Plan: Stable and at baseline (2) Bilateral perirectal abscess Is this a current diagnosis for this admission?: Yes Plan: Surgery consulted for incision and drainage, continue Levaquin and Flagyl based on culture results. (3) SHELBIE (acute kidney injury) Is this a current diagnosis for this admission?: Yes Plan: Resolved (4) Acute metabolic encephalopathy Is this a current diagnosis for this admission?: Yes Plan: Resolved (5) Lymphedema of both lower extremities Is this a current diagnosis for this admission?: Yes Plan: Chronic and stable (6) Rhabdomyolysis Qualifiers: Rhabdomyolysis type: non-traumatic Qualified Code(s): M62.82 - Rhabdomyolysis Is this a current diagnosis for this admission?: Yes Plan: Resolved - Time Time Spent with patient: 15-24 minutes
[2019-11-29] MEDS: LEVOFLOXACIN 750 MG/D5W RTU 750 MG/150 ML RTUPB IV SCH (20:06)
[2019-11-29] MEDS: BUSPIRONE HCL 10 MG TABLET PO SCH (21:27)
[2019-11-29] MEDS: MELATONIN 5 MG TABLET PO SCH (21:28)
[2019-11-30] MEDS: METRONIDAZOLE 500 MG/NS RTU 500 MG/100 ML RTUPB IV SCH ×3 (01:02→17:59)
[2019-11-30 05:47] LABS: ABSOLUTE EOSINOPHILS # (AUTO) 0.4 10^3/uL (0.0-0.6); ABSOLUTE LYMPHOCYTES (AUTO) 1.5 10^3/uL (0.5-4.7); ABSOLUTE MONOCYTES (AUTO) 0.9 10^3/uL (0.1-1.4); ABSOLUTE NEUT (AUTO) 3.7 10^3/uL (1.7-8.2); BASOPHILS % (AUTO) 0.3 % (0-2); EOSINOPHILS % (AUTO) 5.5 % (0-6); HEMATOCRIT 21.8 % (37.9-51.0); LYMPHOCYTES % (AUTO) 23.7 % (13-45); MEAN CORPUSCULAR HEMOGLOBIN 30.8 pg (27.0-33.4); MEAN CORPUSCULAR HGB CONC 34.2 g/dL (32.0-36.0); MEAN CORPUSCULAR VOLUME 90 fl (80-97); MONOCYTES % (AUTO) 13.8 % (3-13); PLATELET COUNT 251 10^3/uL (150-450); RED BLOOD COUNT 2.42 10^6/uL (4.35-5.55); RED CELL DISTRIBUTION WIDTH 14.9 % (11.5-14.0); SEGMENTED NEUTROPHILS % (AUTO) 56.7 % (42-78); TOTAL CELLS COUNTED % (AUTO) 100 %; WHITE BLOOD COUNT 6.5 10^3/uL (4.0-10.5)
[2019-11-30 05:56] LABS: HEMOGLOBIN 7.5 g/dL (13.5-17.0)
[2019-11-30 06:27] LABS: ANION GAP 5 (5-19); BLOOD UREA NITROGEN 16 mg/dL (7-20); CALCIUM 7.4 mg/dL (8.4-10.2); CARBON DIOXIDE 27 mmol/L (22-30); CHLORIDE 106 mmol/L (98-107); GLUCOSE 80 mg/dL (75-110); POTASSIUM 3.8 mmol/L (3.6-5.0)
[2019-11-30 06:42] LABS: APPEARANCE,URINE CLEAR; BILIRUBIN,URINE NEGATIVE (NEGATIVE); COLOR,URINE YELLOW; GLUCOSE, URINE NEGATIVE (NEGATIVE); KETONES,URINE NEGATIVE (NEGATIVE); LEUKOCYTE ESTERASE,URINE TRACE (NEGATIVE); NITRITE,URINE NEGATIVE (NEGATIVE); PROTEIN,URINE NEGATIVE (NEGATIVE); URINE SPECIFIC GRAVITY 1.009; UROBILINOGEN,URINE NEGATIVE mg/dL (<2.0)
[2019-11-30] MEDS: HYDROCODONE/ACETAMINOPHEN 5-325 MG TABLET PO PRN ×3 (07:42→21:33)
[2019-11-30] MEDS ORDERED: ACETAMINOPHEN 325 MG TABLET PO PRN (08:18)
--- NOTE | 2019-11-30 09:14 | PDOC PROGRESS REPORT ---
Subjective Progress Note for:: 11/30/19 Subjective:: pt comfortable Reason For Visit: ACUTE RESPIRATORY FAILURE WITH HYPOXIA AND Physical Exam Vital Signs: Temp Pulse Resp BP Pulse Ox 98.6 F 80 17 91/55 L 100 11/29/19 19:56 11/29/19 19:56 11/29/19 19:56 11/29/19 19:56 11/29/19 19:56 Intake & Output 11/29/19 11/30/19 12/01/19 06:59 06:59 06:59 Intake Total 1180 1634 Output Total 900 1175 Balance 280 459 Weight 112.6 kg 110.9 kg General appearance: PRESENT: no acute distress Head exam: PRESENT: normocephalic Eye exam: PRESENT: EOMI Ear exam: PRESENT: normal external ear exam Mouth exam: PRESENT: moist Neck exam: PRESENT: full ROM Respiratory exam: PRESENT: clear to auscultation jose Cardiovascular exam: PRESENT: RRR Pulses: PRESENT: normal femoral pulses GI/Abdominal exam: PRESENT: soft Rectal exam: PRESENT: deferred Extremities exam: PRESENT: full ROM Musculoskeletal exam: PRESENT: full ROM Neurological exam: PRESENT: alert, awake Psychiatric exam: PRESENT: appropriate affect Skin exam: PRESENT: dry Results Laboratory Results: 11/30/19 04:54 11/30/19 04:54 11/30/19 11/30/19 11/30/19 04:54 04:54 05:15 WBC 6.5 RBC 2.42 L Hgb 7.5 L Hct 21.8 L MCV 90 MCH 30.8 MCHC 34.2 RDW 14.9 H Plt Count 251 Seg Neutrophils % 56.7 Sodium 138.2 Potassium 3.8 Chloride 106 Carbon Dioxide 27 Anion Gap 5 BUN 16 Creatinine 0.78 Est GFR ( Amer) > 60 Glucose 80 Calcium 7.4 L Urine Color YELLOW Urine Appearance CLEAR Urine pH 5.0 Ur Specific [place] 1.009 Urine Protein NEGATIVE Urine Glucose (UA) NEGATIVE Urine Ketones NEGATIVE Urine Blood MODERATE H Urine Nitrite NEGATIVE Ur Leukocyte Esterase TRACE H Urine WBC (Auto) 2 Urine RBC (Auto) 9 11/26/19 17:30 Coccyx - Decubitis Ulcer Gram Stain - Final 11/26/19 17:30 Coccyx - Decubitis Ulcer Wound Culture - Final Group B Beta Streptococcus Bacteroides Fragilis Group Peptostreptococcus Species 11/10/19 11/10/1920 17:24 17:24 09:47 Creatine Kinase 5644 H 1323 H Troponin I 0.070 11/11/19 22:14 Creatine Kinase 956 H Troponin I Impressions: Chest X-Ray 11/10/19 17:54 IMPRESSION: Limited examination. No evidence of acute cardiopulmonary abnormality. Head CT 11/10/19 17:54 IMPRESSION: NORMAL BRAIN CT WITHOUT CONTRAST. EVIDENCE OF ACUTE STROKE: NO. Head MRI 11/11/19 00:00 IMPRESSION: NORMAL MRI OF THE BRAIN WITHOUT INTRAVENOUS GADOLINIUM CONTRAST. EVIDENCE OF ACUTE STROKE: NO. Hip X-Ray 11/11/19 00:00 IMPRESSION: NEGATIVE STUDY OF THE LEFT HIP AND PELVIS. NO RADIOGRAPHIC EVIDENCE OF ACUTE INJURY. Pelvis CT 11/25/19 00:00 IMPRESSION: 1. Large volume of stool in the colon. The rectal vault is distended with stool and there is wall thickening. Inflammation is seen extending from the anal verge/distal rectum into the soft tissues of the right buttocks with a focal fluid collection measuring 4.9 x 3.7 x 4.6 cm consistent with an abscess. No abscess is seen on the left. This process also involves the tip of the coccyx. 2. No intra-abdominal extension. 3. Midline ventral hernia containing multiple bowel loops. No obstruction. THIS REPORT CONTAINS FINDINGS THAT MAY BE CRITICAL TO PATIENT CARE: The findings were verbally discussed via telephone conference with MIGUEL GRIGGS MD at 10:41 PM TENTER on 11/25/2019 . Assessment & Plan - Time Time Spent with patient: 35 or more minutes - Plan Summary Plan Summary: s/p debridement of large sacral decubti wound vac placed yesterday will change mon,wed, fri
[2019-11-30] MEDS: DIVALPROEX SODIUM 250 MG TAB.SR.24H PO SCH ×2 (10:12→17:59)
[2019-11-30] MEDS: DOCUSATE SODIUM 100 MG CAPSULE PO SCH ×2 (10:12→17:59)
[2019-11-30] MEDS: FAMOTIDINE 20 MG TABLET PO SCH ×2 (10:12→21:33)
[2019-11-30] MEDS: ENOXAPARIN SODIUM INJ 40 MG/0.4 ML DISP.SYRIN SUBCUT SCH (11:28)
--- NOTE | 2019-11-30 17:00 | PDOC PROGRESS REPORT ---
Subjective Progress Note for:: 11/30/19 Subjective:: No acute event overnight. Patient denies any complaints encounter. Denies chest pain or shortness of breath. Minimal output from the wound VAC. Patient is awaiting placement. Reason For Visit: ACUTE RESPIRATORY FAILURE WITH HYPOXIA AND Physical Exam Vital Signs: Temp Pulse Resp BP Pulse Ox 97.5 F 77 20 112/67 100 11/30/19 10:58 11/30/19 10:58 11/30/19 10:58 11/30/19 10:58 11/30/19 10:58 Intake & Output 11/29/19 11/30/19 12/01/19 06:59 06:59 06:59 Intake Total 1180 1634 Output Total 900 1175 Balance 280 459 Weight 248 lb 3.848 oz 244 lb 7.882 oz 244 lb 7.882 oz General appearance: PRESENT: no acute distress, well-developed, well-nourished Head exam: PRESENT: atraumatic, normocephalic Eye exam: PRESENT: conjunctiva pink, EOMI, PERRLA. ABSENT: scleral icterus Ear exam: PRESENT: normal external ear exam Mouth exam: PRESENT: moist, tongue midline Neck exam: ABSENT: carotid bruit, JVD, lymphadenopathy, thyromegaly Respiratory exam: PRESENT: clear to auscultation jose. ABSENT: rales, rhonchi, wheezes Cardiovascular exam: PRESENT: RRR. ABSENT: diastolic murmur, rubs, systolic murmur GI/Abdominal exam: PRESENT: normal bowel sounds, soft. ABSENT: distended, guarding, mass, organolmegaly, rebound, tenderness Rectal exam: PRESENT: deferred Extremities exam: PRESENT: +2 edema Neurological exam: PRESENT: alert, awake, oriented to person, oriented to place, CN II-XII grossly intact. ABSENT: motor sensory deficit Results Laboratory Results: 11/30/19 04:54 11/30/19 04:54 11/30/19 11/30/19 11/30/19 04:54 04:54 05:15 WBC 6.5 RBC 2.42 L Hgb 7.5 L Hct 21.8 L MCV 90 MCH 30.8 MCHC 34.2 RDW 14.9 H Plt Count 251 Seg Neutrophils % 56.7 Sodium 138.2 Potassium 3.8 Chloride 106 Carbon Dioxide 27 Anion Gap 5 BUN 16 Creatinine 0.78 Est GFR ( Amer) > 60 Glucose 80 Calcium 7.4 L Urine Color YELLOW Urine Appearance CLEAR Urine pH 5.0 Ur Specific [place] 1.009 Urine Protein NEGATIVE Urine Glucose (UA) NEGATIVE Urine Ketones NEGATIVE Urine Blood MODERATE H Urine Nitrite NEGATIVE Ur Leukocyte Esterase TRACE H Urine WBC (Auto) 2 Urine RBC (Auto) 9 11/26/19 17:30 Coccyx - Decubitis Ulcer Gram Stain - Final 11/26/19 17:30 Coccyx - Decubitis Ulcer Wound Culture - Final Group B Beta Streptococcus Bacteroides Fragilis Group Peptostreptococcus Species 11/10/19 11/10/19 11/11/19 17:24 17:24 09:47 Creatine Kinase 5644 H 1323 H Troponin I 0.070 11/11/19 22:14 Creatine Kinase 956 H Troponin I Impressions: Chest X-Ray 11/10/19 17:54 IMPRESSION: Limited examination. No evidence of acute cardiopulmonary abnormality. Head CT 11/10/19 17:54 IMPRESSION: NORMAL BRAIN CT WITHOUT CONTRAST. EVIDENCE OF ACUTE STROKE: NO. Head MRI 11/11/19 00:00 IMPRESSION: NORMAL MRI OF THE BRAIN WITHOUT INTRAVENOUS GADOLINIUM CONTRAST. EVIDENCE OF ACUTE STROKE: NO. Hip X-Ray 11/11/19 00:00 IMPRESSION: NEGATIVE STUDY OF THE LEFT HIP AND PELVIS. NO RADIOGRAPHIC EVIDENCE OF ACUTE INJURY. Pelvis CT 11/25/19 00:00 IMPRESSION: 1. Large volume of stool in the colon. The rectal vault is distended with stool and there is wall thickening. Inflammation is seen extending from the anal verge/distal rectum into the soft tissues of the right buttocks with a focal fluid collection measuring 4.9 x 3.7 x 4.6 cm consistent with an abscess. No abscess is seen on the left. This process also involves the tip of the coccyx. 2. No intra-abdominal extension. 3. Midline ventral hernia containing multiple bowel loops. No obstruction. THIS REPORT CONTAINS FINDINGS THAT MAY BE CRITICAL TO PATIENT CARE: The findings were verbally discussed via telephone conference with MIGUEL GRIGGS MD at 10:41 PM MANAGER NEONATAL on 11/25/2019 . Assessment and Plan - Diagnosis (1) Sacral decubitus ulcer Qualifiers: Pressure injury stage: stage 4 Qualified Code(s): L89.154 - Pressure ulcer of sacral region, stage 4 Is this a current diagnosis for this admission?: Yes Plan: S/P Sacral pressure full thickness debridment to bone, incision drainage of right gluteal abscess on 11/26. S/P wound vac placement on 11/29. (2) Acute metabolic encephalopathy Is this a current diagnosis for this admission?: Yes Plan: Resolved. (3) Acute renal failure Qualifiers: Acute renal failure type: unspecified Qualified Code(s): N17.9 - Acute kidney failure, unspecified Is this a current diagnosis for this admission?: Yes Plan: Resolved. (4) Lymphedema of both lower extremities Is this a current diagnosis for this admission?: Yes (5) Seizure-like activity Is this a current diagnosis for this admission?: Yes Plan: Suspected to be an isolated seizure activity precipitated by Wellbutrin in the setting of acute renal failure.
[2019-11-30] MEDS: LEVOFLOXACIN 750 MG/D5W RTU 750 MG/150 ML RTUPB IV SCH (20:10)
[2019-11-30] MEDS: MELATONIN 5 MG TABLET PO SCH (21:33)
[2019-11-30] MEDS: BUSPIRONE HCL 10 MG TABLET PO SCH (21:33)
[2019-12-01] MEDS: METRONIDAZOLE 500 MG/NS RTU 500 MG/100 ML RTUPB IV SCH ×2 (01:26→09:04)
[2019-12-01 05:30] LABS: ABSOLUTE EOSINOPHILS # (AUTO) 0.3 10^3/uL (0.0-0.6); ABSOLUTE NEUT (AUTO) 4.9 10^3/uL (1.7-8.2); BASOPHILS % (AUTO) 0.2 % (0-2); EOSINOPHILS % (AUTO) 4.1 % (0-6); LYMPHOCYTES % (AUTO) 24.4 % (13-45); MEAN CORPUSCULAR HEMOGLOBIN 31.6 pg (27.0-33.4); MEAN CORPUSCULAR HGB CONC 34.7 g/dL (32.0-36.0); MEAN CORPUSCULAR VOLUME 91 fl (80-97); MONOCYTES % (AUTO) 11.7 % (3-13); PLATELET COUNT 265 10^3/uL (150-450); RED BLOOD COUNT 2.43 10^6/uL (4.35-5.55); SEGMENTED NEUTROPHILS % (AUTO) 59.6 % (42-78); TOTAL CELLS COUNTED % (AUTO) 100 %; WHITE BLOOD COUNT 8.3 10^3/uL (4.0-10.5)
[2019-12-01 05:36] LABS: HEMOGLOBIN 7.7 g/dL (13.5-17.0)
[2019-12-01 05:46] LABS: BLOOD UREA NITROGEN 14 mg/dL (7-20); CALCIUM 7.5 mg/dL (8.4-10.2); CARBON DIOXIDE 28 mmol/L (22-30); CHLORIDE 106 mmol/L (98-107); GLUCOSE 80 mg/dL (75-110); POTASSIUM 3.9 mmol/L (3.6-5.0)
[2019-12-01 06:00] LABS: ANION GAP 4 (5-19)
[2019-12-01] MEDS: DOCUSATE SODIUM 100 MG CAPSULE PO SCH ×2 (09:04→17:07)
[2019-12-01] MEDS: ENOXAPARIN SODIUM INJ 40 MG/0.4 ML DISP.SYRIN SUBCUT SCH (09:05)
[2019-12-01] MEDS: DIVALPROEX SODIUM 250 MG TAB.SR.24H PO SCH ×2 (09:05→17:07)
[2019-12-01] MEDS: FAMOTIDINE 20 MG TABLET PO SCH ×2 (09:05→21:40)
[2019-12-01] MEDS: METRONIDAZOLE 500 MG TABLET PO SCH ×2 (14:05→21:40)
--- NOTE | 2019-12-01 15:09 | PDOC PROGRESS REPORT ---
Subjective Progress Note for:: 12/01/19 Subjective:: 11/30: No acute event overnight. Patient denies any complaints encounter. Denies chest pain or shortness of breath. Minimal output from the wound VAC. 12/01: No acute issues. Patient denies acute complaints. Possible replacement of wound VAC today by surgery. Patient is awaiting placement. Reason For Visit: ACUTE RESPIRATORY FAILURE WITH HYPOXIA AND Physical Exam Vital Signs: Temp Pulse Resp BP Pulse Ox 98.3 F 77 16 106/61 100 12/01/19 07:51 12/01/19 07:51 12/01/19 07:51 12/01/19 07:51 12/01/19 07:51 Intake & Output 11/30/19 12/01/19 12/02/19 06:59 06:59 06:59 Intake Total 1634 1924 520 Output Total 1175 3500 1250 Balance 459 -7206 -730 Weight 244 lb 7.882 oz 246 lb 11.156 oz General appearance: PRESENT: no acute distress, well-developed, well-nourished Head exam: PRESENT: atraumatic, normocephalic Eye exam: PRESENT: conjunctiva pink, EOMI, PERRLA. ABSENT: scleral icterus Ear exam: PRESENT: normal external ear exam Mouth exam: PRESENT: moist, tongue midline Neck exam: ABSENT: carotid bruit, JVD, lymphadenopathy, thyromegaly Respiratory exam: PRESENT: clear to auscultation jose. ABSENT: rales, rhonchi, wheezes Cardiovascular exam: PRESENT: RRR. ABSENT: diastolic murmur, rubs, systolic murmur Pulses: PRESENT: normal dorsalis pedis pul GI/Abdominal exam: PRESENT: normal bowel sounds, soft. ABSENT: distended, guarding, mass, organolmegaly, rebound, tenderness Rectal exam: PRESENT: deferred Extremities exam: PRESENT: +2 edema Neurological exam: PRESENT: alert, awake, oriented to person, oriented to place, oriented to time, oriented to situation, CN II-XII grossly intact. ABSENT: motor sensory deficit Results Laboratory Results: 12/01/19 04:08 12/01/19 04:08 12/01/19 12/01/19 04:08 04:08 WBC 8.3 RBC 2.43 L Hgb 7.7 L Hct 22.0 L MCV 91 MCH 31.6 MCHC 34.7 RDW 15.0 H Plt Count 265 Seg Neutrophils % 59.6 Sodium 137.9 Potassium 3.9 Chloride 106 Carbon Dioxide 28 Anion Gap 4 L BUN 14 Creatinine 0.79 Est GFR ( Amer) > 60 Glucose 80 Calcium 7.5 L 11/10/19 11/10/19 11/11/19 17:24 17:24 09:47 Creatine Kinase 5644 H 1323 H Troponin I 0.070 11/11/19 22:14 Creatine Kinase 956 H Troponin I Impressions: Chest X-Ray 11/10/19 17:54 IMPRESSION: Limited examination. No evidence of acute cardiopulmonary abnormality. Head CT 11/10/19 17:54 IMPRESSION: NORMAL BRAIN CT WITHOUT CONTRAST. EVIDENCE OF ACUTE STROKE: NO. Head MRI 11/11/19 00:00 IMPRESSION: NORMAL MRI OF THE BRAIN WITHOUT INTRAVENOUS GADOLINIUM CONTRAST. EVIDENCE OF ACUTE STROKE: NO. Hip X-Ray 11/11/19 00:00 IMPRESSION: NEGATIVE STUDY OF THE LEFT HIP AND PELVIS. NO RADIOGRAPHIC EVIDENCE OF ACUTE INJURY. Pelvis CT 11/25/19 00:00 IMPRESSION: 1. Large volume of stool in the colon. The rectal vault is distended with stool and there is wall thickening. Inflammation is seen extending from the anal verge/distal rectum into the soft tissues of the right buttocks with a focal fluid collection measuring 4.9 x 3.7 x 4.6 cm consistent with an abscess. No abscess is seen on the left. This process also involves the tip of the coccyx. 2. No intra-abdominal extension. 3. Midline ventral hernia containing multiple bowel loops. No obstruction. THIS REPORT CONTAINS FINDINGS THAT MAY BE CRITICAL TO PATIENT CARE: The findings were verbally discussed via telephone conference with MIGUEL GRIGGS MD at 10:41 PM REVIEW ASSISTANT on 11/25/2019 . Assessment and Plan - Diagnosis (1) Sacral decubitus ulcer Qualifiers: Pressure injury stage: stage 4 Qualified Code(s): L89.154 - Pressure ulcer of sacral region, stage 4 Is this a current diagnosis for this admission?: Yes Plan: S/P Sacral pressure full thickness debridment to bone, incision drainage of right gluteal abscess on 11/26. S/P wound vac placement on 11/29. (2) Acute metabolic encephalopathy Is this a current diagnosis for this admission?: Yes Plan: Resolved. (3) Acute renal failure Qualifiers: Acute renal failure type: unspecified Qualified Code(s): N17.9 - Acute kidney failure, unspecified Is this a current diagnosis for this admission?: Yes Plan: Resolved. (4) Lymphedema of both lower extremities Is this a current diagnosis for this admission?: Yes (5) Seizure-like activity Is this a current diagnosis for this admission?: Yes Plan: Suspected to be an isolated seizure activity precipitated by Wellbutrin in the setting of acute renal failure. - Time Time Spent with patient: 25-34 minutes
--- NOTE | 2019-12-01 15:15 | PDOC PROGRESS REPORT ---
Subjective Progress Note for:: 12/01/19 Reason For Visit: ACUTE RESPIRATORY FAILURE WITH HYPOXIA AND Physical Exam Vital Signs: Temp Pulse Resp BP Pulse Ox 98.3 F 77 16 106/61 100 12/01/19 07:51 12/01/19 07:51 12/01/19 07:51 12/01/19 07:51 12/01/19 07:51 Intake & Output 11/30/19 12/01/19 12/02/19 06:59 06:59 06:59 Intake Total 1634 1924 520 Output Total 1175 3500 1250 Balance 757 -6112 -545 Weight 110.9 kg 111.9 kg Results Laboratory Results: 12/01/19 04:08 12/01/19 04:08 12/01/19 12/01/19 04:08 04:08 WBC 8.3 RBC 2.43 L Hgb 7.7 L Hct 22.0 L MCV 91 MCH 31.6 MCHC 34.7 RDW 15.0 H Plt Count 265 Seg Neutrophils % 59.6 Sodium 137.9 Potassium 3.9 Chloride 106 Carbon Dioxide 28 Anion Gap 4 L BUN 14 Creatinine 0.79 Est GFR ( Amer) > 60 Glucose 80 Calcium 7.5 L 11/10/19 11/10/19 11/11/19 17:24 17:24 09:47 Creatine Kinase 5644 H 1323 H Troponin I 0.070 11/11/19 22:14 Creatine Kinase 956 H Troponin I Impressions: Chest X-Ray 11/10/19 17:54 IMPRESSION: Limited examination. No evidence of acute cardiopulmonary abnormality. Head CT 11/10/19 17:54 IMPRESSION: NORMAL BRAIN CT WITHOUT CONTRAST. EVIDENCE OF ACUTE STROKE: NO. Head MRI 11/11/19 00:00 IMPRESSION: NORMAL MRI OF THE BRAIN WITHOUT INTRAVENOUS GADOLINIUM CONTRAST. EVIDENCE OF ACUTE STROKE: NO. Hip X-Ray 11/11/19 00:00 IMPRESSION: NEGATIVE STUDY OF THE LEFT HIP AND PELVIS. NO RADIOGRAPHIC EVIDENCE OF ACUTE INJURY. Pelvis CT 11/25/19 00:00 IMPRESSION: 1. Large volume of stool in the colon. The rectal vault is distended with stool and there is wall thickening. Inflammation is seen extending from the anal verge/distal rectum into the soft tissues of the right buttocks with a focal fluid collection measuring 4.9 x 3.7 x 4.6 cm consistent with an abscess. No abscess is seen on the left. This process also involves the tip of the coccyx. 2. No intra-abdominal extension. 3. Midline ventral hernia containing multiple bowel loops. No obstruction. THIS REPORT CONTAINS FINDINGS THAT MAY BE CRITICAL TO PATIENT CARE: The findings were verbally discussed via telephone conference with MIGUEL GRIGGS MD at 10:41 PM JUNIOR SALES REPRESENTATIVE on 11/25/2019 . Assessment & Plan - Diagnosis (1) Sacral decubitus ulcer, stage IV Is this a current diagnosis for this admission?: Yes - Time Time Spent with patient: Less than 15 minutes - Plan Summary Plan Summary: 58-year-old male with dementia and a large sacral decubitus. The patient has had a wound VAC on the sacrum for the last several days. I remove the wound VAC today. There is a large amount of slough with fibrinous exudate, with questionable purulence present in the wound. The wound VAC does not appear to be adequately removing the exudative process. I will switch the patient back to damp to dry dressing changes twice daily. At this time, I do not see any obviously necrotic tissue that would require debridement. Will check wound again tomorrow. Will follow.
[2019-12-01] MEDS: BUSPIRONE HCL 10 MG TABLET PO SCH (21:39)
[2019-12-01] MEDS: MELATONIN 5 MG TABLET PO SCH (21:40)
[2019-12-01] MEDS: CIPROFLOXACIN HCL 500 MG TABLET PO SCH (21:40)
[2019-12-01] MEDS: HYDROCODONE/ACETAMINOPHEN 5-325 MG TABLET PO PRN (21:40)
[2019-12-01 23:15] LABS: APPEARANCE,URINE SLIGHTLY-CLOUDY; BILIRUBIN,URINE NEGATIVE (NEGATIVE); COLOR,URINE YELLOW; GLUCOSE, URINE NEGATIVE (NEGATIVE); KETONES,URINE NEGATIVE (NEGATIVE); LEUKOCYTE ESTERASE,URINE MODERATE (NEGATIVE); NITRITE,URINE NEGATIVE (NEGATIVE); PROTEIN,URINE 30 mg/dL (NEGATIVE)
[2019-12-02] MEDS: METRONIDAZOLE 500 MG TABLET PO SCH ×3 (05:31→21:09)
[2019-12-02 06:27] LABS: BLOOD UREA NITROGEN 13 mg/dL (7-20); CALCIUM 7.6 mg/dL (8.4-10.2); GLUCOSE 75 mg/dL (75-110); POTASSIUM 3.8 mmol/L (3.6-5.0)
[2019-12-02 06:33] LABS: CARBON DIOXIDE 29 mmol/L (22-30); CHLORIDE 107 mmol/L (98-107)
[2019-12-02 06:39] LABS: ANION GAP 4 (5-19)
[2019-12-02 07:55] LABS: ABSOLUTE EOSINOPHILS # (AUTO) 0.3 10^3/uL (0.0-0.6); ABSOLUTE LYMPHOCYTES (AUTO) 1.7 10^3/uL (0.5-4.7); ABSOLUTE MONOCYTES (AUTO) 0.9 10^3/uL (0.1-1.4); ABSOLUTE NEUT (AUTO) 4.2 10^3/uL (1.7-8.2); BASOPHILS % (AUTO) 0.5 % (0-2); EOSINOPHILS % (AUTO) 4.1 % (0-6); MEAN CORPUSCULAR HEMOGLOBIN 31.5 pg (27.0-33.4); MEAN CORPUSCULAR HGB CONC 34.8 g/dL (32.0-36.0); MEAN CORPUSCULAR VOLUME 91 fl (80-97); MONOCYTES % (AUTO) 12.2 % (3-13); PLATELET COUNT 277 10^3/uL (150-450); RED BLOOD COUNT 2.54 10^6/uL (4.35-5.55); RED CELL DISTRIBUTION WIDTH 15.5 % (11.5-14.0); SEGMENTED NEUTROPHILS % (AUTO) 59.2 % (42-78); TOTAL CELLS COUNTED % (AUTO) 100 %; WHITE BLOOD COUNT 7.1 10^3/uL (4.0-10.5)
[2019-12-02] MEDS: DOCUSATE SODIUM 100 MG CAPSULE PO SCH ×2 (09:13→17:19)
[2019-12-02] MEDS: DIVALPROEX SODIUM 250 MG TAB.SR.24H PO SCH ×2 (09:13→17:18)
[2019-12-02] MEDS: FAMOTIDINE 20 MG TABLET PO SCH ×2 (09:13→21:09)
[2019-12-02] MEDS: CIPROFLOXACIN HCL 500 MG TABLET PO SCH ×2 (09:13→21:09)
[2019-12-02] MEDS: ENOXAPARIN SODIUM INJ 40 MG/0.4 ML DISP.SYRIN SUBCUT SCH (09:16)
[2019-12-02] MEDS: HYDROCODONE/ACETAMINOPHEN 5-325 MG TABLET PO PRN (11:42)
--- NOTE | 2019-12-02 12:08 | PDOC PROGRESS REPORT ---
Subjective Progress Note for:: 12/02/19 Reason For Visit: ACUTE RESPIRATORY FAILURE WITH HYPOXIA AND Physical Exam Vital Signs: Temp Pulse Resp BP Pulse Ox 98.2 F 71 16 101/66 99 12/02/19 08:00 12/02/19 08:00 12/02/19 08:00 12/02/19 08:00 12/02/19 08:00 Intake & Output 12/01/19 12/02/19 12/03/19 06:59 06:59 06:59 Intake Total 1924 960 Output Total 3505 7464 Balance -1191 -3608 Weight 111.9 kg 110.3 kg General appearance: PRESENT: no acute distress Torso Front/Back Image: 1 - Large, stage IV sacral decubitus, clean, no foul smell, all visible tissue appears viable; surrounding skin intact Rectal exam: PRESENT: other - Patient rolled her left lateral cubitus position. Stage IV sacral decubitus packed widely and effectively; all deep tissue appears viable; surrounding skin appears intact. Results Laboratory Results: 12/02/19 07:17 12/02/19 04:22 12/01/19 12/02/19 12/02/19 22:53 04:22 04:22 WBC Cancelled RBC Cancelled Hgb Cancelled Hct Cancelled MCV Cancelled MCH Cancelled MCHC Cancelled RDW Cancelled Plt Count Cancelled Seg Neutrophils % Cancelled Sodium 139.7 Potassium 3.8 Chloride 107 Carbon Dioxide 29 Anion Gap 4 L BUN 13 Creatinine 0.85 Est GFR ( Amer) > 60 Glucose 75 Calcium 7.6 L Urine Color YELLOW Urine Appearance SLIGHTLY-CLOUDY Urine pH 8.0 Ur Specific [place] 1.010 Urine Protein 30 H Urine Glucose (UA) NEGATIVE Urine Ketones NEGATIVE Urine Blood MODERATE H Urine Nitrite NEGATIVE Ur Leukocyte Esterase MODERATE H Urine WBC (Auto) 9 Urine RBC (Auto) 72 12/02/19 07:17 WBC 7.1 RBC 2.54 L Hgb 8.0 L Hct 23.0 L MCV 91 MCH 31.5 MCHC 34.8 RDW 15.5 H Plt Count 277 Seg Neutrophils % 59.2 Sodium Potassium Chloride Carbon Dioxide Anion Gap BUN Creatinine Est GFR ( Amer) Glucose Calcium Urine Color Urine Appearance Urine pH Ur Specific [place] Urine Protein Urine Glucose (UA) Urine Ketones Urine Blood Urine Nitrite Ur Leukocyte Esterase Urine WBC (Auto) Urine RBC (Auto) 11/10/19 11/10/19 11/11/19 17:24 17:24 09:47 Creatine Kinase 5644 H 1323 H Troponin I 0.070 11/11/19 22:14 Creatine Kinase 956 H Troponin I Impressions: Chest X-Ray 11/10/19 17:54 IMPRESSION: Limited examination. No evidence of acute cardiopulmonary abnormality. Head CT 11/10/19 17:54 IMPRESSION: NORMAL BRAIN CT WITHOUT CONTRAST. EVIDENCE OF ACUTE STROKE: NO. Head MRI 11/11/19 00:00 IMPRESSION: NORMAL MRI OF THE BRAIN WITHOUT INTRAVENOUS GADOLINIUM CONTRAST. EVIDENCE OF ACUTE STROKE: NO. Hip X-Ray 11/11/19 00:00 IMPRESSION: NEGATIVE STUDY OF THE LEFT HIP AND PELVIS. NO RADIOGRAPHIC EVIDENCE OF ACUTE INJURY. Pelvis CT 11/25/19 00:00 IMPRESSION: 1. Large volume of stool in the colon. The rectal vault is distended with stool and there is wall thickening. Inflammation is seen extending from the anal verge/distal rectum into the soft tissues of the right buttocks with a focal fluid collection measuring 4.9 x 3.7 x 4.6 cm consistent with an abscess. No abscess is seen on the left. This process also involves the tip of the coccyx. 2. No intra-abdominal extension. 3. Midline ventral hernia containing multiple bowel loops. No obstruction. THIS REPORT CONTAINS FINDINGS THAT MAY BE CRITICAL TO PATIENT CARE: The findings were verbally discussed via telephone conference with MIGUEL GRIGGS MD at 10:41 PM REAL ESTATE LISTING CONSULTANT on 11/25/2019 . Assessment & Plan - Diagnosis (1) Sacral decubitus ulcer, stage IV Is this a current diagnosis for this admission?: Yes Plan: Impression: Stable large sacral stage IV decubitus, status post serial debridements, with no evidence of significant residual infection or viable tissue Recommendations: 1. Continue local wound care, pressure offloading 2. Surgery will sign off at this time. Please reconsult if clinically indicated. - Time Time Spent with patient: 15-24 minutes Smoking Cessation Education: 3 to 10 minutes Medications reviewed and adjusted accordingly: Yes
[2019-12-02] MEDS ORDERED: LORAZEPAM INJ 2 MG/1 ML VIAL IV ONE (12:30)
--- NOTE | 2019-12-02 15:43 | PDOC PROGRESS REPORT ---
Subjective Progress Note for:: 12/02/19 Subjective:: 11/30: No acute event overnight. Patient denies any complaints encounter. Denies chest pain or shortness of breath. Minimal output from the wound VAC. 12/01: No acute issues. Patient denies acute complaints. Possible replacement of wound VAC today by surgery. 12/02: No acute event overnight. Patient denies acute complaints. Denies chest pain shortness of breath. Wound VAC removed by surgery today. Patient is medically ready for discharge and shows awaiting placement. Reason For Visit: ACUTE RESPIRATORY FAILURE WITH HYPOXIA AND Physical Exam Vital Signs: Temp Pulse Resp BP Pulse Ox 98.2 F 71 16 101/66 99 12/02/19 08:00 12/02/19 08:00 12/02/19 08:00 12/02/19 08:00 12/02/19 08:00 Intake & Output 12/01/19 12/02/19 12/03/19 06:59 06:59 06:59 Intake Total 1924 960 481 Output Total 3500 3675 900 Balance -1576 -2715 -419 Weight 246 lb 11.156 oz 243 lb 2.718 oz General appearance: PRESENT: no acute distress, well-developed, well-nourished Head exam: PRESENT: atraumatic, normocephalic Eye exam: PRESENT: conjunctiva pink, EOMI, PERRLA. ABSENT: scleral icterus Ear exam: PRESENT: normal external ear exam Mouth exam: PRESENT: moist, tongue midline Neck exam: ABSENT: carotid bruit, JVD, lymphadenopathy, thyromegaly Respiratory exam: PRESENT: clear to auscultation jose. ABSENT: rales, rhonchi, wheezes Cardiovascular exam: PRESENT: RRR. ABSENT: diastolic murmur, rubs, systolic murmur Pulses: PRESENT: normal dorsalis pedis pul GI/Abdominal exam: PRESENT: normal bowel sounds, soft. ABSENT: distended, guarding, mass, organolmegaly, rebound, tenderness Rectal exam: PRESENT: deferred Extremities exam: PRESENT: +2 edema Neurological exam: PRESENT: alert, awake, oriented to person Results Laboratory Results: 12/02/19 07:17 12/02/19 04:22 12/01/19 12/02/19 12/02/19 22:53 04:22 04:22 WBC Cancelled RBC Cancelled Hgb Cancelled Hct Cancelled MCV Cancelled MCH Cancelled MCHC Cancelled RDW Cancelled Plt Count Cancelled Seg Neutrophils % Cancelled Sodium 139.7 Potassium 3.8 Chloride 107 Carbon Dioxide 29 Anion Gap 4 L BUN 13 Creatinine 0.85 Est GFR ( Amer) > 60 Glucose 75 Calcium 7.6 L Urine Color YELLOW Urine Appearance SLIGHTLY-CLOUDY Urine pH 8.0 Ur Specific [place] 1.010 Urine Protein 30 H Urine Glucose (UA) NEGATIVE Urine Ketones NEGATIVE Urine Blood MODERATE H Urine Nitrite NEGATIVE Ur Leukocyte Esterase MODERATE H Urine WBC (Auto) 9 Urine RBC (Auto) 72 12/02/19 07:17 WBC 7.1 RBC 2.54 L Hgb 8.0 L Hct 23.0 L MCV 91 MCH 31.5 MCHC 34.8 RDW 15.5 H Plt Count 277 Seg Neutrophils % 59.2 Sodium Potassium Chloride Carbon Dioxide Anion Gap BUN Creatinine Est GFR ( Amer) Glucose Calcium Urine Color Urine Appearance Urine pH Ur Specific [place] Urine Protein Urine Glucose (UA) Urine Ketones Urine Blood Urine Nitrite Ur Leukocyte Esterase Urine WBC (Auto) Urine RBC (Auto) 11/10/19 11/10/19 11/11/19 17:24 17:24 09:47 Creatine Kinase 5644 H 1323 H Troponin I 0.070 11/11/19 22:14 Creatine Kinase 956 H Troponin I Impressions: Chest X-Ray 11/10/19 17:54 IMPRESSION: Limited examination. No evidence of acute cardiopulmonary abnormality. Head CT 11/10/19 17:54 IMPRESSION: NORMAL BRAIN CT WITHOUT CONTRAST. EVIDENCE OF ACUTE STROKE: NO. Head MRI 11/11/19 00:00 IMPRESSION: NORMAL MRI OF THE BRAIN WITHOUT INTRAVENOUS GADOLINIUM CONTRAST. EVIDENCE OF ACUTE STROKE: NO. Hip X-Ray 11/11/19 00:00 IMPRESSION: NEGATIVE STUDY OF THE LEFT HIP AND PELVIS. NO RADIOGRAPHIC EVIDENCE OF ACUTE INJURY. Pelvis CT 11/25/19 00:00 IMPRESSION: 1. Large volume of stool in the colon. The rectal vault is distended with stool and there is wall thickening. Inflammation is seen extending from the anal verge/distal rectum into the soft tissues of the right buttocks with a focal fluid collection measuring 4.9 x 3.7 x 4.6 cm consistent with an abscess. No abscess is seen on the left. This process also involves the tip of the coccyx. 2. No intra-abdominal extension. 3. Midline ventral hernia containing multiple bowel loops. No obstruction. THIS REPORT CONTAINS FINDINGS THAT MAY BE CRITICAL TO PATIENT CARE: The findings were verbally discussed via telephone conference with MIGUEL GRIGGS MD at 10:41 PM PHONE TECHNICIAN on 11/25/2019 . Assessment and Plan - Diagnosis (1) Sacral decubitus ulcer Qualifiers: Pressure injury stage: stage 4 Qualified Code(s): L89.154 - Pressure ulcer of sacral region, stage 4 Is this a current diagnosis for this admission?: Yes Plan: S/P Sacral pressure full thickness debridment to bone, incision drainage of right gluteal abscess on 11/26. S/P wound vac placement on 11/29. Wound vac removed on 12/01. (2) Acute metabolic encephalopathy Is this a current diagnosis for this admission?: Yes Plan: Resolved. (3) Acute renal failure Qualifiers: Acute renal failure type: unspecified Qualified Code(s): N17.9 - Acute kid madai failure, unspecified Is this a current diagnosis for this admission?: Yes Plan: Resolved. (4) Lymphedema of both lower extremities Is this a current diagnosis for this admission?: Yes (5) Seizure-like activity Is this a current diagnosis for this admission?: Yes Plan: Suspected to be an isolated seizure activity precipitated by Wellbutrin in the setting of acute renal failure. - Time Time Spent with patient: 25-34 minutes
[2019-12-02] MEDS: BUSPIRONE HCL 10 MG TABLET PO SCH (21:09)
[2019-12-02] MEDS: MELATONIN 5 MG TABLET PO SCH (21:09)
[2019-12-03 05:41] LABS: ABSOLUTE EOSINOPHILS # (AUTO) 0.2 10^3/uL (0.0-0.6); ABSOLUTE LYMPHOCYTES (AUTO) 1.8 10^3/uL (0.5-4.7); ABSOLUTE MONOCYTES (AUTO) 1.1 10^3/uL (0.1-1.4); ABSOLUTE NEUT (AUTO) 5.1 10^3/uL (1.7-8.2); BASOPHILS % (AUTO) 0.5 % (0-2); EOSINOPHILS % (AUTO) 2.9 % (0-6); HEMATOCRIT 26.3 % (37.9-51.0); HEMOGLOBIN 8.9 g/dL (13.5-17.0); LYMPHOCYTES % (AUTO) 21.5 % (13-45); MEAN CORPUSCULAR HEMOGLOBIN 31.3 pg (27.0-33.4); MEAN CORPUSCULAR VOLUME 92 fl (80-97); MONOCYTES % (AUTO) 12.8 % (3-13); PLATELET COUNT 298 10^3/uL (150-450); RED BLOOD COUNT 2.85 10^6/uL (4.35-5.55); RED CELL DISTRIBUTION WIDTH 15.7 % (11.5-14.0); SEGMENTED NEUTROPHILS % (AUTO) 62.3 % (42-78); TOTAL CELLS COUNTED % (AUTO) 100 %; WHITE BLOOD COUNT 8.2 10^3/uL (4.0-10.5)
[2019-12-03] MEDS: HYDROCODONE/ACETAMINOPHEN 5-325 MG TABLET PO PRN ×3 (05:41→21:21)
[2019-12-03] MEDS: METRONIDAZOLE 500 MG TABLET PO SCH ×3 (05:42→21:21)
[2019-12-03 06:00] LABS: BLOOD UREA NITROGEN 15 mg/dL (7-20); CALCIUM 7.8 mg/dL (8.4-10.2); GLUCOSE 71 mg/dL (75-110); POTASSIUM 3.7 mmol/L (3.6-5.0)
[2019-12-03 06:06] LABS: ANION GAP 5 (5-19); CARBON DIOXIDE 30 mmol/L (22-30); CHLORIDE 105 mmol/L (98-107)
[2019-12-03] MEDS: FAMOTIDINE 20 MG TABLET PO SCH ×2 (09:29→21:21)
[2019-12-03] MEDS: DOCUSATE SODIUM 100 MG CAPSULE PO SCH ×2 (09:29→17:22)
[2019-12-03] MEDS: DIVALPROEX SODIUM 250 MG TAB.SR.24H PO SCH ×2 (09:29→17:22)
[2019-12-03] MEDS: CIPROFLOXACIN HCL 500 MG TABLET PO SCH ×2 (09:29→21:21)
[2019-12-03] MEDS: ENOXAPARIN SODIUM INJ 40 MG/0.4 ML DISP.SYRIN SUBCUT SCH (09:30)
--- NOTE | 2019-12-03 15:51 | PDOC PROGRESS REPORT ---
Subjective Progress Note for:: 12/03/19 Subjective:: 11/30: No acute event overnight. Patient denies any complaints encounter. Denies chest pain or shortness of breath. Minimal output from the wound VAC. 12/01: Patient denies acute complaints. Possible replacement of wound VAC today by surgery. 12/02: Patient denies acute complaints. Denies chest pain shortness of breath. Wound VAC removed by surgery today. Patient is medically ready for discharge and shows awaiting placement. 12/03: No acute event overnight. Denies acute complaints. Patient is still awaiting placement. Reason For Visit: ACUTE RESPIRATORY FAILURE WITH HYPOXIA AND Physical Exam Vital Signs: Temp Pulse Resp BP Pulse Ox 97.4 F 70 18 113/82 100 12/03/19 07:50 12/03/19 07:50 12/03/19 07:50 12/03/19 07:50 12/03/19 07:50 Intake & Output 12/02/19 12/03/19 12/04/19 06:59 06:59 06:59 Intake Total 960 1771 Output Total 3675 3600 700 Balance -2715 -1829 -700 Weight 243 lb 2.718 oz 228 lb 13.437 oz General appearance: PRESENT: no acute distress, well-developed, well-nourished Head exam: PRESENT: atraumatic, normocephalic Eye exam: PRESENT: conjunctiva pink, EOMI, PERRLA. ABSENT: scleral icterus Ear exam: PRESENT: normal external ear exam Mouth exam: PRESENT: moist, tongue midline Neck exam: ABSENT: carotid bruit, JVD, lymphadenopathy, thyromegaly Respiratory exam: PRESENT: clear to auscultation jose. ABSENT: rales, rhonchi, wheezes Cardiovascular exam: PRESENT: RRR. ABSENT: diastolic murmur, rubs, systolic murmur Pulses: PRESENT: normal dorsalis pedis pul GI/Abdominal exam: PRESENT: normal bowel sounds, soft. ABSENT: distended, guarding, mass, organolmegaly, rebound, tenderness Rectal exam: PRESENT: deferred Neurological exam: PRESENT: alert, awake, oriented to person, CN II-XII grossly intact. ABSENT: motor sensory deficit Results Laboratory Results: 12/03/19 03:40 12/03/19 03:40 02/14/20 02/14/20 03:40 03:40 WBC 8.2 RBC 2.85 L Hgb 8.9 L Hct 26.3 L MCV 92 MCH 31.3 MCHC 34.0 RDW 15.7 H Plt Count 298 Seg Neutrophils % 62.3 Sodium 139.9 Potassium 3.7 Chloride 105 Carbon Dioxide 30 Anion Gap 5 BUN 15 Creatinine 0.92 Est GFR ( Amer) > 60 Glucose 71 L Calcium 7.8 L 11/10/19 11/10/19 11/11/19 17:24 17:24 09:47 Creatine Kinase 5644 H 1323 H Troponin I 0.070 11/11/19 22:14 Creatine Kinase 956 H Troponin I Impressions: Chest X-Ray 11/10/19 17:54 IMPRESSION: Limited examination. No evidence of acute cardiopulmonary abnormality. Head CT 11/10/19 17:54 IMPRESSION: NORMAL BRAIN CT WITHOUT CONTRAST. EVIDENCE OF ACUTE STROKE: NO. Head MRI 11/11/19 00:00 IMPRESSION: NORMAL MRI OF THE BRAIN WITHOUT INTRAVENOUS GADOLINIUM CONTRAST. EVIDENCE OF ACUTE STROKE: NO. Hip X-Ray 11/11/19 00:00 IMPRESSION: NEGATIVE STUDY OF THE LEFT HIP AND PELVIS. NO RADIOGRAPHIC EVIDENCE OF ACUTE INJURY. Pelvis CT 11/25/19 00:00 IMPRESSION: 1. Large volume of stool in the colon. The rectal vault is distended with stool and there is wall thickening. Inflammation is seen extending from the anal verge/distal rectum into the soft tissues of the right buttocks with a focal fluid collection measuring 4.9 x 3.7 x 4.6 cm consistent with an abscess. No abscess is seen on the left. This process also involves the tip of the coccyx. 2. No intra-abdominal extension. 3. Midline ventral hernia containing multiple bowel loops. No obstruction. THIS REPORT CONTAINS FINDINGS THAT MAY BE CRITICAL TO PATIENT CARE: The findings were verbally discussed via telephone conference with MIGUEL GRIGGS MD at 10:41 PM CERTIFIED OPHTHALMIC TECHNOLOGIST on 11/25/2019 . Assessment and Plan - Diagnosis (1) Sacral decubitus ulcer Qualifiers: Pressure injury stage: stage 4 Qualified Code(s): L89.154 - Pressure ulcer of sacral region, stage 4 Is this a current diagnosis for this admission?: Yes Plan: S/P Sacral pressure full thickness debridment to bone, incision drainage of right gluteal abscess on 11/26. S/P wound vac placement on 11/29. Wound vac removed on 12/01. (2) Acute metabolic encephalopathy Is this a current diagnosis for this admission?: Yes Plan: Resolved. (3) Acute renal failure Qualifiers: Acute renal failure type: unspecified Qualified Code(s): N17.9 - Acute kid madai failure, unspecified Is this a current diagnosis for this admission?: Yes Plan: Resolved. (4) Lymphedema of both lower extremities Is this a current diagnosis for this admission?: Yes Plan: Must have follow-up with wound clinic PT/OT consulted: Recommended SNF Patient has severe longstanding debility and disability; suspect he has not walked in a very long time given the pressure ulcers he came in the hospital with on admission (5) Seizure-like activity Is this a current diagnosis for this admission?: Yes Plan: Suspected to be an isolated seizure activity precipitated by Wellbutrin in the setting of acute renal failure. - Time Time Spent with patient: 15-24 minutes
[2019-12-03] MEDS: POLYETHYLENE GLYCOL 3350 POWDER 17 GM/1 PACKET PO PRN (17:22)
[2019-12-03] MEDS: MELATONIN 5 MG TABLET PO SCH (21:21)
[2019-12-03] MEDS: BUSPIRONE HCL 10 MG TABLET PO SCH (21:21)
[2019-12-04] MEDS: TRAZODONE HCL 50 MG TABLET PO PRN ×2 (01:45→22:09)
[2019-12-04 03:12] LABS: APPEARANCE,URINE CLEAR; BILIRUBIN,URINE NEGATIVE (NEGATIVE); COLOR,URINE YELLOW; GLUCOSE, URINE NEGATIVE (NEGATIVE); KETONES,URINE NEGATIVE (NEGATIVE); LEUKOCYTE ESTERASE,URINE TRACE (NEGATIVE); NITRITE,URINE NEGATIVE (NEGATIVE); PROTEIN,URINE NEGATIVE (NEGATIVE); URINE SPECIFIC GRAVITY 1.008; UROBILINOGEN,URINE NEGATIVE mg/dL (<2.0)
[2019-12-04] MEDS: METRONIDAZOLE 500 MG TABLET PO SCH ×3 (05:32→22:09)
[2019-12-04] MEDS: HYDROCODONE/ACETAMINOPHEN 5-325 MG TABLET PO PRN ×3 (05:32→18:19)
[2019-12-04 06:06] LABS: ABSOLUTE EOSINOPHILS # (AUTO) 0.2 10^3/uL (0.0-0.6); ABSOLUTE LYMPHOCYTES (AUTO) 1.9 10^3/uL (0.5-4.7); ABSOLUTE MONOCYTES (AUTO) 1.3 10^3/uL (0.1-1.4); ABSOLUTE NEUT (AUTO) 5.7 10^3/uL (1.7-8.2); BASOPHILS % (AUTO) 0.4 % (0-2); EOSINOPHILS % (AUTO) 2.2 % (0-6); HEMATOCRIT 25.3 % (37.9-51.0); HEMOGLOBIN 8.6 g/dL (13.5-17.0); LYMPHOCYTES % (AUTO) 20.7 % (13-45); MEAN CORPUSCULAR HEMOGLOBIN 31.4 pg (27.0-33.4); MEAN CORPUSCULAR HGB CONC 34.1 g/dL (32.0-36.0); MEAN CORPUSCULAR VOLUME 92 fl (80-97); MONOCYTES % (AUTO) 14.2 % (3-13); PLATELET COUNT 287 10^3/uL (150-450); RED BLOOD COUNT 2.75 10^6/uL (4.35-5.55); RED CELL DISTRIBUTION WIDTH 16.3 % (11.5-14.0); SEGMENTED NEUTROPHILS % (AUTO) 62.5 % (42-78); TOTAL CELLS COUNTED % (AUTO) 100 %; WHITE BLOOD COUNT 9.1 10^3/uL (4.0-10.5)
[2019-12-04 06:31] LABS: ANION GAP 7 (5-19); BLOOD UREA NITROGEN 18 mg/dL (7-20); CALCIUM 7.6 mg/dL (8.4-10.2); CARBON DIOXIDE 27 mmol/L (22-30); CHLORIDE 104 mmol/L (98-107); GLUCOSE 85 mg/dL (75-110)
[2019-12-04] MEDS: CIPROFLOXACIN HCL 500 MG TABLET PO SCH ×2 (10:55→22:09)
[2019-12-04] MEDS: DOCUSATE SODIUM 100 MG CAPSULE PO SCH ×2 (10:59→18:19)
[2019-12-04] MEDS: FAMOTIDINE 20 MG TABLET PO SCH ×2 (10:59→22:09)
[2019-12-04] MEDS: ENOXAPARIN SODIUM INJ 40 MG/0.4 ML DISP.SYRIN SUBCUT SCH (10:59)
[2019-12-04] MEDS: DIVALPROEX SODIUM 250 MG TAB.SR.24H PO SCH ×2 (10:59→18:20)
--- NOTE | 2019-12-04 14:48 | PDOC PROGRESS REPORT ---
Subjective Progress Note for:: 12/04/19 Subjective:: 11/30: No acute event overnight. Patient denies any complaints encounter. Denies chest pain or shortness of breath. Minimal output from the wound VAC. 12/01: Patient denies acute complaints. Possible replacement of wound VAC today by surgery. 12/02: Patient denies acute complaints. Denies chest pain shortness of breath. Wound VAC removed by surgery today. Patient is medically ready for discharge and shows awaiting placement. 12/03: No acute event overnight. Denies acute complaints. Patient is still awaiting placement. 12/04: No acute issues. Patient denies acute complaints. Denies chest pain shortness of breath. Patient is still awaiting placement. Reason For Visit: ACUTE RESPIRATORY FAILURE WITH HYPOXIA AND Physical Exam Vital Signs: Temp Pulse Resp BP Pulse Ox 98.2 F 91 18 123/79 99 12/04/19 08:27 12/04/19 08:27 12/04/19 08:27 12/04/19 08:27 12/04/19 08:27 Intake & Output 12/03/19 12/04/19 12/05/19 06:59 06:59 06:59 Intake Total 1771 150 Output Total 3600 2285 Balance -1829 -2135 Weight 228 lb 13.437 oz 240 lb 4.862 oz General appearance: PRESENT: no acute distress, well-developed, well-nourished Head exam: PRESENT: atraumatic, normocephalic Eye exam: PRESENT: conjunctiva pink, EOMI, PERRLA. ABSENT: scleral icterus Ear exam: PRESENT: normal external ear exam Mouth exam: PRESENT: moist, tongue midline Neck exam: ABSENT: carotid bruit, JVD, lymphadenopathy, thyromegaly Respiratory exam: PRESENT: clear to auscultation jose. ABSENT: rales, rhonchi, wheezes Cardiovascular exam: PRESENT: RRR. ABSENT: diastolic murmur, rubs, systolic murmur Pulses: PRESENT: normal dorsalis pedis pul GI/Abdominal exam: PRESENT: normal bowel sounds, soft. ABSENT: distended, guarding, mass, organolmegaly, rebound, tenderness Rectal exam: PRESENT: deferred Extremities exam: PRESENT: +2 edema Neurological exam: PRESENT: alert, awake, oriented to person, oriented to place Results Laboratory Results: 12/04/19 05:02 12/04/19 05:02 12/04/19 12/04/19 12/04/19 01:35 05:02 05:02 WBC 9.1 RBC 2.75 L Hgb 8.6 L Hct 25.3 L MCV 92 MCH 31.4 MCHC 34.1 RDW 16.3 H Plt Count 287 Seg Neutrophils % 62.5 Sodium 137.9 Potassium 4.0 Chloride 104 Carbon Dioxide 27 Anion Gap 7 BUN 18 Creatinine 0.74 Est GFR ( Amer) > 60 Glucose 85 Calcium 7.6 L Urine Color YELLOW Urine Appearance CLEAR Urine pH 7.0 Ur Specific [place] 1.008 Urine Protein NEGATIVE Urine Glucose (UA) NEGATIVE Urine Ketones NEGATIVE Urine Blood NEGATIVE Urine Nitrite NEGATIVE Ur Leukocyte Esterase TRACE H Urine WBC (Auto) 1 Urine RBC (Auto) 0 11/10/19 11/10/19 11/11/19 17:24 17:24 09:47 Creatine Kinase 5644 H 1323 H Troponin I 0.070 11/11/19 22:14 Creatine Kinase 956 H Troponin I Impressions: Chest X-Ray 11/10/19 17:54 IMPRESSION: Limited examination. No evidence of acute cardiopulmonary abnormality. Head CT 11/10/19 17:54 IMPRESSION: NORMAL BRAIN CT WITHOUT CONTRAST. EVIDENCE OF ACUTE STROKE: NO. Head MRI 11/11/19 00:00 IMPRESSION: NORMAL MRI OF THE BRAIN WITHOUT INTRAVENOUS GADOLINIUM CONTRAST. EVIDENCE OF ACUTE STROKE: NO. Hip X-Ray 11/11/19 00:00 IMPRESSION: NEGATIVE STUDY OF THE LEFT HIP AND PELVIS. NO RADIOGRAPHIC EVIDENCE OF ACUTE INJURY. Pelvis CT 11/25/19 00:00 IMPRESSION: 1. Large volume of stool in the colon. The rectal vault is distended with stool and there is wall thickening. Inflammation is seen extending from the anal verge/distal rectum into the soft tissues of the right buttocks with a focal fluid collection measuring 4.9 x 3.7 x 4.6 cm consistent with an abscess. No abscess is seen on the left. This process also involves the tip of the coccyx. 2. No intra-abdominal extension. 3. Midline ventral hernia containing multiple bowel loops. No obstruction. THIS REPORT CONTAINS FINDINGS THAT MAY BE CRITICAL TO PATIENT CARE: The findings were verbally discussed via telephone conference with MIGUEL GRIGGS MD at 10:41 PM YARD HOSTLER on 11/25/2019 . Assessment and Plan - Diagnosis (1) Sacral decubitus ulcer Qualifiers: Pressure injury stage: stage 4 Qualified Code(s): L89.154 - Pressure ulcer of sacral region, stage 4 Is this a current diagnosis for this admission?: Yes (2) Acute metabolic encephalopathy Is this a current diagnosis for this admission?: Yes Plan: Resolved. (3) Acute renal failure Qualifiers: Acute renal failure type: unspecified Qualified Code(s): N17.9 - Acute kidney failure, unspecified Is this a current diagnosis for this admission?: Yes Plan: Resolved. (4) Seizure-like activity Is this a current diagnosis for this admission?: Yes Plan: Suspected to be an isolated seizure activity precipitated by Wellbutrin in the setting of acute renal failure. (5) Lymphedema of both lower extremities Is this a current diagnosis for this admission?: Yes - Time Time Spent with patient: 15-24 minutes
[2019-12-04] MEDS: POLYETHYLENE GLYCOL 3350 POWDER 17 GM/1 PACKET PO PRN (18:19)
[2019-12-04] MEDS: MELATONIN 5 MG TABLET PO SCH (22:09)
[2019-12-04] MEDS: BUSPIRONE HCL 10 MG TABLET PO SCH (22:09)
[2019-12-05] MEDS: METRONIDAZOLE 500 MG TABLET PO SCH ×3 (06:43→22:51)
[2019-12-05] MEDS: HYDROCODONE/ACETAMINOPHEN 5-325 MG TABLET PO PRN ×3 (06:43→22:51)
[2019-12-05] MEDS: DIVALPROEX SODIUM 250 MG TAB.SR.24H PO SCH ×2 (09:58→17:31)
[2019-12-05] MEDS: CIPROFLOXACIN HCL 500 MG TABLET PO SCH ×2 (09:58→22:51)
[2019-12-05] MEDS: DOCUSATE SODIUM 100 MG CAPSULE PO SCH ×2 (09:58→17:31)
[2019-12-05] MEDS: FAMOTIDINE 20 MG TABLET PO SCH ×2 (09:58→22:51)
[2019-12-05] MEDS: ENOXAPARIN SODIUM INJ 40 MG/0.4 ML DISP.SYRIN SUBCUT SCH (09:59)
--- NOTE | 2019-12-05 11:39 | PDOC PROGRESS REPORT ---
Subjective Progress Note for:: 12/05/19 Subjective:: 11/30: No acute event overnight. Patient denies any complaints encounter. Denies chest pain or shortness of breath. Minimal output from the wound VAC. 12/01: Patient denies acute complaints. Possible replacement of wound VAC today by surgery. 12/02: Patient denies acute complaints. Denies chest pain shortness of breath. Wound VAC removed by surgery today. Patient is medically ready for discharge and shows awaiting placement. 12/03: No acute event overnight. Denies acute complaints. Patient is still awaiting placement. 12/04: No acute issues. Patient denies acute complaints. Denies chest pain shortness of breath. 12/05: No acute event overnight. He appears comfortable. Patient denies acute complaints. Patient is still awaiting placement. Reason For Visit: ACUTE RESPIRATORY FAILURE WITH HYPOXIA AND Physical Exam Vital Signs: Temp Pulse Resp BP Pulse Ox 98.1 F 75 18 100/78 100 12/04/19 20:18 12/04/19 20:18 12/04/19 20:18 12/04/19 20:18 12/04/19 20:18 Intake & Output 12/04/19 12/05/19 12/06/19 06:59 06:59 06:59 Intake Total 150 1375 Output Total 2285 3350 Balance -2134 Weight 240 lb 4.862 oz 244 lb 0.827 oz General appearance: PRESENT: no acute distress, well-developed, well-nourished Head exam: PRESENT: atraumatic, normocephalic Eye exam: PRESENT: conjunctiva pink, EOMI, PERRLA. ABSENT: scleral icterus Ear exam: PRESENT: normal external ear exam Mouth exam: PRESENT: moist, tongue midline Neck exam: ABSENT: carotid bruit, JVD, lymphadenopathy, thyromegaly Respiratory exam: PRESENT: clear to auscultation jose. ABSENT: rales, rhonchi, wheezes Cardiovascular exam: PRESENT: RRR. ABSENT: diastolic murmur, rubs, systolic murmur Pulses: PRESENT: normal dorsalis pedis pul GI/Abdominal exam: PRESENT: normal bowel sounds, soft. ABSENT: distended, guarding, mass, organolmegaly, rebound, tenderness Rectal exam: PRESENT: deferred Extremities exam: PRESENT: +2 edema Neurological exam: PRESENT: alert, awake, oriented to person, CN II-XII grossly intact. ABSENT: motor sensory deficit Results Laboratory Results: 12/04/19 05:02 12/04/19 05:02 11/10/19 11/10/19 11/11/19 17:24 17:24 09:47 Creatine Kinase 5644 H 1323 H Troponin I 0.070 11/11/19 22:14 Creatine Kinase 956 H Troponin I Impressions: Chest X-Ray 11/10/19 17:54 IMPRESSION: Limited examination. No evidence of acute cardiopulmonary abnormality. Head CT 11/10/19 17:54 IMPRESSION: NORMAL BRAIN CT WITHOUT CONTRAST. EVIDENCE OF ACUTE STROKE: NO. Head MRI 11/11/19 00:00 IMPRESSION: NORMAL MRI OF THE BRAIN WITHOUT INTRAVENOUS GADOLINIUM CONTRAST. EVIDENCE OF ACUTE STROKE: NO. Hip X-Ray 11/11/19 00:00 IMPRESSION: NEGATIVE STUDY OF THE LEFT HIP AND PELVIS. NO RADIOGRAPHIC EVIDENCE OF ACUTE INJURY. Pelvis CT 11/25/19 00:00 IMPRESSION: 1. Large volume of stool in the colon. The rectal vault is distended with stool and there is wall thickening. Inflammation is seen extending from the anal verge/distal rectum into the soft tissues of the right buttocks with a focal fluid collection measuring 4.9 x 3.7 x 4.6 cm consistent with an abscess. No abscess is seen on the left. This process also involves the tip of the coccyx. 2. No intra-abdominal extension. 3. Midline ventral hernia containing multiple bowel loops. No obstruction. THIS REPORT CONTAINS FINDINGS THAT MAY BE CRITICAL TO PATIENT CARE: The findings were verbally discussed via telephone conference with MIGUEL GRIGGS MD at 10:41 PM CLASSROOM TECHNOLOGY TECHNICIAN on 11/25/2019 . Assessment and Plan - Diagnosis (1) Sacral decubitus ulcer Qualifiers: Pressure injury stage: stage 4 Qualified Code(s): L89.154 - Pressure ulcer of sacral region, stage 4 Is this a current diagnosis for this admission?: Yes Plan: S/P Sacral pressure full thickness debridment to bone, incision drainage of right gluteal abscess on 11/26. S/P wound vac placement on 11/29. Wound vac removed on 12/01. (2) Acute metabolic encephalopathy Is this a current diagnosis for this admission?: Yes Plan: Resolved. (3) Acute renal failure Qualifiers: Acute renal failure type: unspecified Qualified Code(s): N17.9 - Acute kidney failure, unspecified Is this a current diagnosis for this admission?: Yes Plan: Resolved. (4) Seizure-like activity Is this a current diagnosis for this admission?: Yes Plan: Suspected to be an isolated seizure activity precipitated by Wellbutrin in the setting of acute renal failure. (5) Lymphedema of both lower extremities Is this a current diagnosis for this admission?: Yes - Time Time Spent with patient: 15-24 minutes
[2019-12-05] MEDS: MELATONIN 5 MG TABLET PO SCH (22:51)
[2019-12-05] MEDS: TRAZODONE HCL 50 MG TABLET PO PRN (22:51)
[2019-12-05] MEDS: BUSPIRONE HCL 10 MG TABLET PO SCH (22:51)
[2019-12-06 05:45] LABS: HEMATOCRIT 23.4 % (37.9-51.0); MEAN CORPUSCULAR HEMOGLOBIN 31.3 pg (27.0-33.4); MEAN CORPUSCULAR HGB CONC 33.6 g/dL (32.0-36.0); MEAN CORPUSCULAR VOLUME 93 fl (80-97); PLATELET COUNT 262 10^3/uL (150-450); RED BLOOD COUNT 2.52 10^6/uL (4.35-5.55); RED CELL DISTRIBUTION WIDTH 16.3 % (11.5-14.0); WHITE BLOOD COUNT 9.2 10^3/uL (4.0-10.5)
[2019-12-06 05:49] LABS: HEMOGLOBIN 7.9 g/dL (13.5-17.0)
[2019-12-06] MEDS: METRONIDAZOLE 500 MG TABLET PO SCH ×3 (06:13→21:22)
[2019-12-06] MEDS: HYDROCODONE/ACETAMINOPHEN 5-325 MG TABLET PO PRN ×2 (06:13→15:28)
[2019-12-06] MEDS: CIPROFLOXACIN HCL 500 MG TABLET PO SCH ×2 (09:51→21:22)
[2019-12-06] MEDS: DIVALPROEX SODIUM 250 MG TAB.SR.24H PO SCH ×2 (09:52→17:46)
[2019-12-06] MEDS: ENOXAPARIN SODIUM INJ 40 MG/0.4 ML DISP.SYRIN SUBCUT SCH (09:52)
[2019-12-06] MEDS: DOCUSATE SODIUM 100 MG CAPSULE PO SCH ×2 (09:52→17:46)
[2019-12-06] MEDS: FAMOTIDINE 20 MG TABLET PO SCH ×2 (09:52→21:22)
[2019-12-06] MEDS ORDERED: NORMAL SALINE 500 ML IV ONE (11:45)
--- NOTE | 2019-12-06 14:23 | PDOC PROGRESS REPORT ---
Subjective Progress Note for:: 12/06/19 Subjective:: 11/30: No acute event overnight. Patient denies any complaints encounter. Denies chest pain or shortness of breath. Minimal output from the wound VAC. 12/01: Patient denies acute complaints. Possible replacement of wound VAC today by surgery. 12/02: Patient denies acute complaints. Denies chest pain shortness of breath. Wound VAC removed by surgery today. Patient is medically ready for discharge and shows awaiting placement. 12/03: No acute event overnight. Denies acute complaints. Patient is still awaiting placement. 12/04: No acute issues. Patient denies acute complaints. Denies chest pain shortness of breath. 12/05: No acute event overnight. He appears comfortable. Patient denies acute complaints. 12/06: No acute issues. Wound dressing changed by RN and had some serosanguineous discharge. Patient denies acute complaints. Patient is still awaiting placement. Reason For Visit: ACUTE RESPIRATORY FAILURE WITH HYPOXIA AND Physical Exam Vital Signs: Temp Pulse Resp BP Pulse Ox 97.8 F 76 16 84/30 L 99 12/06/19 11:26 12/06/19 11:26 12/06/19 11:26 12/06/19 11:26 12/06/19 11:26 Intake & Output 12/05/19 12/06/19 12/07/19 06:59 06:59 06:59 Intake Total 1375 1036 360 Output Total 3350 2950 450 Balance -1974 Weight 244 lb 0.827 oz 240 lb 11.916 oz General appearance: PRESENT: no acute distress, well-developed, well-nourished Head exam: PRESENT: atraumatic, normocephalic Eye exam: PRESENT: conjunctiva pink, EOMI, PERRLA. ABSENT: scleral icterus Ear exam: PRESENT: normal external ear exam Mouth exam: PRESENT: moist, tongue midline Neck exam: ABSENT: carotid bruit, JVD, lymphadenopathy, thyromegaly Respiratory exam: PRESENT: clear to auscultation jose. ABSENT: rales, rhonchi, wheezes Cardiovascular exam: PRESENT: RRR. ABSENT: diastolic murmur, rubs, systolic murmur Pulses: PRESENT: normal dorsalis pedis pul GI/Abdominal exam: PRESENT: normal bowel sounds, soft. ABSENT: distended, guarding, mass, organolmegaly, rebound, tenderness Rectal exam: PRESENT: deferred Extremities exam: PRESENT: +2 edema Neurological exam: PRESENT: alert, awake, oriented to person, CN II-XII grossly intact. ABSENT: motor sensory deficit Results Laboratory Results: 12/06/19 04:52 12/04/19 05:02 12/06/19 04:52 WBC 9.2 RBC 2.52 L Hgb 7.9 L Hct 23.4 L MCV 93 MCH 31.3 MCHC 33.6 RDW 16.3 H Plt Count 262 11/10/19 11/10/19 11/11/19 17:24 17:24 09:47 Creatine Kinase 5644 H 1323 H Troponin I 0.070 11/11/19 22:14 Creatine Kinase 956 H Troponin I Impressions: Chest X-Ray 11/10/19 17:54 IMPRESSION: Limited examination. No evidence of acute cardiopulmonary abnormality. Head CT 11/10/19 17:54 IMPRESSION: NORMAL BRAIN CT WITHOUT CONTRAST. EVIDENCE OF ACUTE STROKE: NO. Head MRI 11/11/19 00:00 IMPRESSION: NORMAL MRI OF THE BRAIN WITHOUT INTRAVENOUS GADOLINIUM CONTRAST. EVIDENCE OF ACUTE STROKE: NO. Hip X-Ray 11/11/19 00:00 IMPRESSION: NEGATIVE STUDY OF THE LEFT HIP AND PELVIS. NO RADIOGRAPHIC EVIDENCE OF ACUTE INJURY. Pelvis CT 11/25/19 00:00 IMPRESSION: 1. Large volume of stool in the colon. The rectal vault is distended with stool and there is wall thickening. Inflammation is seen extending from the anal verge/distal rectum into the soft tissues of the right buttocks with a focal fluid collection measuring 4.9 x 3.7 x 4.6 cm consistent with an abscess. No abscess is seen on the left. This process also involves the tip of the coccyx. 2. No intra-abdominal extension. 3. Midline ventral hernia containing multiple bowel loops. No obstruction. THIS REPORT CONTAINS FINDINGS THAT MAY BE CRITICAL TO PATIENT CARE: The findings were verbally discussed via telephone conference with MIGUEL GRIGGS MD at 10:41 PM LEAD RAMP SERVICE MAN on 11/25/2019 . Assessment and Plan - Diagnosis (1) Sacral decubitus ulcer Qualifiers: Pressure injury stage: stage 4 Qualified Code(s): L89.154 - Pressure ulcer of sacral region, stage 4 Is this a current diagnosis for this admission?: Yes Plan: S/P Sacral pressure full thickness debridment to bone, incision drainage of right gluteal abscess on 11/26. S/P wound vac placement on 11/29. Wound vac removed on 12/01. (2) Acute metabolic encephalopathy Is this a current diagnosis for this admission?: Yes Plan: Resolved. (3) Acute renal failure Qualifiers: Acute renal failure type: unspecified Qualified Code(s): N17.9 - Acute kidney failure, unspecified Is this a current diagnosis for this admission?: Yes Plan: Resolved. (4) Seizure-like activity Is this a current diagnosis for this admission?: Yes Plan: Suspected to be an isolated seizure activity precipitated by Wellbutrin in the setting of acute renal failure. (5) Lymphedema of both lower extremities Is this a current diagnosis for this admission?: Yes - Time Time Spent with patient: 15-24 minutes
[2019-12-06 19:48] LABS: APPEARANCE,URINE CLEAR; BILIRUBIN,URINE NEGATIVE (NEGATIVE); COLOR,URINE YELLOW; GLUCOSE, URINE NEGATIVE (NEGATIVE); KETONES,URINE NEGATIVE (NEGATIVE); LEUKOCYTE ESTERASE,URINE SMALL (NEGATIVE); NITRITE,URINE NEGATIVE (NEGATIVE); PROTEIN,URINE NEGATIVE (NEGATIVE); URINE SPECIFIC GRAVITY 1.009
[2019-12-06] MEDS: BUSPIRONE HCL 10 MG TABLET PO SCH (21:22)
[2019-12-06] MEDS: TRAZODONE HCL 50 MG TABLET PO PRN (21:22)
[2019-12-06] MEDS: MELATONIN 5 MG TABLET PO SCH (21:22)
[2019-12-07] MEDS: METRONIDAZOLE 500 MG TABLET PO SCH ×3 (06:35→21:14)
[2019-12-07] MEDS: DIVALPROEX SODIUM 250 MG TAB.SR.24H PO SCH ×2 (09:38→17:22)
[2019-12-07] MEDS: FAMOTIDINE 20 MG TABLET PO SCH ×2 (09:38→21:14)
[2019-12-07] MEDS: CIPROFLOXACIN HCL 500 MG TABLET PO SCH ×2 (09:38→21:14)
[2019-12-07] MEDS: DOCUSATE SODIUM 100 MG CAPSULE PO SCH ×2 (09:38→17:25)
[2019-12-07] MEDS: ENOXAPARIN SODIUM INJ 40 MG/0.4 ML DISP.SYRIN SUBCUT SCH (09:42)
--- NOTE | 2019-12-07 15:50 | PDOC PROGRESS REPORT ---
Subjective Progress Note for:: 12/07/19 Reason For Visit: ACUTE RESPIRATORY FAILURE WITH HYPOXIA AND Physical Exam Vital Signs: Temp Pulse Resp BP Pulse Ox 98.3 F 81 18 119/58 L 99 12/07/19 08:00 12/07/19 08:00 12/07/19 08:00 12/07/19 08:00 12/07/19 08:00 Intake & Output 12/06/19 12/07/19 12/08/19 06:59 06:59 06:59 Intake Total 1036 1200 260 Output Total 2950 7945 580 Balance -0874 -1005 -805 Weight 109.2 kg 106 kg 106 kg General appearance: PRESENT: no acute distress Respiratory exam: PRESENT: clear to auscultation jose. ABSENT: rales, rhonchi, wheezes Cardiovascular exam: PRESENT: RRR. ABSENT: diastolic murmur, rubs, systolic murmur Rectal exam: PRESENT: other - Sacral decubitus deferred to nursing with wound and dressing changes Neurological exam: PRESENT: alert, awake, oriented to person, oriented to place, oriented to time, oriented to situation, CN II-XII grossly intact. ABSENT: motor sensory deficit Psychiatric exam: PRESENT: appropriate affect, normal mood. ABSENT: homicidal ideation, suicidal ideation Results Laboratory Results: 12/06/19 04:52 12/04/19 05:02 12/06/19 18:55 Urine Color YELLOW Urine Appearance CLEAR Urine pH 7.0 Ur Specific [place] 1.009 Urine Protein NEGATIVE Urine Glucose (UA) NEGATIVE Urine Ketones NEGATIVE Urine Blood MODERATE H Urine Nitrite NEGATIVE Ur Leukocyte Esterase SMALL H Urine WBC (Auto) 4 Urine RBC (Auto) 9 11/10/19 11/10/19 11/11/19 17:24 17:24 09:47 Creatine Kinase 5644 H 1323 H Troponin I 0.070 11/11/19 22:14 Creatine Kinase 956 H Troponin I Impressions: Chest X-Ray 11/10/19 17:54 IMPRESSION: Limited examination. No evidence of acute cardiopulmonary abnormality. Head CT 11/10/19 17:54 IMPRESSION: NORMAL BRAIN CT WITHOUT CONTRAST. EVIDENCE OF ACUTE STROKE: NO. Head MRI 11/11/19 00:00 IMPRESSION: NORMAL MRI OF THE BRAIN WITHOUT INTRAVENOUS GADOLINIUM CONTRAST. EVIDENCE OF ACUTE STROKE: NO. Hip X-Ray 11/11/19 00:00 IMPRESSION: NEGATIVE STUDY OF THE LEFT HIP AND PELVIS. NO RADIOGRAPHIC EVIDENCE OF ACUTE INJURY. Pelvis CT 11/25/19 00:00 IMPRESSION: 1. Large volume of stool in the colon. The rectal vault is distended with stool and there is wall thickening. Inflammation is seen extending from the anal verge/distal rectum into the soft tissues of the right buttocks with a focal fluid collection measuring 4.9 x 3.7 x 4.6 cm consistent with an abscess. No abscess is seen on the left. This process also involves the tip of the coccyx. 2. No intra-abdominal extension. 3. Midline ventral hernia containing multiple bowel loops. No obstruction. THIS REPORT CONTAINS FINDINGS THAT MAY BE CRITICAL TO PATIENT CARE: The findings were verbally discussed via telephone conference with MIGUEL GRIGGS MD at 10:41 PM MOTION PICTURE PHOTOGRAPHER on 11/25/2019 . Assessment and Plan - Diagnosis (1) Acute metabolic encephalopathy Is this a current diagnosis for this admission?: Yes (2) Acute renal failure Qualifiers: Acute renal failure type: unspecified Qualified Code(s): N17.9 - Acute kidney failure, unspecified Is this a current diagnosis for this admission?: Yes (3) Sacral decubitus ulcer, stage IV Is this a current diagnosis for this admission?: Yes (4) Seizure-like activity Is this a current diagnosis for this admission?: Yes - Plan Summary Summary: 12/07/2019 Per DSS quality cloth tester Medicaid has been approved Waiting to hear back from facilities to see if they will take the patient Wound VAC was discontinued on 213 Patient was started on Flagyl and Cipro on 12/01 Temperature 98.3 pulse 81 blood pressure 119/58 O2 sat 99% on room air Labs show a normal white count 9.2. Hemo-globin stable 7.9 Electrolytes are normal Patient is medically stable for discharge - Time Time Spent with patient: 25-34 minutes
[2019-12-07] MEDS: HYDROCODONE/ACETAMINOPHEN 5-325 MG TABLET PO PRN (16:54)
[2019-12-07] MEDS: MELATONIN 5 MG TABLET PO SCH (21:14)
[2019-12-07] MEDS: BUSPIRONE HCL 10 MG TABLET PO SCH (21:14)
[2019-12-08 05:23] LABS: HEMATOCRIT 25.3 % (37.9-51.0); HEMOGLOBIN 8.5 g/dL (13.5-17.0); MEAN CORPUSCULAR HEMOGLOBIN 31.1 pg (27.0-33.4); MEAN CORPUSCULAR HGB CONC 33.7 g/dL (32.0-36.0); MEAN CORPUSCULAR VOLUME 92 fl (80-97); PLATELET COUNT 258 10^3/uL (150-450); RED BLOOD COUNT 2.75 10^6/uL (4.35-5.55); RED CELL DISTRIBUTION WIDTH 16.3 % (11.5-14.0); WHITE BLOOD COUNT 8.3 10^3/uL (4.0-10.5)
[2019-12-08] MEDS: METRONIDAZOLE 500 MG TABLET PO SCH (05:31)
[2019-12-08] MEDS: DIVALPROEX SODIUM 250 MG TAB.SR.24H PO SCH ×2 (10:06→17:18)
[2019-12-08] MEDS: ENOXAPARIN SODIUM INJ 40 MG/0.4 ML DISP.SYRIN SUBCUT SCH (10:06)
[2019-12-08] MEDS: DOCUSATE SODIUM 100 MG CAPSULE PO SCH ×2 (10:06→17:18)
[2019-12-08] MEDS: CIPROFLOXACIN HCL 500 MG TABLET PO SCH (10:06)
[2019-12-08] MEDS: FAMOTIDINE 20 MG TABLET PO SCH ×2 (10:33→22:05)
--- NOTE | 2019-12-08 12:16 | Progress Note ---
Provider Note Provider Note: 12/08/2019 Based on patient's current needs, patient will require a 30-day STR day
--- NOTE | 2019-12-08 13:37 | PDOC PROGRESS REPORT ---
Subjective Progress Note for:: 12/08/19 Reason For Visit: ACUTE RESPIRATORY FAILURE WITH HYPOXIA AND 12/08/2019 As above plus sacral decubitus, acute renal failure Physical Exam Vital Signs: Temp Pulse Resp BP Pulse Ox 98.9 F 73 16 101/66 99 12/08/19 08:00 12/08/19 08:00 12/08/19 08:00 12/08/19 08:00 12/08/19 08:00 Intake & Output 12/07/19 12/08/19 12/09/19 06:59 06:59 06:59 Intake Total 1200 260 Output Total 2425 1880 Balance -1225 -1620 Weight 106 kg 106.2 kg General appearance: PRESENT: no acute distress, other - Patient is sitting up in the chair stating he has no complaints Respiratory exam: PRESENT: clear to auscultation jose. ABSENT: rales, rhonchi, wheezes Cardiovascular exam: PRESENT: RRR. ABSENT: diastolic murmur, rubs, systolic murmur Rectal exam: PRESENT: deferred, other - Nursing is performing dressing changes Extremities exam: PRESENT: +2 edema, other - This is lymphedema of a chronic nature in both lower extremities Results Laboratory Results: 12/08/19 04:27 12/04/19 05:02 12/08/19 04:27 WBC 8.3 RBC 2.75 L Hgb 8.5 L Hct 25.3 L MCV 92 MCH 31.1 MCHC 33.7 RDW 16.3 H Plt Count 258 11/10/19 11/10/19 11/11/19 17:24 17:24 09:47 Creatine Kinase 5644 H 1323 H Troponin I 0.070 11/11/19 22:14 Creatine Kinase 956 H Troponin I Impressions: Chest X-Ray 11/10/19 17:54 IMPRESSION: Limited examination. No evidence of acute cardiopulmonary abnormality. Head CT 11/10/19 17:54 IMPRESSION: NORMAL BRAIN CT WITHOUT CONTRAST. EVIDENCE OF ACUTE STROKE: NO. Head MRI 11/11/19 00:00 IMPRESSION: NORMAL MRI OF THE BRAIN WITHOUT INTRAVENOUS GADOLINIUM CONTRAST. EVIDENCE OF ACUTE STROKE: NO. Hip X-Ray 11/11/19 00:00 IMPRESSION: NEGATIVE STUDY OF THE LEFT HIP AND PELVIS. NO RADIOGRAPHIC EVIDENCE OF ACUTE INJURY. Pelvis CT 11/25/19 00:00 IMPRESSION: 1. Large volume of stool in the colon. The rectal vault is distended with stool and there is wall thickening. Inflammation is seen extending from the anal verge/distal rectum into the soft tissues of the right buttocks with a focal fluid collection measuring 4.9 x 3.7 x 4.6 cm consistent with an abscess. No abscess is seen on the left. This process also involves the tip of the coccyx. 2. No intra-abdominal extension. 3. Midline ventral hernia containing multiple bowel loops. No obstruction. THIS REPORT CONTAINS FINDINGS THAT MAY BE CRITICAL TO PATIENT CARE: The findings were verbally discussed via telephone conference with MIGUEL GRIGGS MD at 10:41 PM CORRUGATOR MACHINE OPERATOR on 11/25/2019 . Assessment and Plan - Diagnosis (1) Acute metabolic encephalopathy Is this a current diagnosis for this admission?: Yes (2) Acute renal failure Qualifiers: Acute renal failure type: unspecified Qualified Code(s): N17.9 - Acute kidney failure, unspecified Is this a current diagnosis for this admission?: Yes (3) Sacral decubitus ulcer, stage IV Is this a current diagnosis for this admission?: Yes (4) Seizure-like activity Is this a current diagnosis for this admission?: Yes (5) Lymphedema Is this a current diagnosis for this admission?: Yes - Plan Summary Summary: 12/07/2019 Per DSS lineman apprentice Medicaid has been approved Waiting to hear back from facilities to see if they will take the patient Wound VAC was discontinued on 213 Patient was started on Flagyl and Cipro on 12/01 Temperature 98.3 pulse 81 blood pressure 119/58 O2 sat 99% on room air Labs show a normal white count 9.2. 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 And about his impending discharge from the hospital Patient's white count is still normal 8.3, hemoglobin has come up to 8.5 Patient is medically stable for discharge Will DC patient on Flagyl and Cipro with stop date of 12/11/2019, this will complete a 10-day course of these antibiotics Patient will continue to need daily wound care for his sacral decubitus - Time Time Spent with patient: 15-24 minutes
[2019-12-08] MEDS: BUSPIRONE HCL 10 MG TABLET PO SCH (22:05)
[2019-12-08] MEDS: TRAZODONE HCL 50 MG TABLET PO PRN (22:05)
[2019-12-08] MEDS: MELATONIN 5 MG TABLET PO SCH (22:05)
[2019-12-08] MEDS: HYDROCODONE/ACETAMINOPHEN 5-325 MG TABLET PO PRN (23:56)
[2019-12-09 00:33] LABS: APPEARANCE,URINE CLEAR; BILIRUBIN,URINE NEGATIVE (NEGATIVE); COLOR,URINE YELLOW; GLUCOSE, URINE NEGATIVE (NEGATIVE); KETONES,URINE NEGATIVE (NEGATIVE); LEUKOCYTE ESTERASE,URINE SMALL (NEGATIVE); NITRITE,URINE NEGATIVE (NEGATIVE); PROTEIN,URINE 30 mg/dL (NEGATIVE); UROBILINOGEN,URINE NEGATIVE mg/dL (<2.0)
--- NOTE | 2019-12-09 09:23 | Progress Note ---
Provider Note Provider Note: I have reviewed the case and agree with the assessment that the patient's current needs will require a 30-day STR stay
[2019-12-09] MEDS: ENOXAPARIN SODIUM INJ 40 MG/0.4 ML DISP.SYRIN SUBCUT SCH (09:43)
[2019-12-09] MEDS: DIVALPROEX SODIUM 250 MG TAB.SR.24H PO SCH ×2 (09:44→17:16)
[2019-12-09] MEDS: DOCUSATE SODIUM 100 MG CAPSULE PO SCH ×2 (09:45→17:16)
[2019-12-09] MEDS: FAMOTIDINE 20 MG TABLET PO SCH (09:45)
--- NOTE | 2019-12-09 10:55 | PDOC TRANSFER SUMMARY ---
Impression - Admit/DC Date/PCP Admission Date/Primary Care Provider: 11/10/19 23:04 SARY MORRIS Discharge Date: 12/09/19 - Discharge Diagnosis (1) Acute metabolic encephalopathy Is this a current diagnosis for this admission?: Yes (2) Acute renal failure Is this a current diagnosis for this admission?: Yes (3) Sacral decubitus ulcer, stage IV Is this a current diagnosis for this admission?: Yes (4) Seizure-like activity Is this a current diagnosis for this admission?: Yes (5) Lymphedema Is this a current diagnosis for this admission?: Yes (6) Severe dementia Is this a current diagnosis for this admission?: Yes (7) Elevated lactic acid level Is this a current diagnosis for this admission?: Yes (8) Hypothermia Is this a current diagnosis for this admission?: Yes - Assessment Summary: 12/07/2019 Per DSS tile helper Medicaid has been approved Waiting to hear back from facilities to see if they will take the patient Wound VAC was discontinued on Patient was started on Flagyl and Cipro on 12/01 Temperature 98.3 pulse 81 blood pressure 119/58 O2 sat 99% on room air Labs show a normal white count 9.2. 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 And about his impending discharge from the hospital Patient's white count is still normal 8.3, hemoglobin has come up to 8.5 Patient is medically stable for discharge Will DC patient on Flagyl and Cipro with stop date of 12/11/2019, this will complete a 10-day course of these antibiotics Patient will continue to need daily wound care for his sacral decubitus 12/09/2019 Complete note please see history and physical and daily progress notes For me this patient was admitted to the hospital through the emergency room October 10 with altered mental status. According to the family for the last 2 days his mental status has been worse. Patient has a history however of severe dementia. Also in the emergency room the patient appeared to be hypothermic elevated lactic acid of 5 as well as hypoxic MRI of the brain that showed no acute stroke and no gross abnormalities X-rays of the pelvis and left hip showed no fractures CT scan of the abdomen and pelvis showed a large amount of stool as well as inflammation around the rectum in the right buttocks. This was secondary to the sacral decubitus, over there was no intra-abdominal extension. Because of this patient was seen by general surgery who recommended I&D of the perirectal abscess , decubitus. On 11/26/2019 the patient had a sacral pressure full- thickness debridement to the bone with incision and drainage of the right gluteal abscess Surgery signed off the patient on December 02 and recommended continue local wound care with pressure offloading. No further recommendations alSo on the CT scan there was a ventral hernia containing multiple loops of bowel but no obstruction Following sign off by surgery patient continued to have wound dressing changed by the nurses on a daily basis with nothing more than serosanguineous discharge Patient has had no acute issues for at least 10 days now. Patient does not need to be on any antibiotics, narcotics can be decided by the physician at the facility. Patient is medically stable to transfer for physical therapy and further nursing care - Additional Information Resuscitation Status: SUSPEND DNR FOR PROCEDURE Discharge Diet: As Tolerated Discharge Activity: Activity As Tolerated, Keep Legs Elevated Referrals: SARTHAK SANCHEZ FNP [Primary Care Provider] - Prescriptions: Buspirone HCl [Buspar 10 mg Tablet] 10 mg PO QHS 30 Days #30 tablet Divalproex Sodium [Depakote ER 250 mg Tablet] 250 mg PO BID 30 Days #60 tab.sr.24h Trazodone HCl [Desyrel 50 mg Tablet] 50 mg PO HSP PRN 30 Days #30 tablet PRN Reason: Famotidine [Pepcid 20 mg Tablet] 20 mg PO Q12 30 Days #60 tablet Home Medications: Acetaminophen [Tylenol 325 mg Tablet] 650 mg PO Q4HP PRN tablet 12/09/19 Buspirone HCl [Buspar 10 mg Tablet] 10 mg PO QHS 30 Days #30 tablet 12/09/19 Divalproex Sodium [Depakote ER 250 mg Tablet] 250 mg PO BID 30 Days #60 tab.sr.24h 12/09/19 Docusate Sodium [Colace 100 mg Capsule] 100 mg PO BID capsule 12/09/19 Famotidine [Pepcid 20 mg Tablet] 20 mg PO Q12 30 Days #60 tablet 12/09/19 Melatonin [Melatonin 5 mg Tablet] 5 mg PO QHS tablet 12/09/19 Polyethylene Glycol 3350 [Miralax Powder 17 gm/Packet] 17 gm PO DAILYP PRN powd.pack 12/09/19 Trazodone HCl [Desyrel 50 mg Tablet] 50 mg PO HSP PRN 30 Days #30 tablet 12/09/19 History of Present Illiness History of Present Illness: KRYSTEN BANDA is a 58 year old male Hospital Course Hospital Course: The patient was admitted to the medical floor and supported with supplemental oxygen and BiPAP as needed. He was provided IV fluids for correction of his dehydration and resultant SHELBIE. The patient did experience seizure-like activity; likely due to dehydration and Wellbutrin. He subsequently developed mild rhabdomyolysis. As his SHELBIE improved and rhabdomyolysis resolved, his mentation returned to his baseline. Due to seizure activity prior to admission, the patient's Wellbutrin was discontinued. There was no indication for starting AEDs as he had no further seizure activity upon stopping the offending medication. Further evaluation of his acute metabolic encephalopathy and seizure was unremarkable with a normal head CT and MRI. EEG was considered but not obtained as the patient rapidly returned to his baseline. The patient has significant bilateral lymphedema; should follow-up with the wound care clinic. He was also admitted with multiple pressure ulcers to his left shoulder, posterior calves, and sacrum suggesting that the patient has not been ambulatory for a significant amount of time. His other chronic medical conditions have remained stable. At this time, the patient has no ongoing acute medical issues, has returned to his baseline mentation, and is stable for discharge to home in the care of family members. He is advised to follow up with his primary care provider within 1 week. Strongly advised patient and family members to continue seeking assistance through social welfare clerk and obtaining increased healthcare coverage. Patient would benefit from ultimately transitioning to a long-term care setting. He should take medications as prescribed and return to the emergency department as needed for concerning symptoms. Physical Exam Vital Signs: Temp Pulse Resp BP Pulse Ox 98.6 F 71 18 100/60 99 12/09/19 00:00 12/09/19 00:00 12/09/19 00:00 12/09/19 00:00 12/09/19 00:00 Intake & Output 12/08/19 12/09/19 12/10/19 06:59 06:59 06:59 Intake Total 260 620 Output Total 1880 3200 Balance -1620 -2580 Weight 106.2 kg 106 kg Results Laboratory Results: WBC 8.3 10^3/uL (4.0-10.5) 12/08/19 04:27 RBC 2.75 10^6/uL (4.35-5.55) L 12/08/19 04:27 Hgb 8.5 g/dL (13.5-17.0) L 12/08/19 04:27 Hct 25.3 % (37.9-51.0) L 12/08/19 04:27 MCV 92 fl (80-97) 12/08/19 04:27 MCH 31.1 pg (27.0-33.4) 12/08/19 04:27 MCHC 33.7 g/dL (32.0-36.0) 12/08/19 04:27 RDW 16.3 % (11.5-14.0) H 12/08/19 04:27 Plt Count 258 10^3/uL (150-450) 12/08/19 04:27 Lymph % (Auto) 20.7 % (13-45) 12/04/19 05:02 [place] % (Auto) 14.2 % (3-13) H 12/04/19 05:02 Eos % (Auto) 2.2 % (0-6) 12/04/19 05:02 Baso % (Auto) 0.4 % (0-2) 12/04/19 05:02 Absolute Neuts (auto) 5.7 10^3/uL (1.7-8.2) 12/04/19 05:02 Absolute Lymphs (auto) 1.9 10^3/uL (0.5-4.7) 12/04/19 05:02 Absolute Monos (auto) 1.3 10^3/uL (0.1-1.4) 12/04/19 05:02 Absolute Eos (auto) 0.2 10^3/uL (0.0-0.6) 12/04/19 05:02 Absolute Basos (auto) 0.0 10^3/uL (0.0-0.2) 12/04/19 05:02 Seg Neutrophils % 62.5 % (42-78) 12/04/19 05:02 Platelet Estimate Cancelled 12/02/19 04:22 PT 17.2 SEC (11.4-15.4) H 11/10/19 21:07 INR 1.39 11/10/19 21:07 Carbonic Acid 1.43 mmol/L (1.05-1.35) H 11/10/19 19:37 HCO3/H2CO3 Ratio 19:1 11/10/19 19:37 ABG pH 7.38 (7.35-7.45) 11/10/19 19:37 ABG pCO2 47.5 mmHg (35-45) H 11/10/19 19:37 ABG pO2 43.2 mmHg (80-100) L 11/10/19 19:37 ABG HCO3 27.2 mmol/L (20-24) H 11/10/19 19:37 ABG Total CO2 28.7 mmol/L (23-27) H 11/10/19 19:37 ABG O2 Saturation 77.6 % (94-98) L 11/10/19 19:37 ABG Base Excess 1.3 mmol/L 11/10/19 19:37 FiO2 2L 11/10/19 19:37 Sodium 137.9 mmol/L (137-145) 12/04/19 05:02 Potassium 4.0 mmol/L (3.6-5.0) 12/04/19 05:02 Chloride 104 mmol/L (98-107) 12/04/19 05:02 Carbon Dioxide 27 mmol/L (22-30) 12/04/19 05:02 Anion Gap 7 (5-19) 12/04/19 05:02 BUN 18 mg/dL (7-20) 12/04/19 05:02 Creatinine 0.74 mg/dL (0.52-1.25) 12/04/19 05:02 Est GFR ( Amer) > 60 (>60) 12/04/19 05:02 Est GFR (MDRD) Non-Af > 60 (>60) 12/04/19 05:02 Glucose 85 mg/dL (75-110) 12/04/19 05:02 POC Glucose 134 mg/dL (70-110) H 11/10/19 19:43 Lactic Acid 1.8 mmol/L (0.7-2.1) 11/11/19 00:27 Calcium 7.6 mg/dL (8.4-10.2) L 12/04/19 05:02 Magnesium 2.1 mg/dL (1.6-2.3) 11/13/19 05:34 Total Bilirubin 0.8 mg/dL (0.2-1.3) 11/11/19 06:07 Direct Bilirubin 0.2 mg/dL (0.0-0.4) 11/11/19 06:07 Neonat Total Bilirubin Not Reportable 11/11/19 06:07 Neonat Direct Bilirubin Not Reportable 11/11/19 06:07 Neonat Indirect Bili Not Reportable 11/11/19 06:07 AST 184 U/L (17-59) H 11/11/19 06:07 ALT 99 U/L (<50) 11/11/19 06:07 Alkaline Phosphatase 56 U/L (38-126) 11/11/19 06:07 Creatine Kinase 956 U/L (55-170) H 11/11/19 22:14 Troponin I 0.070 ng/mL 11/10/19 17:24 Total Protein 5.4 g/dL (6.3-8.2) L 11/11/19 06:07 Albumin 2.4 g/dL (3.5-5.0) L 11/11/19 06:07 TSH 2.55 uIU/mL (0.47-4.68) 11/11/19 06:07 Urine Color YELLOW 12/09/19 00:00 Urine Appearance CLEAR 12/09/19 00:00 Urine pH 9.0 (5.0-9.0) 12/09/19 00:00 Ur Specific [place] 1.010 12/09/19 00:00 Urine Protein 30 mg/dL (NEGATIVE) H 12/09/19 00:00 Urine Glucose (UA) NEGATIVE mg/dL (NEGATIVE) 12/09/19 00:00 Urine Ketones NEGATIVE mg/dL (NEGATIVE) 12/09/19 00:00 Urine Blood SMALL (NEGATIVE) H 12/09/19 00:00 Urine Nitrite NEGATIVE (NEGATIVE) 12/09/19 00:00 Urine Nitrite (Reflex) NEGATIVE (NEGATIVE) 11/10/19 19:51 Urine Bilirubin NEGATIVE (NEGATIVE) 12/09/19 00:00 Urine Urobilinogen NEGATIVE mg/dL (<2.0) 02/20/20 00:00 Ur Leukocyte Esterase SMALL (NEGATIVE) H 12/09/19 00:00 Leukocyte Esterase Rfl NEGATIVE (NEGATIVE) 11/10/19 19:51 Urine WBC (Auto) 10 /HPF 12/09/19 00:00 Urine RBC (Auto) 39 /HPF 12/09/19 00:00 Urine Bacteria (Auto) TRACE /HPF 12/09/19 00:00 Urine WBC (Reflex) 2 /HPF 11/10/19 19:51 Squamous Epi Cells Auto <1 /HPF 12/04/19 01:35 Urine Mucus (Auto) RARE /LPF 12/09/19 00:00 Urine Ascorbic Acid NEGATIVE (NEGATIVE) 12/09/19 00:00 Slides for Path Review Cancelled 12/02/19 04:22 11/10/19 17:24 Troponin I 0.070 Impressions: Chest X-Ray 11/10/19 17:54 IMPRESSION: Limited examination. No evidence of acute cardiopulmonary abnormality. Head CT 11/10/19 17:54 IMPRESSION: NORMAL BRAIN CT WITHOUT CONTRAST. EVIDENCE OF ACUTE STROKE: NO. Head MRI 11/11/19 00:00 IMPRESSION: NORMAL MRI OF THE BRAIN WITHOUT INTRAVENOUS GADOLINIUM CONTRAST. EVIDENCE OF ACUTE STROKE: NO. Hip X-Ray 11/11/19 00:00 IMPRESSION: NEGATIVE STUDY OF THE LEFT HIP AND PELVIS. NO RADIOGRAPHIC EVIDENCE OF ACUTE INJURY. Pelvis CT 11/25/19 00:00 IMPRESSION: 1. Large volume of stool in the colon. The rectal vault is distended with stool and there is wall thickening. Inflammation is seen extending from the anal verge/distal rectum into the soft tissues of the right buttocks with a focal fluid collection measuring 4.9 x 3.7 x 4.6 cm consistent with an abscess. No abscess is seen on the left. This process also involves the tip of the coccyx. 2. No intra-abdominal extension. 3. Midline ventral hernia containing multiple bowel loops. No obstruction. THIS REPORT CONTAINS FINDINGS THAT MAY BE CRITICAL TO PATIENT CARE: The findings were verbally discussed via telephone conference with MIGUEL GRIGGS MD at 10:41 PM ENVIRONMENTAL STUDIES DEPARTMENT CHAIR on 11/25/2019 . Plan Plan of Treatment: The patient is discharged to home into the care of family members. Recommend that the patient follow-up with his primary care provider within 1 week. Also strongly recommend that the patient and family members work with [facility] social welfare clerk to obtain improved healthcare coverage and social support in the home. Recommend arrangements be undertaken to have the patient transition to a long- term care facility. Take medications as prescribed. Return to the emergency department as needed for concerning symptoms. Stroke Is this a Stroke Patient?: No Acute Heart Failure - Is this a Heart Failure Patient?: No
[2019-12-09 17:12] VITALS: BP 91/53
== END 2019-12-09 19:15 | disposition short-term general hospital (02) | DRG 166 ==
LOC: ER 16:51 → EH 23:04 → 4W 11-11 01:16 → 4N 11-19 16:42
PROVIDERS: ADMIT Emergency Medicine; ATTEND Emergency Medicine
PROC: 5A09357 Assistance with Respiratory Ventilation, Less than 24 Consecutive Hours, Continuous Positive Airway Pressure (ICD-10-PCS; 2019-11-10)
PROC: 0JB70ZZ Excision of Back Subcutaneous Tissue and Fascia, Open Approach (ICD-10-PCS; principal; 2019-11-26 19:30)
DX: J96.01 Acute respiratory failure with hypoxia (principal); L89.154 Pressure ulcer of sacral region, stage 4; G93.41 Metabolic encephalopathy; N17.9 Acute kidney failure, unspecified; M62.82 Rhabdomyolysis; L02.31 Cutaneous abscess of buttock; E87.2 Acidosis; K61.1 Rectal abscess; Z66 Do not resuscitate; E86.0 Dehydration; I89.0 Lymphedema, not elsewhere classified; I10 Essential (primary) hypertension; G30.0 Alzheimer's disease with early onset; F02.80 Dementia in other diseases classified elsewhere, unspecified severity, without behavioral disturbance, psychotic disturbance, mood disturbance, and anxiety; K70.30 Alcoholic cirrhosis of liver without ascites; J96.02 Acute respiratory failure with hypercapnia; T68.XXXA Hypothermia, initial encounter; S70.312A Abrasion, left thigh, initial encounter; B35.8 Other dermatophytoses; R56.9 Unspecified convulsions; T43.295A Adverse effect of other antidepressants, initial encounter; L89.129 Pressure ulcer of left upper back, unspecified stage; L89.899 Pressure ulcer of other site, unspecified stage; B96.6 Bacteroides fragilis [B. fragilis] as the cause of diseases classified elsewhere; B95.1 Streptococcus, group B, as the cause of diseases classified elsewhere; Y92.9 Unspecified place or not applicable; Z74.01 Bed confinement status; Z87.891 Personal history of nicotine dependence; Z88.0 Allergy status to penicillin; Z88.8 Allergy status to other drugs, medicaments and biological substances; Z91.81 History of falling
CPT/HCPCS: 00902; 36415; 70450; 70551; 71045; 72193; 80048; 80053; 81001; 82550; 82565; 82803; 82962; 83605; 83735; 84443; 84484; 85025; 85027; 85610; 87040; 87070; 87075; 87077; 87205; 88304; 93005; 93010; 94660; 96361; 96365; 96366; 96367; 96368; 99291; 99292; J1644; J1650; J1956; J2250; J2704; J3010; J3370; J3490; J7030; J7040; J7060; J7120; J7121